=== PATIENT | male | born 1925 | race Caucasian/White ===

== ENCOUNTER 2016-07-14 11:07 | Inpatient (IN) | payer MEDICARE, BC ==
[2016-07-14] VITALS (8 sets, daily range): BP systolic 100–163; BP diastolic 52–93; PULSE 54–86; RESP 16–20; TEMP 96.2–98.1; O2SAT 94–98
[~2016-07-14 11:07] MED LIST: APIX5 PO; DOXA1 PO; FEXO180 PO; LASI20TA PO; LEVA500T PO; METO50TA PO; POTA-243 PO; PRAV20 PO
[2016-07-14 12:52] LABS: MEAN CORPUSCULAR HGB CONC 29.5 % (32.0-36.0)
--- NOTE | 2016-07-14 13:28 | PD ---
HPI Chief Complaint: Skin Problem Time Seen by Provider: 12:39 Travel History International Travel<30 days: No Contact w/Intl Traveler<30days: No Traveled to known affect area: No History of Present Illness HPI This is an 89-year-old male who presents to the emergency department reporting that he has a wound on his bottom. He is unable to provide much history. I spoke to the patient's over the phone who reports that he's been having difficulty standing up from his chair and he's been increasingly weak. Today he got stuck and wasn't able to stand so she called EMS. When EMS arrived they noticed that he had a wound on his buttock and were concerned so they referred him to the emergency department. Has not been ill lately. He does have a history of chronic lymphedema. He lives at home with his was also elderly. She does have a home health child day care provider that comes in for times a week to help bathe him. PFSH Past Medical History Hx Anticoagulant Therapy: Yes Atrial Fibrillation: Yes Heart Rhythm Problems: Yes (a-fib) Cancer: No Cardiovascular Problems: Yes (htn on meds.) High Cholesterol: Yes Chest Pain: No Congestive Heart Failure: No Diabetes: No Endocrine: No Genitourinary: No (denies) Hypertension: Yes Immune Disorder: No Musculoskeletal: No Neurologic: No Psychiatric: No Reproductive: No Respiratory: No Thyroid Disease: No Social History Alcohol Use: Yes (occas. beer) Tobacco Use: No Substance Use: No Allergies-Medications (Allergen,Severity, Reaction): Coded Allergies: No Known Allergies (Unverified , 07/14/16) Reported Meds & Prescriptions Reported Meds & Active Scripts Active Reported Betamethasone Valerate Topical 0.1% Cream 1 Applic TOPICAL BID Apply to affected area(s) Eliquis (Apixaban) 5 Mg Tab 5 Mg PO BID Vitamin D3 (Cholecalciferol) 50,000 Unit Tab 50,000 Units PO WEEKLY Review of Systems ROS Limitations: Poor Historian Physical Exam Narrative GENERAL: Chronically ill-appearing, disheveled. Morbidly obese. SKIN: Skin tear along the right gluteus with no underlying fluctuance or induration. Chronic thickened skin in the lower extremities with some weeping edema. HEAD: Atraumatic. Normocephalic. EYES: Pupils equal and round. No injection or drainage. ENT: Moist mucous membranes NECK: Trachea midline. CARDIOVASCULAR: Regular rate and rhythm. No murmur appreciated. RESPIRATORY: Clear to auscultation. Breath sounds equal bilaterally. GASTROINTESTINAL: Abdomen soft, non-tender, nondistended. MUSCULOSKELETAL: No obvious deformities. NEUROLOGICAL: Oriented to person and place but not time. No obvious cranial nerve deficits. Moving all extremities. Unable to roll onto his side without assistance. Data Data Last Documented VS Vital Signs Date Time Temp Pulse Resp B/P Pulse Ox O2 Delivery O2 Flow Rate FiO2 07/14/16 12:33 16 07/14/16 11:38 97.7 60 100/52 96 Orders Complete Blood Count With Diff (07/14/16 12:51) Comprehensive Metabolic Panel (07/14/16 12:51) ^ Insert Iv (07/14/16 12:51) Prothrombin Time / Inr (Pt) (07/14/16 14:28) Act Partial Throm Time (Ptt) (07/14/16 14:28) Type And Screen (07/14/16 14:28) Pantoprazole Inj (Protonix Inj) (07/14/16 15:45) Pantoprazole Inj (Protonix Inj) (07/14/16 15:45) Admit Order (Ed Use Only) (07/14/16 14:42) Labs Laboratory Tests Test 07/14/16 13:30 White Blood Count 8.6 TH/MM3 Red Blood Count 3.25 MIL/MM3 Hemoglobin 7.6 GM/DL Hematocrit 25.8 % Mean Corpuscular Volume 79.6 FL Mean Corpuscular Hemoglobin 23.5 PG Mean Corpuscular Hemoglobin 29.5 % Concent Red Cell Distribution Width 18.0 % Platelet Count 212 TH/MM3 Mean Platelet Volume 7.5 FL Neutrophils (%) (Auto) 83.4 % Lymphocytes (%) (Auto) 7.2 % Monocytes (%) (Auto) 7.7 % Eosinophils (%) (Auto) 1.4 % Basophils (%) (Auto) 0.3 % Neutrophils # (Auto) 7.2 TH/MM3 Lymphocytes # (Auto) 0.6 TH/MM3 Monocytes # (Auto) 0.7 TH/MM3 Eosinophils # (Auto) 0.1 TH/MM3 Basophils # (Auto) 0.0 TH/MM3 CBC Comment AUTO DIFF Differential Comment AUTO DIFF CONFIRMED Ovalocytes 1+ Sodium Level 146 MEQ/L Potassium Level 3.9 MEQ/L Chloride Level 110 MEQ/L Carbon Dioxide Level 28.8 MEQ/L Anion Gap 7 MEQ/L Blood Urea Nitrogen 48 MG/DL Creatinine 2.43 MG/DL Estimat Glomerular Filtration 25 ML/MIN Rate Random Glucose 105 MG/DL Calcium Level 8.2 MG/DL Total Bilirubin 0.5 MG/DL Aspartate Amino Transf 26 U/L (AST/SGOT) Alanine Aminotransferase 21 U/L (ALT/SGPT) Alkaline Phosphatase 122 U/L Total Protein 6.6 GM/DL Albumin 1.9 GM/DL MDM Medical Decision Making Medical Screen Exam Complete: Yes Emergency Medical Condition: Yes Interpretation(s) Afebrile, no tachycardia, normotensive Anemia Renal insufficiency Differential Diagnosis Abscess, cellulitis, electrolyte abnormality, anemia Narrative Course This is a chronically ill-appearing 89-year-old male who presents to the emergency department with general weakness unable to stand independently. He lives alone with his elderly . On exam he has some breakdown in his buttock area which they were concerned about but there is no obvious abscess or ulceration there. Labs were obtained given his ill appearance and he has evidence of severe anemia. He was Hemoccult-positive. He was started on pantoprazole and will be admitted. HemaPrompt Point of Care Internal Pos. & Neg. Controls: Passed Fecal Specimen Occult Blood: Positive Physician Communication Physician Communication Discussed with Dr. Perrin Diagnosis Primary Impression: GI bleed Qualified Code: K92.2 - Gastrointestinal hemorrhage, unspecified gastrointestinal hemorrhage type Admitting Information Admitting Physician Requests: Admit Vania Alonso MD Jul 14, 2016 13:28
[2016-07-14] MEDS ORDERED: CHOL1TAB16 PO (13:46)
[2016-07-14] MEDS ORDERED: APIX5TAB PO (13:46)
[2016-07-14] MEDS ORDERED: BETA0.1C TOPICAL (13:46)
[2016-07-14] MEDS ORDERED: WARF-23 PO (13:46)
[2016-07-14 13:58] LABS: AUTOMATED NEUTROPHIL # 7.2 TH/MM3 (1.8-7.7); BASOPHIL % 0.3 % (0.0-2.0); EOSINOPHIL # 0.1 TH/MM3 (0-0.4); EOSINOPHIL % 1.4 % (0.0-4.0); HEMATOCRIT 25.8 % (39.0-51.0); LYMPH % 7.2 % (9.0-44.0); LYMPHOCYTE # 0.6 TH/MM3 (1.0-4.8); MEAN CELL VOLUME 79.6 FL (80.0-100.0); MEAN CORPUSCULAR HEMOGLOBIN 23.5 PG (27.0-34.0); MONO % 7.7 % (0.0-8.0); NEUT % 83.4 % (16.0-70.0); PLATELET COUNT 212 TH/MM3 (150-450); RED BLOOD COUNT 3.25 MIL/MM3 (4.50-5.90); WHITE BLOOD COUNT 8.6 TH/MM3 (4.0-11.0)
[2016-07-14 14:01] LABS: HEMO FLAGS AUTO DIFF
[2016-07-14 14:20] LABS: ALKALINE PHOSPHATASE 122 U/L (45-117); ALT (GPT) 21 U/L (12-78); ANION GAP 7 MEQ/L (5-15); AST (GOT) 26 U/L (15-37); BICARBONATE 28.8 MEQ/L (21.0-32.0); BLOOD UREA NITROGEN 48 MG/DL (7-18); CHLORIDE 110 MEQ/L (98-107); GLOMERULAR FILTRATION RATE 25 ML/MIN (>89); POTASSIUM 3.9 MEQ/L (3.5-5.1); SODIUM (NA) 146 MEQ/L (136-145); TOTAL BILIRUBIN ADULT 0.5 MG/DL (0.2-1.0)
[2016-07-14 14:41] LABS: OVALOCYTES 1+ (NORMAL); SCAN/DIFF AUTO DIFF CONFIRMED
[2016-07-14] MEDS: PANTOPRAZOLE INJ 80 MG in SODIUM CHLORIDE 0.9% INJ 100 ML IV SCH (15:33)
[2016-07-14 15:45] LABS: APTT (PATIENT) 35.1 SEC (24.3-30.1); INTERNATIONAL NORMALIZED RATIO 1.3 RATIO; PROTHROMBIN TIME - PATIENT 14.5 SEC (9.8-11.6)
[2016-07-14] MEDS ORDERED: PANTOPRAZOLE INJ 80 MG in SODIUM CHLORIDE 0.9% INJ 35 ML IV ONE (15:45)
[2016-07-14] MEDS ORDERED: SODIUM CHLORIDE 0.9% FLUSH 10 ML FLUSH IV FLUSH PRN (16:15)
[2016-07-14] MEDS ORDERED: MAGNESIUM HYDROXIDE SUSP 30 ML CUP PO PRN (16:15)
[2016-07-14] MEDS ORDERED: ONDANSETRON HCL 4 MG/2 ML VIAL IVP PRN (16:15)
[2016-07-14] MEDS ORDERED: ACETAMINOPHEN 325 MG TAB PO PRN (16:15)
[2016-07-14] MEDS ORDERED: NALOXONE HCL 0.4 MG/ML AMP IV PRN (16:15)
[2016-07-14] MEDS ORDERED: PANTOPRAZOLE SODIUM 40 MG VIAL IV PUSH SCH (16:30)
[2016-07-14] MEDS ORDERED: DEXT 5%-NACL 0.45% 1000 ML INJ 1,000 ML IV SCH (17:00)
--- NOTE | 2016-07-14 17:20 | RADRPT ---
EXAM DATE/TIME: 07/14/2016 16:34 [facility] COMPARISON: No previous studies available for comparison. INDICATIONS : Increased BUN/creatinine. MEDICAL HISTORY : Hypertension. Hypercholesterolemia. Afib. Type 2 pressure ulcer. Anticoagulant therapy. Exam is li mited by the patient's body habitus. SURGICAL HISTORY : No known previous surgical history. ENCOUNTER: Initial ACUITY: 1 day PAIN SCORE: 0/10 LOCATION: Bilateral flank MEASUREMENTS: RIGHT KIDNEY: 12.3 x 6.4 x 6.1 cm LEFT KIDNEY: 12.7 x 6.1 x 7.3 cm FINDINGS: RIGHT KIDNEY: Renal cortex is normal in thickness and echotexture. Prominent collecting system is evident. LEFT KIDNEY: Prominence of the collecting system is evident. BLADDER: Within normal limits given the degree of distension. CONCLUSION: Mild to moderate prominence of the collecting system bilaterally. I do not see dilat ed ureter. Héctor Machado MD FACR on July 14, 2016 at 17:16 Board Certified Radiologist. This report was verified electronically.
[2016-07-14] MEDS ORDERED: PEG (High)/E-LYTE SOLN 4000 ML BTL PO ONE (19:15)
[2016-07-14] MEDS: SODIUM CHLORIDE 0.9% FLUSH 10 ML FLUSH IV FLUSH SCH (21:00)
[2016-07-15] VITALS (11 sets, daily range): BP systolic 134–161; BP diastolic 68–97; PULSE 85–97; RESP 18–22; TEMP 95.3–97.9; O2SAT 94–97
[2016-07-15] MEDS: PANTOPRAZOLE INJ 80 MG in SODIUM CHLORIDE 0.9% INJ 100 ML IV SCH ×3 (00:18→21:04)
[2016-07-15 06:27] LABS: AUTOMATED NEUTROPHIL # 6.3 TH/MM3 (1.8-7.7); BASOPHIL % 0.6 % (0.0-2.0); EOSINOPHIL # 0.2 TH/MM3 (0-0.4); EOSINOPHIL % 2.4 % (0.0-4.0); HEMATOCRIT 27.5 % (39.0-51.0); LYMPH % 8.2 % (9.0-44.0); LYMPHOCYTE # 0.6 TH/MM3 (1.0-4.8); MEAN CELL VOLUME 79.3 FL (80.0-100.0); MEAN CORPUSCULAR HEMOGLOBIN 24.5 PG (27.0-34.0); MEAN CORPUSCULAR HGB CONC 30.9 % (32.0-36.0); MONO % 6.8 % (0.0-8.0); PLATELET COUNT 206 TH/MM3 (150-450); RED BLOOD COUNT 3.47 MIL/MM3 (4.50-5.90); RED CELL DISTRIBUTION WIDTH 17.8 % (11.6-17.2); WHITE BLOOD COUNT 7.7 TH/MM3 (4.0-11.0)
[2016-07-15 06:43] LABS: HEMO FLAGS AUTO DIFF
[2016-07-15 06:49] LABS: BICARBONATE 27.7 MEQ/L (21.0-32.0); POTASSIUM 3.4 MEQ/L (3.5-5.1)
[2016-07-15 08:22] LABS: OVALOCYTES 2+ (NORMAL); SCAN/DIFF AUTO DIFF CONFIRMED
[2016-07-15] MEDS: SODIUM CHLORIDE 0.9% FLUSH 10 ML FLUSH IV FLUSH SCH ×2 (09:00→21:00)
--- NOTE | 2016-07-15 10:20 | HHI.HP ---
History of Present Illness Primary Care Physician Non-Staff Admission Diagnosis gi bleed Diagnoses: (1) GI bleed History of Present Illness 89 y CM. HOME VISIT PATIENT. PT BEGAN HAVING GIB. LIVES AT HOME WITH HIS . TAKING LESS PO AND ENDED UP COMING TO [facility] ER. FOUND W SEVERE ANEMIA. TRANSFUSED TWO UNITS PRBC'S. PT TYPICALLY IS UP AND WALKS SOME IN HIS BEDROOM, AND BACK AND FORTH SOME TO THE RESTROOM. HAS HAD GENERAL DECLINE OVER THE LAST THREE WEEKS PER THE DGTR. DGTR IS AT BEDSIDE. Review of Systems ROS Limitations: Clinical Condition, Altered Mental Status, Hearing Impaired, Poor Historian Past Family Social History Allergies: Coded Allergies: No Known Allergies (Unverified , 07/14/16) Past Medical History Past Medical History Hx Anticoagulant Therapy: Yes Atrial Fibrillation: Yes Heart Rhythm Problems: Yes (a-fib) Cancer: No Cardiovascular Problems: Yes (htn on meds.) High Cholesterol: Yes Chest Pain: No Congestive Heart Failure: No Diabetes: No Endocrine: No Genitourinary: No (denies) Hypertension: Yes Immune Disorder: No Musculoskeletal: No Neurologic: No Psychiatric: No Reproductive: No Respiratory: No Thyroid Disease: No Social History Alcohol Use: Yes (occas. beer) Tobacco Use: No Substance Use: No Allergies-Medications Allergies-Medications (Allergen,Severity, Reaction): Coded Allergies: No Known Allergies (Unverified , 07/14/16) Reported Meds & Prescriptions Reported Meds & Active Scripts Active Reported Betamethasone Valerate Topical 0.1% Cream 1 Applic TOPICAL BID Apply to affected area(s) Eliquis (Apixaban) 5 Mg Tab 5 Mg PO BID Vitamin D3 (Cholecalciferol) 50,000 Unit Tab 50,000 Units PO WEEKLY Physical Exam Vital Signs Vital Signs Date Time Temp Pulse Resp B/P Pulse Ox O2 Delivery O2 Flow Rate FiO2 07/15/16 09:38 90 07/15/16 09:29 97 21 07/15/16 08:00 96.4 94 20 134/72 95 07/15/16 04:00 96.8 94 22 139/76 94 07/15/16 02:15 97.6 85 22 144/88 95 07/15/16 00:08 97.5 85 18 145/96 97 07/15/16 00:00 97.9 87 22 153/93 94 07/14/16 23:52 97.9 86 18 153/93 94 07/14/16 23:30 97.9 86 18 153/93 94 07/14/16 21:31 96.2 85 20 145/78 95 07/14/16 21:15 96.7 54 20 156/72 95 07/14/16 20:00 96.7 54 20 156/72 95 07/14/16 16:59 98.1 79 17 163/76 96 Room Air 07/14/16 15:33 97.8 68 16 137/63 98 Room Air 07/14/16 12:33 16 07/14/16 11:38 97.7 60 18 100/52 96 Physical Exam GENERAL: This is a well-nourished, well-developed patient, in no apparent distress. SKIN: LARGE CHRONIC STASIS CHANGES BLE'S TO PATELLAS, HYPERKERATOTIC; LARGE BUTTOCK HEMATOMA R>L WITH OOZING HEAD: Atraumatic. Normocephalic. No temporal or scalp tenderness. EYES: Pupils equal round and reactive. Extraocular motions intact. No scleral icterus. No injection or drainage. ENT: Nose without bleeding, purulent drainage or septal hematoma. Throat without erythema, tonsillar hypertrophy or exudate. Uvula midline. Airway patent. NECK: Trachea midline. No JVD or lymphadenopathy. Supple, nontender, no meningeal signs. CARDIOVASCULAR: Regular rate and rhythm without murmurs, gallops, or rubs. RESPIRATORY: Clear to auscultation. Breath sounds equal bilaterally. No wheezes , rales, or rhonchi. GASTROINTESTINAL: Abdomen soft, non-tender, nondistended. No hepato-splenomegaly , or palpable masses. No guarding. MUSCULOSKELETAL: Extremities without clubbing, cyanosis. No joint tenderness, effusion, or edema noted. No calf tenderness. Negative Homans sign bilaterally. NEUROLOGICAL: Awake and alert. Cranial nerves II through XII intact. Motor and sensory grossly within normal limits. 1 out of 5 muscle strength in all muscle groups. Normal speech. Laboratory Laboratory Tests Test 07/14/16 07/14/16 07/14/16 07/14/16 13:30 14:50 16:27 16:42 White Blood Count 8.6 Red Blood Count 3.25 Hemoglobin 7.6 Hematocrit 25.8 Mean Corpuscular Volume 79.6 Mean Corpuscular Hemoglobin 23.5 Mean Corpuscular Hemoglobin 29.5 Concent Red Cell Distribution Width 18.0 Platelet Count 212 Mean Platelet Volume 7.5 Neutrophils (%) (Auto) 83.4 Lymphocytes (%) (Auto) 7.2 Monocytes (%) (Auto) 7.7 Eosinophils (%) (Auto) 1.4 Basophils (%) (Auto) 0.3 Neutrophils # (Auto) 7.2 Lymphocytes # (Auto) 0.6 Monocytes # (Auto) 0.7 Eosinophils # (Auto) 0.1 Basophils # (Auto) 0.0 CBC Comment AUTO DIFF Differential Comment AUTO DIFF CONFIRMED Ovalocytes 1+ Sodium Level 146 Potassium Level 3.9 Chloride Level 110 Carbon Dioxide Level 28.8 Anion Gap 7 Blood Urea Nitrogen 48 Creatinine 2.43 Estimat Glomerular Filtration 25 Rate Random Glucose 105 Calcium Level 8.2 Total Bilirubin 0.5 Aspartate Amino Transf 26 (AST/SGOT) Alanine Aminotransferase 21 (ALT/SGPT) Alkaline Phosphatase 122 Total Protein 6.6 Albumin 1.9 Prothrombin Time 14.5 Prothromb Time International 1.3 Ratio Activated Partial 35.1 Thromboplast Time Blood Type AB POSITIVE AB POSITIVE Antibody Screen NEGATIVE Blood Bank Comment Crossmatch Leukocyte-Reduced Red Blood Cells Test 07/15/16 06:06 White Blood Count 7.7 Red Blood Count 3.47 Hemoglobin 8.5 Hematocrit 27.5 Mean Corpuscular Volume 79.3 Mean Corpuscular Hemoglobin 24.5 Mean Corpuscular Hemoglobin 30.9 Concent Red Cell Distribution Width 17.8 Platelet Count 206 Mean Platelet Volume 7.0 Neutrophils (%) (Auto) 82.0 Lymphocytes (%) (Auto) 8.2 Monocytes (%) (Auto) 6.8 Eosinophils (%) (Auto) 2.4 Basophils (%) (Auto) 0.6 Neutrophils # (Auto) 6.3 Lymphocytes # (Auto) 0.6 Monocytes # (Auto) 0.5 Eosinophils # (Auto) 0.2 Basophils # (Auto) 0.0 CBC Comment AUTO DIFF Differential Comment AUTO DIFF CONFIRMED Ovalocytes 2+ Sodium Level 150 Potassium Level 3.4 Chloride Level 113 Carbon Dioxide Level 27.7 Anion Gap 9 Blood Urea Nitrogen 45 Creatinine 2.18 Estimat Glomerular Filtration 29 Rate Random Glucose 104 Calcium Level 8.2 Result Diagram: 07/15/16 0606 07/15/16 0606 Imaging Last 72 hours Impressions Renal Ultrasound 07/14/16 0000 Signed Impressions: Service Date/Time: Thursday, July 14, 2016 16:34 - CONCLUSION: Mild to moderate prominence of the collecting system bilaterally. I do not see dilated ureter. Héctor Machado MD FACR Assessment and Plan Assessment and Plan GIB ACUTE BLOOD LOSS ANEMIA LARGE BUTTOCK HEMATOMA WITH BLEEDING AFIB ON ELIQUIS HYPERNATREMIA HERBERTH URINARY OBSTRUCTION OF RENAL US HYPOKALEMIA DEHYDRATION CHRONIC EDEMA ELEPHANTIASIS W STASIS CHANGES HTN CAD PLAN: NPO IVF REPLACE K IV PROTONIX GTT PLACE FALL PSA CHECK GI CONSULT NEPHRO CONSULT WOUND CONSULT INPT ADMIT FOR THE ABOVE DX AND PLAN. EXPECT THREE D INPT STAY. PT WOULD W/O INPT WORKUP OUTLINED ABOVE. Problem Qualifiers (1) GI bleed: Qualified Code: K92.2 - Gastrointestinal hemorrhage, unspecified gastrointestinal hemorrhage type Berto Perrni MD Jul 15, 2016 10:20
[2016-07-15] MEDS ORDERED: D5W + KCL 20 MEQ INJ 1,000 ML IV SCH (12:00)
[2016-07-15] MEDS ORDERED: PROPOFOL 200 MG/20 ML AMP IV ONE (15:11)
--- NOTE | 2016-07-15 15:55 | GIPROC ---
[facility] [address] [facility]. [facility], [address] COLONOSCOPY PROCEDURE REPORT EXAM DATE: 07/15/2016 PATIENT NAME: Marcus Ling MR #: [id number] BIRTHDATE: 1925 ENDOSCOPIST: Hans Vieyra MD ORDER #: [id number] CURRICULUM MANAGER: Efrem Florence and xAel Perez STATUS: inpatient INDICATIONS: The patient is a 89 yr old male here for a colonoscopy due to rectal bleeding PROCEDURE PERFORMED: Colonoscopy with polypectomy MEDICATIONS: None and Per Anesthesia. PREP QUALITY: good ESTIMATED BLOOD LOSS: None CONSENT: The patient understands the risks and benefits of the procedure and understands that these risks include, but are not limited to: sedation, allergic reaction, infection, perforation and/or bleeding. Alternative means of evaluation and treatment include, among others: physical exam, x-rays, and/or surgical intervention. The patient elects to proceed with this endoscopic procedure. medical equipment was checked for proper function. Hand hygiene and appropriate measures for infection prevention was taken. After the risks, benefits and alternatives of the procedure were thoroughly explained, Informed consent was verified, confirmed and timeout was successfully executed by the treatment team. A digital exam revealed no abnormalities of the rectum and Early decubitus ulcer noted in the coccyx area The Pentax EC-[id number] endoscope was introduced through the anus and advanced to the cecum, which was identified by both the appendix and ileocecal valve. The instrument was then slowly withdrawn as the colon was fully examined. COLON FINDINGS: Two large pedunculated polyps were found in the distal transverse colon. Adenomatous. A polypectomy was performed using snare cautery. The resection was complete and the polyp tissue was completely retrieved. Moderate diverticulosis was noted throughout the entire examined colon. A medium sized patch of abnormal mucosa was found in the rectum. The mucosa was erythematous, friable and nodular. Multiple biopsies were performed. The colon mucosa was otherwise normal. Retroflexed views revealed no abnormalities The scope was then completely withdrawn from the patient and the procedure terminated. PROCEDURE WITHDRAWAL TIME: 8.0minutes ADVERSE EVENTS: There were no complications. IMPRESSIONS: 1. Two large pedunculated polyps were found in the distal transverse colon; Adenomatous; polypectomy was performed using snare cautery 2. Moderate diverticulosis was noted throughout the entire examined colon 3. Medium sized abnormal mucosa was found in the rectum; The mucosa was erythematous, friable and nodular; multiple biopsies were performed 4. The colon mucosa was otherwise normal 5. Retroflexed views revealed no abnormalities 6. Revealed no abnormalities of the rectum 7. Early decubitus ulcer noted in the coccyx area RECOMMENDATIONS: 1. Await biopsy results. Biopsy results will not be ready for 7-10 days. If you don't hear from us in two weeks, call our office for results. 2. High fiber diet 3. Yearly hemoccult RECALL: Return 3 years Colonoscopy Hans Vieyra MD eSigned: Hans Vieyra MD 07/15/2016 3:55 PM cc: PATIENT NAME: Marcus Ling MR#: [id number]
--- NOTE | 2016-07-15 15:57 | GIPROC ---
[facility] [address] [facility]. [facility], [address] EGD PROCEDURE REPORT EXAM DATE: 07/15/2016 PATIENT NAME: Marcus Ling MR #: [id number] BIRTHDATE: 1925 ATTENDING: Hans Vieyra MD ORDER #: [id number] PICK UP MAN: Efrem Florence and Axel Perez STATUS: inpatient INDICATIONS: The patient is a 89 yr old male here for an EGD due to anemia PROCEDURE PERFORMED: EGD w/ biopsy MEDICATIONS: None and Per Anesthesia. TOPICAL ANESTHETIC: CONSENT: The patient understands the risks and benefits of the procedure and understands that these risks include, but are not limited to: sedation, allergic reaction, infection, perforation and/or bleeding. Alternative means of evaluation and treatment include, among others: physical exam, x-rays, and/or surgical intervention. The patient elects to proceed with this endoscopic procedure. medical equipment was checked for proper function. Hand hygiene and appropriate measures for infection prevention was taken. After the risks, benefits and alternatives of the procedure were thoroughly explained, Informed consent was verified, confirmed and timeout was successfully executed by the treatment team. The patient was anesthetized with topical anesthesia and the EC-[id number] (Pedi C) endoscope was introduced through the mouth and advanced to the second portion of the duodenum. Retroflexed views revealed no abnormalities The gastroscope was then slowly withdrawn and removed. STOMACH: There was erythematous moderate and erosive gastritis in the gastric antrum. Multiple biopsies were performed. The endoscopy was otherwise normal. ADVERSE EVENTS: There were no complications. IMPRESSIONS: 1. There was erythematous gastritis in the gastric antrum; multiple biopsies were performed 2. Normal endoscopy otherwise 3. Retroflexed views revealed no abnormalities RECOMMENDATIONS: 1. Await biopsy results. Biopsy results will not be ready for 7-10 days. If you don't hear from us in two weeks, call our office for biopsy results. 2. Continue PPI 3. Avoid NSAIDS PATIENT CONDITION: stable DISPOSITION: Inpatient REPEAT EXAM: Hans Vieyra MD eSigned: Hans Vieyra MD 07/15/2016 3:57 PM cc: PATIENT NAME: Marcus Ling MR#: [id number]
--- NOTE | 2016-07-15 16:04 | PD.CONS ---
HPI History of Present Illness This is a 89 year old male who was brought to the ER for evaluation of severe generalized weakness and found to have severe anemia. He has a hx of atrial fibrillation and takes Eliquis at home. He is a poor historian and therefore the history has been obtained from the patient and family. His family reports that he has been having generalized weakness and fatigue for the past 2 weeks and that this has progressively been getting worse. Yesterday, his was unable to get him up in the chair and therefore called for help. In the ER, he was found to have anemia with an HH of 7.6/25.8. He was given 2 units of PRBC and this came up to 8.5/27.5. He has a decubitus ulcer and reports that this bleeds from time to time, but he has not seen any blood in his stool. He denies any nausea, vomiting, abdominal pain. He does report that he has been having some loose stools, but his reports that these have been brown. He denies any hx of PUD and denies ever having an EGD/Colonoscopy in the past. Of note, he does have a history of prostate cancer and has had radiation for this in the past. (Suzette Bolden) PFSH Past Medical History Atrial fibrillation HTN Dyslipidemia Decubitus ulcer to coccyx Hx prostate cancer, radiation CAD Past Surgical History Denies (Suzette Bolden) Coded Allergies: No Known Allergies (Unverified , 07/14/16) Medications Allergies Coded Allergies Type Severity Reaction Last Updated Verified No Known Allergies 07/14/16 No Active Scripts Medications Dose Route/Sig Days Date Category Dose Instructions Betamethasone Valerate Topical 0.1% Cream 1 Applic TOPICAL BID 07/14/16 Reported Apply to affected area(s) Eliquis (Apixaban) 5 Mg Tab 5 Mg PO BID 07/14/16 Reported Vitamin D3 (Cholecalciferol) 50,000 Unit Tab 50,000 Units PO WEEKLY 07/14/16 Reported Family History Noncontributory Social History Denies the use of tobacco, etoh. (Suzette Bolden) Review of Systems Constitutional: COMPLAINS OF: Fatigue, DENIES: Weight loss, Change in appetite Respiratory: COMPLAINS OF: Shortness of breath, DENIES: Cough Cardiovascular: DENIES: Chest pain Gastrointestinal: DENIES: Abdominal pain, Black stools, Bloody stools, Constipation, Diarrhea, Nausea, Vomiting, Difficulty Swallowing, Anorexia, Heartburn Integumentary: DENIES: Abnormal pigmentation Neurologic: DENIES: Headache Psychiatric: DENIES: Confusion (Suzette Bolden) GI Exam Vitals I&O Vital Signs Date Time Temp Pulse Resp B/P Pulse Ox O2 Delivery O2 Flow Rate FiO2 07/15/16 15:58 91 18 156/89 96 07/15/16 15:53 88 18 135/77 96 07/15/16 15:45 98.1 96 18 117/69 96 07/15/16 12:00 97.1 97 20 137/83 95 07/15/16 09:38 90 07/15/16 09:29 97 21 07/15/16 08:00 96.4 94 20 134/72 95 07/15/16 04:00 96.8 94 22 139/76 94 07/15/16 02:15 97.6 85 22 144/88 95 07/15/16 00:08 97.5 85 18 145/96 97 07/15/16 00:00 97.9 87 22 153/93 94 07/14/16 23:52 97.9 86 18 153/93 94 07/14/16 23:30 97.9 86 18 153/93 94 07/14/16 21:31 96.2 85 20 145/78 95 07/14/16 21:15 96.7 54 20 156/72 95 07/14/16 20:00 96.7 54 20 156/72 95 07/14/16 16:59 98.1 79 17 163/76 96 Room Air I/O 07/14/16 07/14/16 07/14/16 07/15/16 07/15/16 07/15/16 07:00 15:00 23:00 07:00 15:00 23:00 Intake Total 0 ml 2968 ml 400 ml Balance 0 ml 2968 ml 400 ml Intake Oral 0 ml 2160 ml IV Total 208 ml 400 ml Packed Cells 600 ml # Voids 2 4 1 # Bowel Movements 2 4 Imaging Last Impressions Renal Ultrasound 07/14/16 0000 Signed Impressions: Service Date/Time: Thursday, July 14, 2016 16:34 - CONCLUSION: Mild to moderate prominence of the collecting system bilaterally. I do not see dilated ureter. Héctor Machado MD FACR Laboratory Test 07/14/16 07/14/16 07/15/16 07/15/16 16:27 16:42 06:06 10:50 Crossmatch Leukocyte-Reduced Red Blood Cells Blood Bank Comment Blood Type AB POSITIVE White Blood Count 7.7 TH/MM3 Red Blood Count 3.47 MIL/MM3 Hemoglobin 8.5 GM/DL Hematocrit 27.5 % Mean Corpuscular Volume 79.3 FL Mean Corpuscular Hemoglobin 24.5 PG Mean Corpuscular Hemoglobin 30.9 % Concent Red Cell Distribution Width 17.8 % Platelet Count 206 TH/MM3 Mean Platelet Volume 7.0 FL Neutrophils (%) (Auto) 82.0 % Lymphocytes (%) (Auto) 8.2 % Monocytes (%) (Auto) 6.8 % Eosinophils (%) (Auto) 2.4 % Basophils (%) (Auto) 0.6 % Neutrophils # (Auto) 6.3 TH/MM3 Lymphocytes # (Auto) 0.6 TH/MM3 Monocytes # (Auto) 0.5 TH/MM3 Eosinophils # (Auto) 0.2 TH/MM3 Basophils # (Auto) 0.0 TH/MM3 CBC Comment AUTO DIFF Differential Comment AUTO DIFF CONFIRMED Ovalocytes 2+ Sodium Level 150 MEQ/L Potassium Level 3.4 MEQ/L Chloride Level 113 MEQ/L Carbon Dioxide Level 27.7 MEQ/L Anion Gap 9 MEQ/L Blood Urea Nitrogen 45 MG/DL Creatinine 2.18 MG/DL Estimat Glomerular Filtration 29 ML/MIN Rate Random Glucose 104 MG/DL Calcium Level 8.2 MG/DL Prostate Specific Antigen 0.03 NG/ML Screen Physical Examination HEENT: Normocephalic; atraumatic; no jaundice. CHEST: Expiratory wheezing. CARDIAC: Irregular ABDOMEN: Soft, nondistended, nontender; no hepatosplenomegaly; bowel sounds are present in all four quadrants. EXTREMITIES: BLE edema. SKIN: Normal; no rash; no jaundice. HAND LAMINATOR: No focal deficits; lethargic and oriented times two (Suzette Bolden) Assessment and Plan Plan ASSESSMENT: - Anemia. Family reports generalized weakness x 2 weeks, progressively worsening. No obvious active bleeding. HH of 7.6/25.8 on admission. S/P 2 units of PRBC and this came up to 8.5/27.5. He has a decubitus ulcer and reports that this bleeds from time to time, but he has not seen any blood in his stool. He denies any nausea, vomiting, abdominal pain. He does report that he has been having some loose stools, but his reports that these have been brown. He denies any hx of PUD and denies ever having an EGD/Colonoscopy in the past. Of note, he does have a history of prostate cancer and has had radiation for this in the past. - Afib, on Eliquis at home. On hold. - Large buttock hematoma/ulcer. Per primary - HERBERTH with electrolyte abnormalities, per primary - HTN, CAD per primary PLAN: - Plan for egd/colonoscopy today - Obtain consents - NPO - Golytely - PPI - Monitor HH - Transfuse as necessary - Supportive care - Further recommendations to follow based on results of above - PT seen and examined by Dr. Vieyra and myself and this note is written on his behalf (Suzette Bolden) Physician Comments Patient seen and examined Agree with above Continue with current supportive care Plan for an EGD and a colonoscopy today (Hans Vieyra MD) Suzette Bolden Jul 15, 2016 16:04 Hans Vieyra MD Jul 15, 2016 17:46
--- NOTE | 2016-07-15 19:23 | PD.CONS ---
HPI Consult Requested By Reason for Consult Acute renal insufficiency. Primary Care Physician Non-Staff History of Present Illness This patient is a 10-year-old male with a history of hypertension, diabetes mellitus as well as atrial fibrillation presenting with fatigue and noted to be profoundly anemic on presentation. Patient now status post upper endoscopy and colonoscopy revealing gastritis as well as colonic polyps. Presentation patient had evidence of hyponatremia with a sodium of 146 and a creatinine of 2.43. Baseline creatinine level based on preadmission records appears to be about 1.2 with an estimated GFR of 57. Patient denies using NSAIDs prior to admission for analgesia. No vomiting or diarrhea. Review of Systems Constitutional: COMPLAINS OF: Fatigue, Change in appetite, DENIES: Diaphoretic episodes, Fever, Weight gain, Weight loss, Chills, Dizziness, Night Sweats Respiratory: DENIES: Apneas, Cough, Snoring, Wheezing, Hemoptysis, Sputum production, Shortness of breath Cardiovascular: DENIES: Chest pain, Palpitations, Syncope, Dyspnea on Exertion , PND, Lower Extremity Edema, Orthopnea, Claudication Musculoskeletal: COMPLAINS OF: Joint pain, DENIES: Muscle aches, Stiffness, Joint Swelling, Back pain, Neck pain Psychiatric: DENIES: Anxiety Past Family Social History Allergies: Coded Allergies: No Known Allergies (Unverified , 07/14/16) Past Medical History Hypertension Atrial fibrillation Diabetes mellitus CKD stage III with GFR below 60 previously. Past Surgical History Noncontributory to current complaint. Reported Medications Reported Meds & Active Scripts Active Reported Betamethasone Valerate Topical 0.1% Cream 1 Applic TOPICAL BID Apply to affected area(s) Eliquis (Apixaban) 5 Mg Tab 5 Mg PO BID Vitamin D3 (Cholecalciferol) 50,000 Unit Tab 50,000 Units PO WEEKLY Active Ordered Medications Current Medications Pantoprazole Sodium 80 mg/ Sodium Chloride 35 ml @ 420 mls/hr ONCE ONCE IV Last administered on 07/14/16 14:57; Start 07/14/16 at 15:45; Stop 07/14/16 at 15:49; Status DC Pantoprazole Sodium/Sodium Chloride (Protonix Inj/NS Inj) 100 ml @ 10 mls/hr Q10H IV Last administered on 07/15/16 11:45; Start 07/14/16 at 15:45 Sodium Chloride (NS Flush) 2 ml UNSCH PRN IV FLUSH FLUSH AFTER USING IV ACCESS ; Start 07/14/16 at 16:15 Sodium Chloride (NS Flush) 2 ml BID IV FLUSH ; Start 07/14/16 at 21:00 Acetaminophen (Tylenol) 650 mg Q4H PRN PO TEMP > 100.4; Start 07/14/16 at 16:15 Ondansetron HCl (Zofran Inj) 4 mg Q6H PRN IVP NAUSEA OR VOMITING; Start at 16:15 Magnesium Hydroxide (Milk Of Magnesia Liq) 30 ml Q12H PRN PO CONSTIPATION; Start 07/14/16 at 16:15 Naloxone HCl (Narcan Inj) 0.4 mg UNSCH PRN IV SEE LABEL COMMENTS; Start at 16:15 Clonidine 0.1 mg 0.1 mg Q6H PRN PO SBP>160, DBP>90; Start 07/14/16 at 16:30 Dextrose/Sodium Chloride (D5W-1/2 NS 1000 ml Inj) 1,000 ml @ 42 mls/hr [id number] IV Last administered on 07/14/16 16:58; Start 07/14/16 at 17:00; Stop at 10:33; Status DC Pantoprazole Sodium (Protonix Inj) 40 mg Q24H IV PUSH ; Start 07/14/16 at 16:30 ; Stop 07/14/16 at 16:43; Status DC Polyethylene Glycol/ Electrolytes 4000 ml 4,000 ml ONCE ONCE PO Last administered on 07/14/16 19:15; Start 07/14/16 at 19:15; Stop 07/14/16 at 19:16 ; Status DC Potassium Chloride/Dextrose (D5W + KCl 20 Meq Inj) 1,000 ml @ 42 mls/hr [id number] IV Last administered on 07/15/16 12:00; Start 07/15/16 at 12:00 Propofol (Diprivan 200 Mg/20 ml Inj) 200 mg STK-MED ONCE IV ; Start 07/15/16 at 15:11; Stop 07/15/16 at 16:34; Status DC Family History Denies known family history of renal disease. Social History No current history of alcohol abuse or illicit drug use. Physical Exam Vital Signs Vital Signs Date Time Temp Pulse Resp B/P Pulse Ox O2 Delivery O2 Flow Rate FiO2 07/15/16 17:00 95.3 96 20 135/97 95 07/15/16 15:58 91 18 156/89 96 07/15/16 15:53 88 18 135/77 96 07/15/16 15:45 98.1 96 18 117/69 96 07/15/16 12:00 97.1 97 20 137/83 95 07/15/16 09:38 90 07/15/16 09:29 97 21 07/15/16 08:00 96.4 94 20 134/72 95 07/15/16 04:00 96.8 94 22 139/76 94 07/15/16 02:15 97.6 85 22 144/88 95 07/15/16 00:08 97.5 85 18 145/96 97 07/15/16 00:00 97.9 87 22 153/93 94 07/14/16 23:52 97.9 86 18 153/93 94 07/14/16 23:30 97.9 86 18 153/93 94 07/14/16 21:31 96.2 85 20 145/78 95 07/14/16 21:15 96.7 54 20 156/72 95 07/14/16 20:00 96.7 54 20 156/72 95 Physical Exam GENERAL: Elderly male not in respiratory distress. Obese. SKIN: Warm and dry. HEAD: Normocephalic. EYES: No scleral icterus. No injection or drainage. NECK: Supple, trachea midline. No JVD or lymphadenopathy. CARDIOVASCULAR: Regular rate and rhythm without murmurs, gallops, or rubs. RESPIRATORY: Breath sounds equal bilaterally. No accessory muscle use. GASTROINTESTINAL: Abdomen soft, non-tender, nondistended. MUSCULOSKELETAL: No cyanosis, no current significant edema but there is wrinkling of the skin of the lower extremities i.e. legs suggesting that the patient has had significant edema in the recent past BACK: No CVA tenderness. Laboratory Laboratory Tests Test 07/15/16 07/15/16 06:06 10:50 White Blood Count 7.7 Red Blood Count 3.47 Hemoglobin 8.5 Hematocrit 27.5 Mean Corpuscular Volume 79.3 Mean Corpuscular Hemoglobin 24.5 Mean Corpuscular Hemoglobin 30.9 Concent Red Cell Distribution Width 17.8 Platelet Count 206 Mean Platelet Volume 7.0 Neutrophils (%) (Auto) 82.0 Lymphocytes (%) (Auto) 8.2 Monocytes (%) (Auto) 6.8 Eosinophils (%) (Auto) 2.4 Basophils (%) (Auto) 0.6 Neutrophils # (Auto) 6.3 Lymphocytes # (Auto) 0.6 Monocytes # (Auto) 0.5 Eosinophils # (Auto) 0.2 Basophils # (Auto) 0.0 CBC Comment AUTO DIFF Differential Comment AUTO DIFF CONFIRMED Ovalocytes 2+ Sodium Level 150 Potassium Level 3.4 Chloride Level 113 Carbon Dioxide Level 27.7 Anion Gap 9 Blood Urea Nitrogen 45 Creatinine 2.18 Estimat Glomerular Filtration 29 Rate Random Glucose 104 Calcium Level 8.2 Prostate Specific Antigen 0.03 Screen Result Diagram: 07/15/16 0606 07/15/16 0606 Imaging Last 48 hours Impressions Renal Ultrasound 07/14/16 0000 Signed Impressions: Service Date/Time: Thursday, July 14, 2016 16:34 - CONCLUSION: Mild to moderate prominence of the collecting system bilaterally. I do not see dilated ureter. Héctor Machado MD FACR Assessment and Plan Problem List: (1) Acute kidney insufficiency Plan: Primarily secondary to intravascular volume depletion from poor fluid intake prior to admission as well as recent GI bleed. Agree with IV hydration but would increase rate. Unsure as to the clinical significance of the finding on the ultrasound. Patient denying symptoms suggesting prostatism. Continue to monitor urine output and renal indices. Check vitamin D level and intact PTH level to screen for secondary hyperparathyroidism of chronic kidney disease. Medications should be adjusted for the patient's estimated GFR if clinically indicated. Avoid agents with significant potential for nephrotoxicity possible including NSAIDs for analgesia, iodine contrast agents. Gadolinium is contraindicated if the GFR is below 30. (2) Hypernatremia Plan: Secondary to significant free water deficit. (3) CKD (chronic kidney disease) stage 3, GFR 30-59 ml/min Plan: Most likely related to nephrosclerosis of hypertension and aging. (4) HTN (hypertension) Candido Harris MD Jul 15, 2016 19:23
[2016-07-15] MEDS ORDERED: POTASSIUM CHLORIDE INJ 20 MEQ in DEXTROSE 5% IN WATE 1000ML INJ 1,000 ML IV SCH ×2 (19:30)
[2016-07-15] MEDS: D5W + KCL 20 MEQ INJ 1,000 ML IV SCH (21:00)
[2016-07-16] VITALS (8 sets, daily range): BP systolic 127–174; BP diastolic 78–96; PULSE 86–100; RESP 18–22; TEMP 96–97.7; O2SAT 91–96
[2016-07-16 07:22] LABS: HEMATOCRIT 27.2 % (39.0-51.0); MEAN CELL VOLUME 78.4 FL (80.0-100.0); MEAN CORPUSCULAR HEMOGLOBIN 25.1 PG (27.0-34.0); PLATELET COUNT 222 TH/MM3 (150-450); RED BLOOD COUNT 3.47 MIL/MM3 (4.50-5.90); REVIEW FLAG FINAL; WHITE BLOOD COUNT 8.5 TH/MM3 (4.0-11.0)
[2016-07-16 07:32] LABS: BICARBONATE 29.8 MEQ/L (21.0-32.0); POTASSIUM 3.3 MEQ/L (3.5-5.1)
[2016-07-16] MEDS: PANTOPRAZOLE INJ 80 MG in SODIUM CHLORIDE 0.9% INJ 100 ML IV SCH (07:58)
[2016-07-16] MEDS: D5W + KCL 20 MEQ INJ 1,000 ML IV SCH ×2 (07:58→20:29)
[2016-07-16] MEDS: SODIUM CHLORIDE 0.9% FLUSH 10 ML FLUSH IV FLUSH SCH ×2 (07:58→20:28)
--- NOTE | 2016-07-16 10:26 | HHI.FPPN ---
Subjective Remarks ALERT AGITATED D/W RN Objective Vitals Vital Signs Date Time Temp Pulse Resp B/P Pulse Ox O2 Delivery O2 Flow Rate FiO2 07/16/16 10:06 86 07/16/16 10:00 97.3 100 18 127/78 92 07/16/16 04:52 96.9 89 22 154/91 92 07/16/16 00:11 97.7 92 18 174/87 93 07/15/16 20:56 96.3 88 20 161/68 97 07/15/16 20:00 92 07/15/16 17:00 95.3 96 20 135/97 95 07/15/16 15:58 91 18 156/89 96 07/15/16 15:53 88 18 135/77 96 07/15/16 15:45 98.1 96 18 117/69 96 07/15/16 12:00 97.1 97 20 137/83 95 I/O 07/15/16 07/15/16 07/15/16 07/16/16 07/16/16 07/16/16 06:59 14:59 22:59 06:59 14:59 22:59 Intake Total 2968 ml 400 ml Balance 2968 ml 400 ml Intake Oral 2160 ml IV Total 208 ml 400 ml Packed Cells 600 ml Bladder Scan Volume Amount 123 ml # Voids 4 1 4 # Bowel Movements 4 2 Result Diagram: 07/16/16 0600 07/16/16 0600 Objective Remarks GENERAL: SKIN: Warm and dry. large buttock hematoma, stasis keratosis BLE's HEAD: Atraumatic. Normocephalic. EYES: Pupils equal and round. No scleral icterus. No injection or drainage. ENT: No nasal bleeding or discharge. Mucous membranes pink and moist. NECK: Trachea midline. No JVD. CARDIOVASCULAR: Regular rate and rhythm. RESPIRATORY: No accessory muscle use. Clear to auscultation. Breath sounds equal bilaterally. GASTROINTESTINAL: Abdomen soft, non-tender, nondistended. Hepatic and splenic margins not palpable. MUSCULOSKELETAL: Extremities without clubbing, cyanosis, or edema. No obvious deformities. NEUROLOGICAL: Awake and alert. No obvious cranial nerve deficits. Motor grossly within normal limits. 2 out of 5 muscle strength in the arms and legs. Normal speech. PSYCHIATRIC: Appropriate mood and affect; insight and judgment normal. A/P Assessment and Plan GIB ACUTE BLOOD LOSS ANEMIA LARGE BUTTOCK HEMATOMA WITH BLEEDING AFIB ON ELIQUIS HYPERNATREMIA HERBERTH URINARY OBSTRUCTION OF RENAL US HYPOKALEMIA DEHYDRATION CHRONIC EDEMA ELEPHANTIASIS W STASIS CHANGES HTN CAD PLAN: IVF REPLACE K IV PROTONIX GTT PLACE FALL PSA CHECK GI CONSULT NEPHRO CONSULT UROLOGY CONSULT WOUND CONSULT Berto Perrin MD Jul 16, 2016 10:26
--- NOTE | 2016-07-16 16:46 | HHI.GIFU ---
Subjective Remarks Resting in bed. No active bleeding. Tolerating diet. No n/v. No abdominal pain. (YuanSuzette Schaffer GRACIA) Objective Vitals I&O Vital Signs Date Time Temp Pulse Resp B/P Pulse Ox O2 Delivery O2 Flow Rate FiO2 07/16/16 14:24 162/80 07/16/16 14:11 96.0 93 18 172/85 91 07/16/16 10:06 86 07/16/16 10:00 97.3 100 18 127/78 92 07/16/16 04:52 96.9 89 22 154/91 92 07/16/16 00:11 97.7 92 18 174/87 93 07/15/16 20:56 96.3 88 20 161/68 97 07/15/16 20:00 92 07/15/16 17:00 95.3 96 20 135/97 95 I/O 07/15/16 07/15/16 07/15/16 07/16/16 07/16/16 07/16/16 07:00 15:00 23:00 07:00 15:00 23:00 Intake Total 2968 ml 400 ml Balance 2968 ml 400 ml Intake Oral 2160 ml IV Total 208 ml 400 ml Packed Cells 600 ml Bladder Scan Volume Amount 123 ml # Voids 4 1 4 1 # Bowel Movements 4 2 Laboratory Laboratory Tests Test 07/16/16 06:00 White Blood Count 8.5 Red Blood Count 3.47 Hemoglobin 8.7 Hematocrit 27.2 Mean Corpuscular Volume 78.4 Mean Corpuscular Hemoglobin 25.1 Mean Corpuscular Hemoglobin 32.0 Concent Red Cell Distribution Width 18.0 Platelet Count 222 Mean Platelet Volume 7.3 Sodium Level 150 Potassium Level 3.3 Chloride Level 115 Carbon Dioxide Level 29.8 Anion Gap 5 Blood Urea Nitrogen 40 Creatinine 2.13 Estimat Glomerular Filtration 29 Rate Random Glucose 99 Calcium Level 8.1 Phosphorus Level 3.2 Albumin 1.9 25-Hydroxy Vitamin D Total 36.3 Parathyroid Hormone (Intact) 124.0 Imaging Last Impressions Renal Ultrasound 07/14/16 0000 Signed Impressions: Service Date/Time: Thursday, July 14, 2016 16:34 - CONCLUSION: Mild to moderate prominence of the collecting system bilaterally. I do not see dilated ureter. Héctor Machado MD FACR Physical Exam HEENT: Normocephalic; atraumatic; no jaundice. CHEST: CTA, diminished CARDIAC: RRR ABDOMEN: Soft, obese, nondistended, nontender; no hepatosplenomegaly; bowel sounds are present in all four quadrants. EXTREMITIES: BLE edema. SDC TEACHER: No focal deficits; alert and oriented times three. (Suzette Bolden) Assessment and Plan Plan ASSESSMENT: - Anemia. Family reports generalized weakness x 2 weeks, progressively worsening. No obvious active bleeding. HH of 7.6/25.8 on admission. S/P 2 units of PRBC and this came up to 8.5/27.5. He has a decubitus ulcer and reports that this bleeds from time to time, but he has not seen any blood in his stool. He denies any nausea, vomiting, abdominal pain. He does report that he has been having some loose stools, but his reports that these have been brown. He denies any hx of PUD. S /P EGD/Colonoscopy (07/16/16)-----> 1. There was erythematous gastritis in the gastric antrum; multiple biopsies were performed 2. Normal endoscopy otherwise 3. Retroflexed views revealed no abnormalities. 1. Two large pedunculated polyps were found in the distal transverse colon; Adenomatous; polypectomy was performed using snare cautery 2. Moderate diverticulosis was noted throughout the entire examined colon 3. Medium sized abnormal mucosa was found in the rectum; The mucosa was erythematous, friable and nodular; multiple biopsies were performed 4. The colon mucosa was otherwise normal 5. Retroflexed views revealed no abnormalities 6. Revealed no abnormalities of the rectum 7. Early decubitus ulcer noted in the coccyx area. Pathology pending. - Gastritis. PPI - Rectal mucosa was erythematous, friable and nodular on colonoscopy. Multiple biopsies obtained. Pathology pending. Of note, patient does have a hx of prostate cancer and required radiation. - Afib, on Eliquis at home. - Large buttock hematoma/ulcer. Per primary - HERBERTH with electrolyte abnormalities, per primary - HTN, CAD per primary PLAN: - ARABELLA - D/C Protonix gtt - Protonix 40mg po daily - PPI - Monitor HH - Transfuse as necessary - Supportive care - Further recommendations to follow based on results of above - PT seen and examined by Dr. Vieyra and myself and this note is written on his behalf (Suzette Bolden) Physician Comments patient was seen and examined agree with above continue present supportive care monitor labs Await pathology (Hans Vieyra MD) Suzette Bolden Jul 16, 2016 16:46 Hans Vieyra MD Jul 16, 2016 18:40
--- NOTE | 2016-07-16 18:30 | HHI.NPPN ---
Subjective History of Present Illness This patient is a 89-year-old male with a history of hypertension, diabetes mellitus as well as atrial fibrillation presenting with fatigue and noted to be profoundly anemic on presentation. Patient now status post upper endoscopy and colonoscopy revealing gastritis as well as colonic polyps. Presentation patient had evidence of hypernatremia with a sodium of 146 and a creatinine of 2.43. Baseline creatinine level based on preadmission records appears to be about 1.2 with an estimated GFR of 57. Patient denies using NSAIDs prior to admission for analgesia. No vomiting or diarrhea. Interval History Pt feeling well today. Is quite conversive and joking. present in room ( Lizeth Ng) Objective Data Data 07/15/16 07/16/16 19:00 07:00 Intake Total 400 ml Balance 400 ml IV Total 400 ml # Voids 1 4 # Bowel Movements 2 Vital Signs Date Time Temp Pulse Resp B/P Pulse Ox O2 Delivery O2 Flow Rate FiO2 07/16/16 18:02 96.8 90 18 154/96 94 07/16/16 14:24 162/80 07/16/16 14:11 96.0 93 18 172/85 91 07/16/16 10:06 86 07/16/16 10:00 97.3 100 18 127/78 92 07/16/16 04:52 96.9 89 22 154/91 92 07/16/16 00:11 97.7 92 18 174/87 93 07/15/16 20:56 96.3 88 20 161/68 97 07/15/16 20:00 92 (Lizeth Ng) -: 07/16/16 0600 07/16/16 0600 Medication Review Current Medications Medications (Trade) Dose Ordered Sig/Constance Route Start Time Stop Time Status Last Admin (NS Flush) 2 ml UNSCH PRN IV FLUSH 07/14/16 16:15 (NS Flush) 2 ml BID IV FLUSH 07/14/16 21:00 07/16/16 07:58 (Tylenol) 650 mg Q4H PRN PO 07/14/16 16:15 (Zofran Inj) 4 mg Q6H PRN IVP 07/14/16 16:15 (Milk Of Magnesia Liq) 30 ml Q12H PRN PO 07/14/16 16:15 (Narcan Inj) 0.4 mg UNSCH PRN IV 07/14/16 16:15 Clonidine 0.1 mg 0.1 mg Q6H PRN PO 07/14/16 16:30 (D5W + KCl 20 Meq Inj) 1,000 ml @ 80 mls/hr [id number] IV 07/15/16 21:00 07/16/16 07:58 (Protonix) 40 mg DAILY PO 07/17/16 09:00 (Lizeth Ng) Physical Exam General Appearance: No Acute Distress, Comfortable (Lizeth gN) Pulmonary Resp Exam: Clear Bilaterally, Breath Sounds Equal (Lizeth Ng) Cardiology CV Exam: Irregular (Lizeth Ng) Gastrointestinal/Abdomen GI Exam: Soft, Non-Tender (iLzeth Ng) Extremeties Extremities Exam: Trace Edema Extremeties Remarks BLE up to knees (Lizeth Ng) Neurologic Neuro Exam: Alert, Awake, Oriented (Lizeth Ng) Psychiatric Psych Exam: Appropriate Responses (Lizeth Ng) Assessment/Plan Problem List: (1) Acute kidney insufficiency Plan: Secondary to intravascular volume depletion from poor fluid intake prior to admission as well as recent GI bleed. Continue on D5W IVF. Will order bladder US with PVR to ensure no underlying bladder outlet obstruction. History not suggestive of such, but has dilation noted in collecting system bilateral kidneys as detected on renal US Medications should be adjusted for the patient's estimated GFR if clinically indicated. Avoid agents with significant potential for nephrotoxicity possible including NSAIDs for analgesia, iodine contrast agents. Gadolinium is contraindicated if the GFR is below 30. (2) CKD (chronic kidney disease) stage 3, GFR 30-59 ml/min Plan: Most likely related to nephrosclerosis of hypertension and aging. (3) Hypernatremia Plan: Secondary to significant free water deficit. Continue on D5W. Encouraged po intake of free water and protein (4) HTN (hypertension) Plan: Add on Amlodipine 5mg po QD (Lizeth Ng) Plan The exam, history, and the medical decision-making described in the above note were completed with the assistance of the PAOzzy. I reviewed and agree with the findings presented. (Candido Harris MD) Lizeth Ng Jul 16, 2016 18:30 Candido Harris MD Jul 16, 2016 19:07
[2016-07-16] MEDS: amLODIPine BESYLATE 5 MG TAB PO SCH (18:46)
[2016-07-16 22:58] LABS: KAPPA LAMBDA RATIO 1.72 (1.57-3.93); TOTAL PROTEIN SPE 6.2 GM/DL (6.0-7.6)
[2016-07-17] VITALS: BP 171/93; PULSE 88; RESP 18; TEMP 98.1; O2SAT 95
--- NOTE | 2016-07-17 00:21 | RADRPT ---
EXAM DATE/TIME: 07/16/2016 21:32 [place] COMPARISON: No previous studies available for comparison. INDICATIONS : Increased BUN/creatinine. Post volume bladder residual. MEDICAL HISTORY : Hypertension. Hypercholesterolemia. Afib. Joint pain. Anticoagulant therapy. Altered mental status. Type 2 pressure ulcer. SURGICAL HISTORY : None. ENCOUNTER: Subsequent ACUITY: 1 day PAIN SCORE: 0/10 LOCATION: Bilateral pelvis MEASUREMENTS: FINDINGS: Kidneys are recently evaluated with ultrasound on July 14. Exam was performed to assess post void re sidual. Prevoid bladder volume was 488 mL and postvoid volume was 414 mm. CONCLUSION: 1. Large post void bladder volume of 414 mL. Yomi Garvey MD on July 17, 2016 at 0:16 Board Certified Radiologist. This report was verified electronically.
[2016-07-17] MEDS: D5W + KCL 20 MEQ INJ 1,000 ML IV SCH ×2 (01:37→19:53)
[2016-07-17 04:00] VITALS: BP 155/77; PULSE 93; RESP 20; TEMP 97.3; O2SAT 94
[2016-07-17 08:00] VITALS: BP 169/99; PULSE 98; RESP 18; TEMP 97; O2SAT 93
[2016-07-17 08:11] LABS: BICARBONATE 29.8 MEQ/L (21.0-32.0); POTASSIUM 3.4 MEQ/L (3.5-5.1)
[2016-07-17 08:12] LABS: AUTOMATED NEUTROPHIL # 6.9 TH/MM3 (1.8-7.7); BASOPHIL % 0.5 % (0.0-2.0); EOSINOPHIL # 0.2 TH/MM3 (0-0.4); EOSINOPHIL % 2.5 % (0.0-4.0); HEMATOCRIT 29.8 % (39.0-51.0); LYMPH % 10.4 % (9.0-44.0); LYMPHOCYTE # 0.9 TH/MM3 (1.0-4.8); MEAN CELL VOLUME 79.3 FL (80.0-100.0); MEAN CORPUSCULAR HEMOGLOBIN 24.8 PG (27.0-34.0); MEAN CORPUSCULAR HGB CONC 31.3 % (32.0-36.0); NEUT % 80.6 % (16.0-70.0); PLATELET COUNT 240 TH/MM3 (150-450); RED BLOOD COUNT 3.75 MIL/MM3 (4.50-5.90); RED CELL DISTRIBUTION WIDTH 17.9 % (11.6-17.2); WHITE BLOOD COUNT 8.5 TH/MM3 (4.0-11.0)
[2016-07-17 08:25] LABS: HEMO FLAGS AUTO DIFF
[2016-07-17] MEDS: amLODIPine BESYLATE 5 MG TAB PO SCH (08:50)
[2016-07-17] MEDS: PANTOPRAZOLE SOD 40 MG DELAYED RELEASE TAB PO SCH (08:50)
[2016-07-17 09:28] LABS: ACANTHOCYTES OCC (NORMAL); KERATOCYTES OCC (NORMAL); OVALOCYTES 1+ (NORMAL); PLATELET ESTIMATE SMEAR NORMAL (NORMAL); PLATELET MORPHOLOGY ENLARGED (NORMAL); SCAN/DIFF AUTO DIFF CONFIRMED
--- NOTE | 2016-07-17 09:31 | HHI.NPPN ---
Subjective History of Present Illness This patient is a 89-year-old male with a history of hypertension, diabetes mellitus as well as atrial fibrillation presenting with fatigue and noted to be profoundly anemic on presentation. Patient now status post upper endoscopy and colonoscopy revealing gastritis as well as colonic polyps. Presentation patient had evidence of hypernatremia with a sodium of 146 and a creatinine of 2.43. Baseline creatinine level based on preadmission records appears to be about 1.2 with an estimated GFR of 57. Patient denies using NSAIDs prior to admission for analgesia. No vomiting or diarrhea. Interval History Pt feeling OK today. No new complaints (Lizeth Ng) Objective Data Data 07/16/16 07/17/16 19:00 07:00 Intake Total 540 ml Balance 540 ml Intake Oral 540 ml Bladder Scan Volume Amount 123 ml # Voids 2 6 # Bowel Movements 0 Vital Signs Date Time Temp Pulse Resp B/P Pulse Ox O2 Delivery O2 Flow Rate FiO2 07/17/16 08:00 97.0 98 18 169/99 93 07/17/16 04:00 97.3 93 20 155/77 94 07/17/16 00:00 98.1 88 18 171/93 95 07/16/16 20:00 97.5 91 20 155/87 96 07/16/16 20:00 90 07/16/16 18:02 96.8 90 18 154/96 94 07/16/16 14:24 162/80 07/16/16 14:11 96.0 93 18 172/85 91 07/16/16 10:06 86 07/16/16 10:00 97.3 100 18 127/78 92 (Lizeth Ng) -: 07/17/16 0647 07/17/16 0647 Medication Review Current Medications Medications (Trade) Dose Ordered Sig/Constance Route Start Time Stop Time Status Last Admin (NS Flush) 2 ml UNSCH PRN IV FLUSH 07/14/16 16:15 (NS Flush) 2 ml BID IV FLUSH 07/14/16 21:00 07/16/16 07:58 (Tylenol) 650 mg Q4H PRN PO 07/14/16 16:15 (Zofran Inj) 4 mg Q6H PRN IVP 07/14/16 16:15 (Milk Of Magnesia Liq) 30 ml Q12H PRN PO 07/14/16 16:15 (Narcan Inj) 0.4 mg UNSCH PRN IV 07/14/16 16:15 Clonidine 0.1 mg 0.1 mg Q6H PRN PO 07/14/16 16:30 (D5W + KCl 20 Meq Inj) 1,000 ml @ 80 mls/hr [id number] IV 07/15/16 21:00 07/17/16 01:37 (Protonix) 40 mg DAILY PO 07/17/16 09:00 07/17/16 08:50 (Norvasc) 5 mg DAILY PO 07/16/16 18:30 07/17/16 08:50 (Lizeth Ng) Physical Exam General Appearance: No Acute Distress, Comfortable (Lizeth Ng) Pulmonary Resp Exam: Clear Bilaterally, Breath Sounds Equal (Lizeth Ng) Cardiology CV Exam: Irregular (Lizeth Ng) Gastrointestinal/Abdomen GI Exam: Soft, Non-Tender (Lizeth Ng) Extremeties Extremities Exam: Trace Edema (Lizeth Ng) Neurologic Neuro Exam: Alert, Awake, Oriented (Lizeth Ng) Psychiatric Psych Exam: Appropriate Responses (Lizeth Ng) Assessment/Plan Problem List: (1) Acute kidney insufficiency Plan: Secondary to intravascular volume depletion from poor fluid intake prior to admission as well as recent GI bleed. Continue on D5W IVF. Large PVR. Potential JOHNSON? Discussed with the patient. In lieu of Leyva catheter, will straight cath with bladder US q8h for PVR. If improving/resolved, will monitor. If continued PVR , may need to reconsider Leyva if pt agreeable. Discussed with the patient, his , and RN. Medications should be adjusted for the patient's estimated GFR if clinically indicated. Avoid agents with significant potential for nephrotoxicity possible including NSAIDs for analgesia, iodine contrast agents. Gadolinium is contraindicated if the GFR is below 30. (2) CKD (chronic kidney disease) stage 3, GFR 30-59 ml/min Plan: Most likely related to nephrosclerosis of hypertension and aging. (3) Hypernatremia Plan: Secondary to significant free water deficit. Continue on D5W. Encouraged po intake of free water and protein (4) HTN (hypertension) Plan: Inc Amlodipine to 10mg QD (Lizeth Ng) Plan The exam, history, and the medical decision-making described in the above note were completed with the assistance of the PA-C. I reviewed and agree with the findings presented. I attest that I had a [id number] encounter with the patient on the same day, and personally performed and documented my assessment and findings in the medical record. (Candido Harris MD) Lizeth Ng Jul 17, 2016 09:31 Candido Harris MD Jul 19, 2016 15:06
[2016-07-17] MEDS ORDERED: POTASSIUM CHLORIDE 10 MEQ CONTROLLED RELEASE TAB PO ONE (09:45)
--- NOTE | 2016-07-17 11:22 | HHI.GIFU ---
Subjective Remarks Resting in bed. No complaints. No bleeding. No n/v. No abdominal pain. ( Suzette Bolden) Objective Vitals I&O Vital Signs Date Time Temp Pulse Resp B/P Pulse Ox O2 Delivery O2 Flow Rate FiO2 07/17/16 08:00 97.0 98 18 169/99 93 07/17/16 04:00 97.3 93 20 155/77 94 07/17/16 00:00 98.1 88 18 171/93 95 07/16/16 20:00 97.5 91 20 155/87 96 07/16/16 20:00 90 07/16/16 18:02 96.8 90 18 154/96 94 07/16/16 14:24 162/80 07/16/16 14:11 96.0 93 18 172/85 91 I/O 07/16/16 07/16/16 07/16/16 07/17/16 07/17/16 07/17/16 07:00 15:00 23:00 07:00 15:00 23:00 Intake Total 480 ml 60 ml Balance 480 ml 60 ml Intake Oral 480 ml 60 ml Bladder Scan Volume Amount 123 ml # Voids 4 1 4 3 # Bowel Movements 2 0 Laboratory Laboratory Tests Test 07/17/16 06:47 White Blood Count 8.5 Red Blood Count 3.75 Hemoglobin 9.3 Hematocrit 29.8 Mean Corpuscular Volume 79.3 Mean Corpuscular Hemoglobin 24.8 Mean Corpuscular Hemoglobin 31.3 Concent Red Cell Distribution Width 17.9 Platelet Count 240 Mean Platelet Volume 7.3 Neutrophils (%) (Auto) 80.6 Lymphocytes (%) (Auto) 10.4 Monocytes (%) (Auto) 6.0 Eosinophils (%) (Auto) 2.5 Basophils (%) (Auto) 0.5 Neutrophils # (Auto) 6.9 Lymphocytes # (Auto) 0.9 Monocytes # (Auto) 0.5 Eosinophils # (Auto) 0.2 Basophils # (Auto) 0.0 CBC Comment AUTO DIFF Differential Comment AUTO DIFF CONFIRMED Platelet Estimate NORMAL Platelet Morphology Comment ENLARGED Ovalocytes 1+ Acanthocytes OCC Keratocytes OCC Sodium Level 147 Potassium Level 3.4 Chloride Level 112 Carbon Dioxide Level 29.8 Anion Gap 5 Blood Urea Nitrogen 33 Creatinine 2.10 Estimat Glomerular Filtration 30 Rate Random Glucose 119 Calcium Level 8.5 Imaging Last Impressions Renal Ultrasound 07/16/16 0000 Signed Impressions: Service Date/Time: Saturday, July 16, 2016 21:32 - CONCLUSION: 1. Large post void bladder volume of 414 mL. Yomi Garvey MD Physical Exam HEENT: Normocephalic; atraumatic; no jaundice. CHEST: CTA, diminished CARDIAC: RRR ABDOMEN: Soft, obese, nondistended, nontender; no hepatosplenomegaly; bowel sounds are present in all four quadrants. EXTREMITIES: BLE edema. LEAF TIER: No focal deficits; lethargic and oriented times three. (YuanSuzette Schaffer GRACIA) Assessment and Plan Plan ASSESSMENT: - Anemia. Family reports generalized weakness x 2 weeks, progressively worsening. No obvious active bleeding. HH of 7.6/25.8 on admission. S/P 2 units of PRBC and this came up to 8.5/27.5. He has a decubitus ulcer and reports that this bleeds from time to time, but he has not seen any blood in his stool. He denies any nausea, vomiting, abdominal pain. He does report that he has been having some loose stools, but his reports that these have been brown. He denies any hx of PUD. S /P EGD/Colonoscopy (07/16/16)-----> 1. There was erythematous gastritis in the gastric antrum; multiple biopsies were performed 2. Normal endoscopy otherwise 3. Retroflexed views revealed no abnormalities. 1. Two large pedunculated polyps were found in the distal transverse colon; Adenomatous; polypectomy was performed using snare cautery 2. Moderate diverticulosis was noted throughout the entire examined colon 3. Medium sized abnormal mucosa was found in the rectum; The mucosa was erythematous, friable and nodular; multiple biopsies were performed 4. The colon mucosa was otherwise normal 5. Retroflexed views revealed no abnormalities 6. Revealed no abnormalities of the rectum 7. Early decubitus ulcer noted in the coccyx area. Pathology still pending. HH stable 9.3/29.8. - Gastritis. Protonix - Rectal mucosa was erythematous, friable and nodular on colonoscopy. Multiple biopsies obtained. Pathology pending. Of note, patient does have a hx of prostate cancer and required radiation. - Afib, on Eliquis at home. - Large buttock hematoma/ulcer. Per primary - HERBERTH with electrolyte abnormalities, per primary - HTN, CAD per primary PLAN: - ARABELLA - Await pathology - Protonix 40mg po daily - Monitor HH - Transfuse as necessary - Supportive care - Further recommendations to follow based on results of above - PT seen and examined by Dr. Vieyra and myself and this note is written on his behalf (Suzette Bolden) Physician Comments Patient seen and examined Agree with above Continue with current supportive care Monitor labs Pathology is come back showing inflammation in the stomach but no bacteria benign colon polyp and the rectal lesion is consistent with a solitary rectal ulcer most likely secondary to straining and/or constipation and/or prolapse Recommend high fiber diet and some laxatives such as MiraLAX or milk of magnesia Continue PPI There has been no further bleeding and as such patient may be discharged from a GI standpoint We will sign off (Hans Vieyra MD) Suzette Bolden Jul 17, 2016 11:22 Hans Vieyra MD Jul 17, 2016 19:04
[2016-07-17 12:47] VITALS: BP 152/85; PULSE 89; RESP 18; TEMP 97.3; O2SAT 94
--- NOTE | 2016-07-17 15:45 | HHI.FPPN ---
Subjective Remarks CONF W PT AND DGTR PT C/O WEAKNESS REQS DC [facility] WANTS TO GO TO [facility] D/W RN Objective Vitals Vital Signs Date Time Temp Pulse Resp B/P Pulse Ox O2 Delivery O2 Flow Rate FiO2 07/17/16 12:47 97.3 89 18 152/85 94 07/17/16 08:00 97.0 98 18 169/99 93 07/17/16 04:00 97.3 93 20 155/77 94 07/17/16 00:00 98.1 88 18 171/93 95 07/16/16 20:00 97.5 91 20 155/87 96 07/16/16 20:00 90 07/16/16 18:02 96.8 90 18 154/96 94 I/O 07/16/16 07/16/16 07/16/16 07/17/16 07/17/16 07/17/16 07:00 15:00 23:00 07:00 15:00 23:00 Intake Total 480 ml 60 ml Balance 480 ml 60 ml Intake Oral 480 ml 60 ml Bladder Scan Volume Amount 123 ml # Voids 4 1 4 3 # Bowel Movements 2 0 Result Diagram: 07/17/16 0647 07/17/16 0647 Objective Remarks GENERAL: SKIN: Warm and dry. large buttock hematoma, stasis keratosis BLE's HEAD: Atraumatic. Normocephalic. EYES: Pupils equal and round. No scleral icterus. No injection or drainage. ENT: No nasal bleeding or discharge. Mucous membranes pink and moist. NECK: Trachea midline. No JVD. CARDIOVASCULAR: Regular rate and rhythm. RESPIRATORY: No accessory muscle use. Clear to auscultation. Breath sounds equal bilaterally. GASTROINTESTINAL: Abdomen soft, non-tender, nondistended. Hepatic and splenic margins not palpable. MUSCULOSKELETAL: Extremities without clubbing, cyanosis, or edema. No obvious deformities. NEUROLOGICAL: Awake and alert. No obvious cranial nerve deficits. Motor grossly within normal limits. 2 out of 5 muscle strength in the arms and legs. Normal speech. PSYCHIATRIC: Appropriate mood and affect; insight and judgment normal. Medications and IVs Current Medications Medications (Trade) Dose Ordered Sig/Constance Route Start Time Stop Time Status Last Admin (NS Flush) 2 ml UNSCH PRN IV FLUSH 07/14/16 16:15 (NS Flush) 2 ml BID IV FLUSH 07/14/16 21:00 07/16/16 07:58 (Tylenol) 650 mg Q4H PRN PO 07/14/16 16:15 (Zofran Inj) 4 mg Q6H PRN IVP 07/14/16 16:15 (Milk Of Magnesia Liq) 30 ml Q12H PRN PO 07/14/16 16:15 (Narcan Inj) 0.4 mg UNSCH PRN IV 07/14/16 16:15 Clonidine 0.1 mg 0.1 mg Q6H PRN PO 07/14/16 16:30 (D5W + KCl 20 Meq Inj) 1,000 ml @ 80 mls/hr [id number] IV 07/15/16 21:00 07/17/16 01:37 (Protonix) 40 mg DAILY PO 07/17/16 09:00 07/17/16 08:50 (Norvasc) 10 mg DAILY PO 07/18/16 09:00 A/P Assessment and Plan GIB ACUTE BLOOD LOSS ANEMIA GASTRITIS RADIATION PROCTITIS S/P PROSTATE CA RT LARGE BUTTOCK HEMATOMA WITH BLEEDING DECUB ULCER AFIB ON ELIQUIS HYPERNATREMIA HERBERTH CKD 3 URINARY OBSTRUCTION OF RENAL US HYPOKALEMIA DEHYDRATION CHRONIC EDEMA ELEPHANTIASIS W STASIS CHANGES HTN CAD PLAN: IVF W K REPLACE K PROTONIX ST CATH PRN GI CONSULT NEPHRO CONSULT UROLOGY CONSULT WOUND CONSULT AM LABS WANTS TO GO TO [facility] MD Jul 17, 2016 15:44
[2016-07-17 16:34] VITALS: BP 171/97; PULSE 86; RESP 18; TEMP 98.5; O2SAT 95
[2016-07-17] MEDS: cloNIDine HCL 0.1 MG TAB PO PRN (19:20)
[2016-07-17] MEDS: SODIUM CHLORIDE 0.9% FLUSH 10 ML FLUSH IV FLUSH SCH (19:52)
[2016-07-17 20:00] VITALS: BP 174/77; PULSE 85; RESP 22; TEMP 97.2; O2SAT 95
[2016-07-18] VITALS (8 sets, daily range): BP systolic 137–187; BP diastolic 76–92; PULSE 72–94; RESP 18–20; TEMP 96.5–97.8; O2SAT 92–96
[2016-07-18] MEDS: cloNIDine HCL 0.1 MG TAB PO PRN (05:01)
[2016-07-18 06:51] LABS: AUTOMATED NEUTROPHIL # 6.5 TH/MM3 (1.8-7.7); BASOPHIL % 0.6 % (0.0-2.0); EOSINOPHIL # 0.3 TH/MM3 (0-0.4); EOSINOPHIL % 3.5 % (0.0-4.0); HEMATOCRIT 28.5 % (39.0-51.0); HEMO FLAGS DIFF FINAL; LYMPH % 9.9 % (9.0-44.0); LYMPHOCYTE # 0.8 TH/MM3 (1.0-4.8); MEAN CELL VOLUME 79.3 FL (80.0-100.0); MEAN CORPUSCULAR HEMOGLOBIN 25.4 PG (27.0-34.0); MONO % 6.5 % (0.0-8.0); NEUT % 79.5 % (16.0-70.0); PLATELET COUNT 226 TH/MM3 (150-450); RED CELL DISTRIBUTION WIDTH 18.1 % (11.6-17.2); WHITE BLOOD COUNT 8.2 TH/MM3 (4.0-11.0)
[2016-07-18 06:56] LABS: BICARBONATE 30.4 MEQ/L (21.0-32.0); POTASSIUM 3.6 MEQ/L (3.5-5.1)
[2016-07-18] MEDS: PANTOPRAZOLE SOD 40 MG DELAYED RELEASE TAB PO SCH (09:39)
[2016-07-18] MEDS: amLODIPine BESYLATE 5 MG TAB PO SCH (09:41)
[2016-07-18] MEDS: D5W + KCL 20 MEQ INJ 1,000 ML IV SCH ×2 (09:42→23:30)
--- NOTE | 2016-07-18 11:01 | HHI.FPPN ---
Subjective Remarks AGITATED D/W RN LABS REVIEWED Objective Vitals Vital Signs Date Time Temp Pulse Resp B/P Pulse Ox O2 Delivery O2 Flow Rate FiO2 07/18/16 08:00 96.5 94 18 187/88 96 07/18/16 07:00 72 07/18/16 04:00 97.7 90 20 173/92 92 07/18/16 00:00 96.6 89 20 152/78 94 07/17/16 20:00 97.2 85 22 174/77 95 07/17/16 16:34 98.5 86 18 171/97 95 07/17/16 12:47 97.3 89 18 152/85 94 I/O 07/17/16 07/17/16 07/17/16 07/18/16 07/18/16 07/18/16 07:00 15:00 23:00 07:00 15:00 23:00 Intake Total 60 ml 600 ml 450 ml 900 ml Balance 60 ml 600 ml 450 ml 900 ml Intake Oral 60 ml 600 ml 450 ml 900 ml Bladder Scan Volume Amount 58 ml 76 ml 62 ml # Voids 3 3 1 5 # Bowel Movements 0 Result Diagram: 07/18/1652807/18/16528 Objective Remarks GENERAL: SKIN: Warm and dry. large buttock hematoma, stasis keratosis BLE's HEAD: Atraumatic. Normocephalic. EYES: Pupils equal and round. No scleral icterus. No injection or drainage. ENT: No nasal bleeding or discharge. Mucous membranes pink and moist. NECK: Trachea midline. No JVD. CARDIOVASCULAR: Regular rate and rhythm. RESPIRATORY: No accessory muscle use. Clear to auscultation. Breath sounds equal bilaterally. GASTROINTESTINAL: Abdomen soft, non-tender, nondistended. Hepatic and splenic margins not palpable. MUSCULOSKELETAL: Extremities without clubbing, cyanosis, or edema. No obvious deformities. NEUROLOGICAL: Awake and alert. No obvious cranial nerve deficits. Motor grossly within normal limits. 2 out of 5 muscle strength in the arms and legs. Normal speech. PSYCHIATRIC: Appropriate mood and affect; insight and judgment normal. Medications and IVs Current Medications Medications (Trade) Dose Ordered Sig/Constance Route Start Time Stop Time Status Last Admin (NS Flush) 2 ml UNSCH PRN IV FLUSH 07/14/16 16:15 (NS Flush) 2 ml BID IV FLUSH 07/14/16 21:00 07/16/16 07:58 (Tylenol) 650 mg Q4H PRN PO 07/14/16 16:15 (Zofran Inj) 4 mg Q6H PRN IVP 07/14/16 16:15 (Milk Of Magnesia Liq) 30 ml Q12H PRN PO 07/14/16 16:15 (Narcan Inj) 0.4 mg UNSCH PRN IV 07/14/16 16:15 Clonidine 0.1 mg 0.1 mg Q6H PRN PO 07/14/16 16:30 07/18/16 05:01 (D5W + KCl 20 Meq Inj) 1,000 ml @ 80 mls/hr [id number] IV 07/15/16 21:00 07/18/16 09:42 (Protonix) 40 mg DAILY PO 07/17/16 09:00 07/18/16 09:39 (Norvasc) 10 mg DAILY PO 07/18/16 09:00 07/18/16 09:41 A/P Assessment and Plan GIB ACUTE BLOOD LOSS ANEMIA GASTRITIS RADIATION PROCTITIS S/P PROSTATE CA RT LARGE BUTTOCK HEMATOMA WITH BLEEDING DECUB ULCER AFIB ON ELIQUIS HYPERNATREMIA HERBERTH CKD 3 URINARY OBSTRUCTION OF RENAL US HYPOKALEMIA DEHYDRATION CHRONIC EDEMA ELEPHANTIASIS W STASIS CHANGES HTN CAD PLAN: IVF W K REPLACE K PROTONIX ST CATH PRN GI CONSULT NEPHRO CONSULT UROLOGY CONSULT WOUND CONSULT AM LABS WANTS TO GO TO [facility] MD Jul 18, 2016 11:01
--- NOTE | 2016-07-18 15:48 | HHI.NPPN ---
Subjective History of Present Illness This patient is a 89-year-old male with a history of hypertension, diabetes mellitus as well as atrial fibrillation presenting with fatigue and noted to be profoundly anemic on presentation. Patient now status post upper endoscopy and colonoscopy revealing gastritis as well as colonic polyps. Presentation patient had evidence of hypernatremia with a sodium of 146 and a creatinine of 2.43. Baseline creatinine level based on preadmission records appears to be about 1.2 with an estimated GFR of 57. Patient denies using NSAIDs prior to admission for analgesia. No vomiting or diarrhea. Interval History Pt doing well. No straight cath had to be done as bladder scans minimal. Continues to denies urinary issues. D/C plans underway for [facility]. (Lizeth Ng) Objective Data Data 07/17/16 07/18/16 19:00 07:00 Intake Total 600 ml 1350 ml Balance 600 ml 1350 ml Intake Oral 600 ml 1350 ml Bladder Scan Volume Amount 58 ml 76 ml 62 ml # Voids 3 6 Vital Signs Date Time Temp Pulse Resp B/P Pulse Ox O2 Delivery O2 Flow Rate FiO2 07/18/16 12:31 97.8 78 18 164/78 96 07/18/16 08:00 96.5 94 18 187/88 96 07/18/16 07:00 72 07/18/16 04:00 97.7 90 20 173/92 92 07/18/16 00:00 96.6 89 20 152/78 94 07/17/16 20:00 97.2 85 22 174/77 95 07/17/16 16:34 98.5 86 18 171/97 95 (Lizeth Ng) -: 07/18/16 0529 07/18/16 0529 Medication Review Current Medications Medications (Trade) Dose Ordered Sig/Constance Route Start Time Stop Time Status Last Admin (NS Flush) 2 ml UNSCH PRN IV FLUSH 07/14/16 16:15 (NS Flush) 2 ml BID IV FLUSH 07/14/16 21:00 07/16/16 07:58 (Tylenol) 650 mg Q4H PRN PO 07/14/16 16:15 (Zofran Inj) 4 mg Q6H PRN IVP 07/14/16 16:15 (Milk Of Magnesia Liq) 30 ml Q12H PRN PO 07/14/16 16:15 (Narcan Inj) 0.4 mg UNSCH PRN IV 07/14/16 16:15 Clonidine 0.1 mg 0.1 mg Q6H PRN PO 07/14/16 16:30 07/18/16 05:01 (D5W + KCl 20 Meq Inj) 1,000 ml @ 80 mls/hr [id number] IV 07/15/16 21:00 07/18/16 09:42 (Protonix) 40 mg DAILY PO 07/17/16 09:00 07/18/16 09:39 (Norvasc) 10 mg DAILY PO 07/18/16 09:00 07/18/16 09:41 (Lizeth Ng) Physical Exam General Appearance: No Acute Distress, Comfortable (Lizeth Ng) Pulmonary Resp Exam: Clear Bilaterally, Breath Sounds Equal (Lizeth Ng) Cardiology CV Exam: Irregular (Lizeth Ng) Gastrointestinal/Abdomen GI Exam: Soft, Non-Tender (Lizeth Ng) Extremeties Extremities Exam: Trace Edema (Lizeth Ng) Neurologic Neuro Exam: Alert, Awake, Oriented (Lizeth Ng) Psychiatric Psych Exam: Appropriate Responses (Lizeth Ng) Assessment/Plan Problem List: (1) Acute kidney insufficiency Plan: Secondary to intravascular volume depletion from poor fluid intake prior to admission as well as recent GI bleed. Renal functions stable. This may be his new baseline. Bladder scan initially showed large PVR, but bedside bladder scans minimal requiring no cath. Advised to f/u with urology as outpatient. Medications should be adjusted for the patient's estimated GFR if clinically indicated. Avoid agents with significant potential for nephrotoxicity possible including NSAIDs for analgesia, iodine contrast agents. Gadolinium is contraindicated if the GFR is below 30. (2) CKD (chronic kidney disease) stage 3, GFR 30-59 ml/min Plan: Most likely related to nephrosclerosis of hypertension and aging. (3) Hypernatremia Plan: Secondary to significant free water deficit. Continue on D5W. Encouraged po intake of free water Would like to see improvement in hypernatremia before discharge. Will increase IVF slightly tonight and follow with labs in the AM. If Na improving, would be OK for discharge. (4) HTN (hypertension) Plan: Continue Amlodipine to 10mg QD Add Hydralazine 10mg q8h (Lizeth Ng) Plan The exam, history, and the medical decision-making described in the above note were completed with the assistance of the PAOzzy. I reviewed and agree with the findings presented. (Candido Harris MD) Lizeth Ng Jul 18, 2016 15:48 Candido Harris MD Jul 19, 2016 15:05
[2016-07-18] MEDS: SODIUM CHLORIDE 0.9% FLUSH 10 ML FLUSH IV FLUSH SCH ×2 (21:00→23:00)
[2016-07-18 21:07] LABS: ALBUMIN SPE 2.15 GM/DL (3.50-5.00); ALPHA 1 GLOBULIN 0.37 GM/DL (0.11-0.29); ALPHA 2 GLOBULIN 0.94 GM/DL (0.22-1.00); BETA GLOBULINS (SPE) 0.93 GM/DL (0.53-1.03)
[2016-07-18] MEDS: hydrALAZINE HCL 10 MG TAB PO SCH (22:10)
[2016-07-19] VITALS (9 sets, daily range): BP systolic 150–182; BP diastolic 58–88; PULSE 68–91; RESP 16–30; TEMP 96.6–97.9; O2SAT 93–96
[2016-07-19 03:53] LABS: KAPPA/LAMBDA FREE 1.88 (0.26-1.65)
[2016-07-19] MEDS: hydrALAZINE HCL 10 MG TAB PO SCH ×3 (06:25→21:37)
[2016-07-19 07:14] LABS: AUTOMATED NEUTROPHIL # 7.9 TH/MM3 (1.8-7.7); BASOPHIL # 0.1 TH/MM3 (0-0.2); BASOPHIL % 0.5 % (0.0-2.0); EOSINOPHIL # 0.2 TH/MM3 (0-0.4); EOSINOPHIL % 2.4 % (0.0-4.0); HEMATOCRIT 31.1 % (39.0-51.0); LYMPHOCYTE # 0.9 TH/MM3 (1.0-4.8); MEAN CELL VOLUME 80.7 FL (80.0-100.0); MEAN CORPUSCULAR HEMOGLOBIN 24.6 PG (27.0-34.0); MEAN CORPUSCULAR HGB CONC 30.5 % (32.0-36.0); MONO % 6.5 % (0.0-8.0); NEUT % 81.6 % (16.0-70.0); PLATELET COUNT 217 TH/MM3 (150-450); RED BLOOD COUNT 3.86 MIL/MM3 (4.50-5.90); RED CELL DISTRIBUTION WIDTH 18.2 % (11.6-17.2); WHITE BLOOD COUNT 9.7 TH/MM3 (4.0-11.0)
[2016-07-19 07:16] LABS: HEMO FLAGS AUTO DIFF
[2016-07-19 07:30] LABS: BICARBONATE 29.5 MEQ/L (21.0-32.0)
[2016-07-19] MEDS: amLODIPine BESYLATE 5 MG TAB PO SCH (08:46)
[2016-07-19] MEDS: PANTOPRAZOLE SOD 40 MG DELAYED RELEASE TAB PO SCH (08:46)
[2016-07-19] MEDS: SODIUM CHLORIDE 0.9% FLUSH 10 ML FLUSH IV FLUSH SCH ×2 (08:47→21:00)
[2016-07-19] MEDS: D5W + KCL 20 MEQ INJ 1,000 ML IV SCH ×2 (08:47→17:53)
[2016-07-19 09:39] LABS: BANDS 1 % (0-6); BASOPHILS 1 % (0-2); EOSINOPHILS 4 % (0-4); NEUTROPHIL # MANUAL DIFF 7.6 TH/MM3 (1.8-7.7); POLYS (SEG NEUTROPHILS) 77 % (16-70); WBC DIFF SAMPLE 100
[2016-07-19 09:51] LABS: OVALOCYTES 1+ (NORMAL)
[2016-07-19 09:52] LABS: PLATELET ESTIMATE SMEAR NORMAL (NORMAL); PLATELET MORPHOLOGY NORMAL (NORMAL); SCAN/DIFF FINAL DIFF MANUAL
--- NOTE | 2016-07-19 11:16 | HHI.PR ---
Subjective Remarks Laying in bed Denied complaint, afebrile overnight Sodium is 146 still on D5 water followed by nephrology Objective Vitals Vital Signs Date Time Temp Pulse Resp B/P Pulse Ox O2 Delivery O2 Flow Rate FiO2 07/19/16 08:00 97.1 68 16 160/73 96 07/19/16 07:53 91 07/19/16 04:50 150/58 07/19/16 04:00 97.8 87 18 182/81 93 07/19/16 00:00 97.7 81 30 180/79 93 07/18/16 21:00 88 07/18/16 20:00 96.6 82 18 139/82 94 07/18/16 16:29 97.7 89 18 137/76 96 07/18/16 12:31 97.8 78 18 164/78 96 I/O 07/18/16 07/18/16 07/18/16 07/19/16 07/19/16 07/19/16 07:00 15:00 23:00 07:00 15:00 23:00 Intake Total 900 ml 720 ml 480 ml 2108 ml Balance 900 ml 720 ml 480 ml 2108 ml Intake Oral 900 ml 720 ml 480 ml IV Total 2108 ml Bladder Scan Volume Amount 62 ml 25 ml # Voids 5 5 2 # Bowel Movements 1 Result Diagram: 07/19/16 0640 07/19/16 0640 Objective Remarks GENERAL: This is a well-nourished,frail elderly, well-developed patient, in no apparent distress. CARDIOVASCULAR: Regular rate and rhythm without murmurs, gallops, or rubs. RESPIRATORY: Clear to auscultation. Breath sounds equal bilaterally. No wheezes , rales, or rhonchi. GASTROINTESTINAL: Abdomen soft, non-tender, nondistended. Normal active bowel sounds MUSCULOSKELETAL: Extremities without clubbing, cyanosis, or edema. NEURO: Alert & Oriented x4 to person, place, time, situation. 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 fib HERBERTH on CKD 3 Obstructive uropathy Hyperatremia hypokalemia dehydration Chronic edema with stasis changes Hypertension History of CAD DVT prophylaxis with SCD due to bleeding Plan: Continue on D5 water with monitoring BMP Nephrology following GI consulted as well as urology Protonix and SCDs for GI and DVT prophylaxis Neelima Del Toro MD Jul 19, 2016 11:16
[2016-07-20] VITALS (7 sets, daily range): BP systolic 149–164; BP diastolic 71–82; PULSE 68–98; RESP 19–24; TEMP 97.7–99.3; O2SAT 93–96
[2016-07-20] MEDS: D5W + KCL 20 MEQ INJ 1,000 ML IV SCH ×2 (04:22→14:22)
[2016-07-20] MEDS: hydrALAZINE HCL 10 MG TAB PO SCH (05:43)
[2016-07-20] MEDS: SODIUM CHLORIDE 0.9% FLUSH 10 ML FLUSH IV FLUSH SCH ×2 (09:00→20:40)
[2016-07-20] MEDS: PANTOPRAZOLE SOD 40 MG DELAYED RELEASE TAB PO SCH (09:23)
[2016-07-20] MEDS: amLODIPine BESYLATE 5 MG TAB PO SCH (09:23)
[2016-07-20 09:38] LABS: AUTOMATED NEUTROPHIL # 7.3 TH/MM3 (1.8-7.7); BASOPHIL # 0.1 TH/MM3 (0-0.2); BASOPHIL % 0.6 % (0.0-2.0); EOSINOPHIL # 0.2 TH/MM3 (0-0.4); EOSINOPHIL % 2.2 % (0.0-4.0); HEMATOCRIT 31.4 % (39.0-51.0); LYMPH % 8.8 % (9.0-44.0); LYMPHOCYTE # 0.8 TH/MM3 (1.0-4.8); MEAN CELL VOLUME 80.5 FL (80.0-100.0); MEAN CORPUSCULAR HEMOGLOBIN 24.6 PG (27.0-34.0); MEAN CORPUSCULAR HGB CONC 30.5 % (32.0-36.0); MONO % 5.2 % (0.0-8.0); NEUT % 83.2 % (16.0-70.0); PLATELET COUNT 205 TH/MM3 (150-450); RED CELL DISTRIBUTION WIDTH 18.5 % (11.6-17.2); WHITE BLOOD COUNT 8.7 TH/MM3 (4.0-11.0)
[2016-07-20 09:48] LABS: HEMO FLAGS AUTO DIFF
[2016-07-20 09:58] LABS: BICARBONATE 28.3 MEQ/L (21.0-32.0); POTASSIUM 3.9 MEQ/L (3.5-5.1)
[2016-07-20 10:25] LABS: OVALOCYTES 1+ (NORMAL); SCAN/DIFF AUTO DIFF CONFIRMED
--- NOTE | 2016-07-20 14:36 | HHI.PR ---
Subjective Remarks Resting comfortably in bed afebrile No chest pain or shortness of breath Objective Vitals Vital Signs Date Time Temp Pulse Resp B/P Pulse Ox O2 Delivery O2 Flow Rate FiO2 07/20/16 12:00 98.0 76 19 152/78 94 07/20/16 08:00 98.1 74 19 164/81 93 07/20/16 04:00 98.7 98 24 150/80 94 07/20/16 00:00 99.3 97 22 153/82 93 07/19/16 23:00 83 07/19/16 20:00 97.3 86 24 156/83 93 07/19/16 16:00 97.9 80 18 172/88 96 I/O 07/19/16 07/19/16 07/19/16 07/20/16 07/20/16 07/20/16 07:00 15:00 23:00 07:00 15:00 23:00 Intake Total 2982 ml Balance 2982 ml Intake Oral 480 ml IV Total 2502 ml # Voids 5 10 # Bowel Movements 3 Result Diagram: 07/20/16 0837 07/20/16 0837 Objective Remarks GENERAL: This is a well-nourished,frail elderly, well-developed patient, in no apparent distress. CARDIOVASCULAR: Regular rate and rhythm without murmurs, gallops, or rubs. RESPIRATORY: Clear to auscultation. Breath sounds equal bilaterally. No wheezes , rales, or rhonchi. GASTROINTESTINAL: Abdomen soft, non-tender, nondistended. Normal active bowel sounds MUSCULOSKELETAL: Extremities without clubbing, cyanosis, or edema. NEURO: Alert & Oriented x4 to person, place, time, situation. 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 fib HERBERTH on CKD 3 Obstructive uropathy Hyperatremia hypokalemia dehydration Chronic edema with stasis changes Hypertension still not controlled History of CAD DVT prophylaxis with SCD due to bleeding Plan: Increased hydralazine to 25 twice a day, BMP in a.m. Continue on D5 water with monitoring BMP Nephrology following GI consulted as well as urology Protonix and SCDs for GI and DVT prophylaxis Patient to be followed up tomorrow by his primary dr.Neelima Sifuentes MD Jul 20, 2016 14:36
--- NOTE | 2016-07-20 15:47 | HHI.NPPN ---
Subjective History of Present Illness This patient is a 89-year-old male with a history of hypertension, diabetes mellitus as well as atrial fibrillation presenting with fatigue and noted to be profoundly anemic on presentation. Patient now status post upper endoscopy and colonoscopy revealing gastritis as well as colonic polyps. Presentation patient had evidence of hypernatremia with a sodium of 146 and a creatinine of 2.43. Baseline creatinine level based on preadmission records appears to be about 1.2 with an estimated GFR of 57. Patient denies using NSAIDs prior to admission for analgesia. No vomiting or diarrhea. Interval History Patient lying comfortably in bed. No verbal complaints. Review of Systems General Constitutional: Fatigue Objective Data Data 07/19/16 07/20/16 19:00 07:00 Intake Total 2982 ml Balance 2982 ml Intake Oral 480 ml IV Total 2502 ml # Voids 5 10 # Bowel Movements 3 Vital Signs Date Time Temp Pulse Resp B/P Pulse Ox O2 Delivery O2 Flow Rate FiO2 07/20/16 12:00 98.0 76 19 152/78 94 07/20/16 08:00 98.1 74 19 164/81 93 07/20/16 04:00 98.7 98 24 150/80 94 07/20/16 00:00 99.3 97 22 153/82 93 07/19/16 23:00 83 07/19/16 20:00 97.3 86 24 156/83 93 07/19/16 16:00 97.9 80 18 172/88 96 -: 07/20/16 0837 07/20/16 0837 Physical Exam General Appearance: No Acute Distress, Comfortable Pulmonary Resp Exam: Clear Bilaterally, Breath Sounds Equal Cardiology CV Exam: Irregular Gastrointestinal/Abdomen GI Exam: Soft, Non-Tender Extremeties Extremities Exam: Trace Edema Neurologic Neuro Exam: Alert, Awake, Oriented Psychiatric Psych Exam: Appropriate Responses Assessment/Plan Problem List: (1) Acute kidney insufficiency Plan: Secondary to intravascular volume depletion from poor fluid intake prior to admission as well as recent GI bleed. The patient's creatinine level has improved and now stable at current level which may represent baseline CKD. I will follow-up with the patient has an outpatient at the primary care physician wishes. Bladder scan initially showed large PVR, but bedside bladder scans minimal requiring no cath. Advised to f/u with urology as outpatient. Patient stable for discharge planning from a renal point of view. Patient will be seen when necessary in house. Call if any questions. Would advise outpatient follow-up with nephrology however. Medications should be adjusted for the patient's estimated GFR if clinically indicated. Avoid agents with significant potential for nephrotoxicity possible including NSAIDs for analgesia, iodine contrast agents. Gadolinium is contraindicated if the GFR is below 30. (2) CKD (chronic kidney disease) stage 3, GFR 30-59 ml/min Plan: Most likely related to nephrosclerosis of hypertension and aging. (3) Hypernatremia Plan: Resolved. (4) HTN (hypertension) Plan: Continue Amlodipine to 10mg QD Add Hydralazine 10mg q8h Candido Harris MD Jul 20, 2016 15:47
[2016-07-20] MEDS: hydrALAZINE HCL 25 MG TAB PO SCH (20:40)
[2016-07-21] MEDS: D5W + KCL 20 MEQ INJ 1,000 ML IV SCH ×2 (00:22→08:38)
[2016-07-21 00:28] VITALS: BP 142/72; PULSE 97; RESP 22; TEMP 97.7; O2SAT 94
[2016-07-21 05:01] VITALS: BP 149/82; PULSE 90; RESP 21; TEMP 96.8; O2SAT 96
[2016-07-21 08:02] VITALS: BP 145/77; PULSE 80; RESP 20; TEMP 98.3; O2SAT 93
[2016-07-21 08:27] LABS: BICARBONATE 30.2 MEQ/L (21.0-32.0); POTASSIUM 3.8 MEQ/L (3.5-5.1)
[2016-07-21] MEDS: hydrALAZINE HCL 25 MG TAB PO SCH (08:37)
[2016-07-21] MEDS: PANTOPRAZOLE SOD 40 MG DELAYED RELEASE TAB PO SCH (08:37)
[2016-07-21] MEDS: SODIUM CHLORIDE 0.9% FLUSH 10 ML FLUSH IV FLUSH SCH (08:38)
[2016-07-21] MEDS: amLODIPine BESYLATE 5 MG TAB PO SCH (08:38)
[2016-07-21] MEDS ORDERED: AMLO5 PO (10:23)
[2016-07-21] MEDS ORDERED: HYDR25TA35 PO (10:23)
[2016-07-21] MEDS ORDERED: PANT40TA3 PO (10:23)
[2016-07-21] MEDS ORDERED: MILKSUS PO (10:23)
[2016-07-21] MEDS ORDERED: ASPI81TA11 PO (10:26)
--- NOTE | 2016-07-21 10:27 | HHI.DS ---
Discharge Summary Admission Date Jul 14, 2016 at 14:44 Discharge Date: Jul 21, 2016 Admitting Diagnosis gi bleed (1) Pneumonia (2) NSTEMI (non-ST elevated myocardial infarction) (3) Elevated troponin (4) Hypernatremia (5) Acute kidney insufficiency (6) HTN (hypertension) (7) CKD (chronic kidney disease) stage 3, GFR 30-59 ml/min (8) GI bleed Procedures EGD COLONSOCPY Brief History 89 y CM. HOME VISIT PATIENT. PT BEGAN HAVING GIB. LIVES AT HOME WITH HIS . TAKING LESS PO AND ENDED UP COMING TO [facility] [place] [facility]. FOUND W SEVERE ANEMIA. TRANSFUSED TWO UNITS PRBC'S. PT TYPICALLY IS UP AND WALKS SOME IN HIS BEDROOM, AND BACK AND FORTH SOME TO THE RESTROOM. HAS HAD GENERAL DECLINE OVER THE LAST THREE WEEKS PER THE DG[facility]. [facility] IS AT BEDSIDE. CBC/BMP: 07/20/16 0837 07/21/16 0653 Significant Findings Laboratory Tests Test 07/19/16 07/20/16 07/21/16 06:40 08:37 06:53 Red Blood Count 3.86 MIL/MM3 3.90 MIL/MM3 (4.50-5.90) (4.50-5.90) Hemoglobin 9.5 GM/DL 9.6 GM/DL (13.0-17.0) (13.0-17.0) Hematocrit 31.1 % 31.4 % (39.0-51.0) (39.0-51.0) Mean Corpuscular Hemoglobin 24.6 PG 24.6 PG (27.0-34.0) (27.0-34.0) Mean Corpuscular Hemoglobin 30.5 % 30.5 % Concent (32.0-36.0) (32.0-36.0) Red Cell Distribution Width 18.2 % 18.5 % (11.6-17.2) (11.6-17.2) Neutrophils (%) (Auto) 81.6 % 83.2 % (16.0-70.0) (16.0-70.0) Neutrophils # (Auto) 7.9 TH/MM3 (1.8-7.7) Lymphocytes # (Auto) 0.9 TH/MM3 0.8 TH/MM3 (1.0-4.8) (1.0-4.8) Neutrophils % (Manual) 77 % (16-70) Ovalocytes 1+ (NORMAL) 1+ (NORMAL) Sodium Level 146 MEQ/L (136-145) Chloride Level 111 MEQ/L 108 MEQ/L 108 MEQ/L (98-107) (98-107) (98-107) Blood Urea Nitrogen 34 MG/DL (7-18) 37 MG/DL (7-18) 41 MG/DL (7-18) Creatinine 1.91 MG/DL 2.15 MG/DL 2.05 MG/DL (0.60-1.30) (0.60-1.30) (0.60-1.30) Estimat Glomerular Filtration 33 ML/MIN (>89) 29 ML/MIN (>89) 31 ML/MIN (>89) Rate Random Glucose 112 MG/DL 146 MG/DL (74-106) (74-106) Calcium Level 8.4 MG/DL 8.2 MG/DL 8.3 MG/DL (8.5-10.1) (8.5-10.1) (8.5-10.1) Lymphocytes (%) (Auto) 8.8 % (9.0-44.0) PE at Discharge GENERAL: SKIN: Warm and dry. LARGE SACRAL WOUND HEAD: Atraumatic. Normocephalic. EYES: Pupils equal and round. No scleral icterus. No injection or drainage. ENT: No nasal bleeding or discharge. Mucous membranes pink and moist. NECK: Trachea midline. No JVD. CARDIOVASCULAR: Regular rate and rhythm. RESPIRATORY: No accessory muscle use. Clear to auscultation. Breath sounds equal bilaterally. GASTROINTESTINAL: Abdomen soft, non-tender, nondistended. Hepatic and splenic margins not palpable. MUSCULOSKELETAL: Extremities without clubbing, cyanosis, or edema. No obvious deformities. NEUROLOGICAL: Awake and alert. No obvious cranial nerve deficits. Motor grossly within normal limits. 1 out of 5 muscle strength in the arms and legs. Normal speech. PSYCHIATRIC: Appropriate mood and affect; insight and judgment normal. Hospital Course 89 Y CM, ADMIT WITH- GIB ACUTE BLOOD LOSS ANEMIA GASTRITIS RECTAL ULCER, RADIATION PROCTITIS S/P PROSTATE CA RT LARGE BUTTOCK HEMATOMA WITH BLEEDING DECUB ULCER AFIB ON ELIQUIS HYPERNATREMIA HERBERTH CKD 3 URINARY OBSTRUCTION OF RENAL US HYPOKALEMIA DEHYDRATION CHRONIC EDEMA ELEPHANTIASIS W STASIS CHANGES HTN CAD HOSPITAL COURSE AND PLAN WAS TO - IVF W K REPLACE K PROTONIX ST CATH PRN GI CONSULT NEPHRO CONSULT UROLOGY CONSULT WOUND CONSULT AM LABS WANTS TO GO TO [facility] IN 3 WEEKS D/T GIB Discharge Disposition: Discharge to SNF Discharge Instructions DIET: Follow Instructions for: As Tolerated, No Restrictions Activities you can perform: Regular-No Restrictions Follow up Referrals: Gastroenterology - 1 Week with Hans Vieyra MD Urology - 1 Week with Juan Trujillo DO New Medications: Aspirin DR (Aspirin EC) 81 Mg Tabdr 81 MG PO EVERY OTHER DAY af Days 30 Ref 11 TAB Amlodipine (Norvasc) 5 Mg Tab 10 MG PO DAILY htn Days 90 TAB Hydralazine (Hydralazine) 25 Mg Tab 25 MG PO TID htn Days 90 Ref 11 TAB Magnesium Hydroxide Liq (Milk of Magnesia Liq) 400 Mg/5 Ml Susp 30 ML PO Q12H PRN CONSTIPATION #15 Ref 5 BOTTLE Pantoprazole (Pantoprazole) 40 Mg Tab 40 MG PO DAILY gib #30 Ref 11 TAB Continued Medications: Cholecalciferol (Vitamin D3) 50,000 Unit Tab 36337 UNITS PO WEEKLY Nutritional Supplement #1 Ref 0 BOTTLE Discontinued Medications: Apixaban (Eliquis) 5 Mg Tab 5 MG PO BID Blood Clot Prevention #60 Ref 0 TAB Betamethasone Valerate Topical (Betamethasone Valerate Topical) 0.1% Cream 1 APPLIC TOPICAL BID Apply to affected area(s) Dermatoses #15 Ref 0 GM Berto Perrin MD Jul 21, 2016 10:27
--- NOTE | 2016-07-21 10:32 | HHI.DCPOC ---
Discharge Care Plan Diagnosis: (1) GI bleed (2) Hypernatremia (3) Acute kidney insufficiency (4) HTN (hypertension) (5) CKD (chronic kidney disease) stage 3, GFR 30-59 ml/min (6) Pneumonia (7) Elevated troponin (8) NSTEMI (non-ST elevated myocardial infarction) Goals to Promote Your Health * To prevent worsening of your condition and complications * To maintain your health at the optimal level Directions to Meet Your Goals Take your medications as prescribed Follow your dietary instruction Follow activity as directed Keep your appointments as scheduled Take your immunizations and boosters as scheduled If your symptoms worsen call your PCP, if no PCP go to Urgent Care Center or Emergency Room Smoking is Dangerous to Your Health. Avoid second hand smoke Call the 24-hour hour crisis hotline for domestic abuse at Berto Perrin MD Jul 21, 2016 10:32
[2016-07-21 12:23] VITALS: BP 143/75; PULSE 82; RESP 20; TEMP 97.7; O2SAT 96
[2016-09-10] MEDS ORDERED: TAMS0.4C4 PO (14:56)
[2016-09-10] MEDS ORDERED: BETH25TA2 PO (14:57)
[2016-10-15] MEDS ORDERED: CHOL1CAP34 PO (09:54)
[2016-10-15] MEDS ORDERED: TYLE325T PO (09:54)
[2016-10-15] MEDS ORDERED: HYDR-3799 PO (09:54)
== END 2016-07-21 16:35 | DRG 378 ==
LOC: NEPA 11:07 → NEDA 14:44 → N05A 18:26
PROVIDERS: ADMIT Family Medicine; ATTEND Family Medicine
PROC: 30233N1 Transfusion of Nonautologous Red Blood Cells into Peripheral Vein, Percutaneous Approach (ICD-10-PCS; 2016-07-14)
PROC: 0DBP8ZX Excision of Rectum, Via Natural or Artificial Opening Endoscopic, Diagnostic (ICD-10-PCS; 2016-07-15)
PROC: 0DB68ZX Excision of Stomach, Via Natural or Artificial Opening Endoscopic, Diagnostic (ICD-10-PCS; principal; 2016-07-15 15:00)
PROC: 0DBL8ZX Excision of Transverse Colon, Via Natural or Artificial Opening Endoscopic, Diagnostic (ICD-10-PCS; 2016-07-15 15:00)
DX: K92.2 Gastrointestinal hemorrhage, unspecified (principal); D62 Acute posthemorrhagic anemia; S30.0XXA Contusion of lower back and pelvis, initial encounter; E87.0 Hyperosmolality and hypernatremia; N17.9 Acute kidney failure, unspecified; L89.159 Pressure ulcer of sacral region, unspecified stage; I48.91 Unspecified atrial fibrillation; N13.9 Obstructive and reflux uropathy, unspecified; K62.6 Ulcer of anus and rectum; K62.7 Radiation proctitis; Z85.46 Personal history of malignant neoplasm of prostate; K29.70 Gastritis, unspecified, without bleeding; I12.9 Hypertensive chronic kidney disease with stage 1 through stage 4 chronic kidney disease, or unspecified chronic kidney disease; N18.3 Chronic kidney disease, stage 3 (moderate); E11.9 Type 2 diabetes mellitus without complications; E86.9 Volume depletion, unspecified; E86.0 Dehydration; E78.5 Hyperlipidemia, unspecified; E87.6 Hypokalemia; R60.9 Edema, unspecified; I89.0 Lymphedema, not elsewhere classified; I25.10 Atherosclerotic heart disease of native coronary artery without angina pectoris; Z79.02 Long term (current) use of antithrombotics/antiplatelets; K57.90 Diverticulosis of intestine, part unspecified, without perforation or abscess without bleeding; D12.3 Benign neoplasm of transverse colon
CPT/HCPCS: 36430; 76775; 80048; 80053; 80069; 82306; 82784; 83883; 83970; 84165; 85007; 85025; 85027; 85610; 85730; 86334; 86850; 86900; 86901; 86920; 88305; 88312; 99285; C9113; G0103; J3480; P9016

== ENCOUNTER 2016-08-05 16:54 | Inpatient (IN) | payer MEDICARE, BC ==
[~2016-08-05] VITALS: Ht 193 cm; Wt 125.0 kg
[~2016-08-05 16:54] MED LIST changes: +AMLO5 PO; -APIX5 PO; +ASPI81TA11 PO; +CHOL1TAB16 PO; -DOXA1 PO; -FEXO180 PO; +HYDR25TA35 PO; -LASI20TA PO; -LEVA500T PO; -METO50TA PO; +MILKSUS PO; +PANT40TA3 PO; -POTA-243 PO; -PRAV20 PO
[2016-08-05 17:10] VITALS: BP 134/71; PULSE 91; RESP 16; TEMP 98.2; O2SAT 96
[2016-08-05] MEDS ORDERED: MULTTAB67 PO (17:56)
[2016-08-05] MEDS ORDERED: OMEP40CA2 PO (17:56)
[2016-08-05] MEDS ORDERED: ASCO500C PO (17:56)
[2016-08-05] MEDS ORDERED: SODIUM CHLORIDE 0.9% FLUSH 10 ML FLUSH IV FLUSH PRN ×2 (19:00→21:45)
--- NOTE | 2016-08-05 19:54 | PD ---
HPI Chief Complaint: Abnormal Results Time Seen by Provider: 19:53 Travel History International Travel<30 days: No Contact w/Intl Traveler<30days: No Traveled to known affect area: No History of Present Illness HPI Patient comes from assisted living facility after having some abnormal lab results found today. Patient denies any medical complaints. Denies any chest pain, shortness breath, fevers, loss or change in bowel or bladder, abdominal pain, headache, nausea, or vomiting. PFSH Past Medical History Hx Anticoagulant Therapy: Yes Atrial Fibrillation: Yes Anxiety: No Depression: No Heart Rhythm Problems: Yes (a-fib) Cancer: No Cardiovascular Problems: Yes (htn on meds.) High Cholesterol: Yes Chest Pain: No Congestive Heart Failure: No Diabetes: No Diminished Hearing: No Endocrine: No Hypertension: Yes Immune Disorder: No Musculoskeletal: No Neurologic: No Psychiatric: No Reproductive: No Respiratory: No Integumentary: Yes (pressure ulcer type 2) Renal Failure: Yes (CKD) Thyroid Disease: No Social History Alcohol Use: Yes (occas. beer) Tobacco Use: No Substance Use: No Allergies-Medications (Allergen,Severity, Reaction): Coded Allergies: No Known Allergies (Unverified , 08/05/16) Reported Meds & Prescriptions Reported Meds & Active Scripts Active Aspirin EC (Aspirin) 81 Mg Tabdr 81 Mg PO EVERY OTHER DAY 30 Days Pantoprazole (Pantoprazole Sodium) 40 Mg Tab 40 Mg PO DAILY Milk of Magnesia Liq (Magnesium Hydroxide) 400 Mg/5 Ml Susp 30 Ml PO Q12H PRN Hydralazine (Hydralazine HCl) 25 Mg Tab 25 Mg PO TID 90 Days Norvasc (Amlodipine Besylate) 5 Mg Tab 10 Mg PO DAILY 90 Days Reported Omeprazole 40 Mg Cap 40 Mg PO DAILY Multiple Vitamin 1 Tab 1 Tab PO DAILY Vitamin C (Ascorbic Acid) 500 Mg Cap 500 Mg PO Vitamin D3 (Cholecalciferol) 50,000 Unit Tab 50,000 Units PO WEEKLY Review of Systems Except as stated in HPI: all other systems reviewed are Neg Physical Exam Narrative GENERAL: Well-developed, overly nourished, in no acute distress, and non-ill appearing. SKIN: Patient has a sacral hematoma noted with scant drainage. The was noted on previous admission to the hospital and is tender to palpation. HEAD: Atraumatic. Normocephalic. EYES: Pupils equal and round. EOMI. No scleral icterus. No injection or drainage. ENT: No nasal bleeding or discharge. Mucous membranes pink and moist. NECK: Trachea midline. Supple. No nuclear rigidity. CARDIOVASCULAR: Regular rate and rhythm. No murmur appreciated. RESPIRATORY: No accessory muscle use. No respiratory distress. Clear to auscultation. Breath sounds equal bilaterally. GASTROINTESTINAL: Abdomen soft, non-tender, nondistended. Hepatic and splenic margins not palpable. Normal bowel sounds 4. No pulsatile mass. MUSCULOSKELETAL: No obvious deformities. No clubbing. No cyanosis. Full range of motion bilateral upper extremities. NEUROLOGICAL: Awake and alert. No obvious cranial nerve deficits. Motor grossly within normal limits. Normal speech. PSYCHIATRIC: Appropriate mood and affect; insight and judgment normal. Data Data Last Documented VS Vital Signs Date Time Temp Pulse Resp B/P Pulse Ox O2 Delivery O2 Flow Rate FiO2 08/05/16 17:10 98.2 91 16 134/71 96 Orders Complete Blood Count With Diff (08/05/16 18:53) Comprehensive Metabolic Panel (08/05/16 18:53) Prothrombin Time / Inr (Pt) (08/05/16 18:53) Act Partial Throm Time (Ptt) (08/05/16 18:53) Urinalysis - C+S If Indicated (08/05/16 18:53) Iv Access Insert/Monitor (08/05/16 18:53) Ecg Monitoring (08/05/16 18:53) Oximetry (08/05/16 18:53) Sodium Chloride 0.9% Flush (Ns Flush) (08/05/16 19:00) Electrocardiogram (08/05/16 18:53) Sodium Chlorid 0.9% 500 Ml Inj (Ns 500 M (08/05/16 21:00) Place In Observation (08/05/16 ) Vital Signs (Adult) Q4H (08/05/16 21:31) Activity Oob With Assistance (08/05/16 21:31) Claims Director / Telemetry .CONTINUOUS (08/05/16 21:31) Diet Npo (08/06/16 Breakfast) Sodium Chloride 0.9% Flush (Ns Flush) (08/05/16 21:45) Sodium Chloride 0.9% Flush (Ns Flush) (08/06/16 09:00) Ondansetron Inj (Zofran Inj) (08/05/16 21:45) Basic Metabolic Panel (Bmp) (08/06/16 06:00) Complete Blood Count With Diff (08/06/16 06:00) Pt Request For Service (08/05/16 21:31) Case Management Consult (08/05/16 21:31) Naloxone Inj (Narcan Inj) (08/05/16 21:45) Hgb & Hct (08/06/16 05:55) Hgb & Hct (08/06/16 11:55) Hgb & Hct (08/06/16 17:55) Admit Order (Ed Use Only) (08/05/16 22:14) Labs Laboratory Tests Test 08/05/16 19:35 Prothrombin Time 12.0 SEC Prothromb Time International 1.1 RATIO Ratio Activated Partial 26.4 SEC Thromboplast Time Sodium Level 143 MEQ/L Potassium Level 4.2 MEQ/L Chloride Level 110 MEQ/L Carbon Dioxide Level 24.3 MEQ/L Anion Gap 9 MEQ/L Blood Urea Nitrogen 79 MG/DL Creatinine 3.66 MG/DL Estimat Glomerular Filtration 16 ML/MIN Rate Random Glucose 99 MG/DL Calcium Level 8.6 MG/DL Total Bilirubin 0.5 MG/DL Aspartate Amino Transf 22 U/L (AST/SGOT) Alanine Aminotransferase 20 U/L (ALT/SGPT) Alkaline Phosphatase 153 U/L Total Protein 8.3 GM/DL Albumin 2.1 GM/DL White Blood Count 10.0 TH/MM3 Red Blood Count 3.32 MIL/MM3 Hemoglobin 8.3 GM/DL Hematocrit 26.9 % Mean Corpuscular Volume 81.1 FL Mean Corpuscular Hemoglobin 24.9 PG Mean Corpuscular Hemoglobin 30.7 % Concent Red Cell Distribution Width 20.8 % Platelet Count 243 TH/MM3 Mean Platelet Volume 7.3 FL Neutrophils (%) (Auto) 81.1 % Lymphocytes (%) (Auto) 8.7 % Monocytes (%) (Auto) 7.3 % Eosinophils (%) (Auto) 2.2 % Basophils (%) (Auto) 0.7 % Neutrophils # (Auto) 8.1 TH/MM3 Lymphocytes # (Auto) 0.9 TH/MM3 Monocytes # (Auto) 0.7 TH/MM3 Eosinophils # (Auto) 0.2 TH/MM3 Basophils # (Auto) 0.1 TH/MM3 CBC Comment AUTO DIFF Differential Comment AUTO DIFF CONFIRMED Platelet Estimate NORMAL Platelet Morphology Comment NORMAL Tear Drop Cells 1+ Ovalocytes 1+ Acanthocytes OCC MDM Medical Decision Making Medical Screen Exam Complete: Yes Emergency Medical Condition: Yes Interpretation(s) EKG reviewed by Dr. Hebert shows A. fib with a ventricular rate of 75. No STEMI. Differential Diagnosis Anemia, electrolyte abnormality, dehydration, anemia of chronic disease, history of kidney insufficiency, other Narrative Course Patient was seen and examined. Initial laboratory studies were obtained and reviewed with the exception of urinalysis patient voided in his adult diapers. Straight catheter urine was ordered. Patient was guaiac positive, however stool is green and there is no obvious blood sugars may be secondary to hemorrhoids versus contaminant from hematoma. Patient was typed and screen. I would question whether this is a true GI bleed versus anemia of chronic disease versus issue with his hematoma. Discussed all findings with Dr. Hebert, who is in agreement with plan of care and disposition. Discussed all findings and plan care of patient who is agreeable for admission. All questions were answered. HemaPrompt Point of Care Internal Pos. & Neg. Controls: Passed Fecal Specimen Occult Blood: Positive Comment Verbal consent was obtained. Digital rectal exam was performed. Stool specimen applied and test interpreted between 1 and 3 minutes of application and the result was positive. , Patient stool was light green not dark and there was no occult blood. Internal Controls: Both positive and negative controls were validated. help aid was present during this exam. Physician Communication Physician Communication [id number] Vicente, who is agreeable to admit the patient. Diagnosis Primary Impression: Acute kidney injury superimposed on chronic kidney disease Additional Impressions: GI bleed Qualified Code: K92.2 - Gastrointestinal hemorrhage, unspecified gastrointestinal hemorrhage type Hematoma Anemia Qualified Code: D64.9 - Anemia, unspecified type Admitting Information Admitting Physician Requests: Observation Condition: Stable Eliezer White Aug 05, 2016 19:54
[2016-08-05 20:12] LABS: AUTOMATED NEUTROPHIL # 8.1 TH/MM3 (1.8-7.7); BASOPHIL # 0.1 TH/MM3 (0-0.2); BASOPHIL % 0.7 % (0.0-2.0); EOSINOPHIL # 0.2 TH/MM3 (0-0.4); EOSINOPHIL % 2.2 % (0.0-4.0); HEMATOCRIT 26.9 % (39.0-51.0); LYMPH % 8.7 % (9.0-44.0); LYMPHOCYTE # 0.9 TH/MM3 (1.0-4.8); MEAN CELL VOLUME 81.1 FL (80.0-100.0); MEAN CORPUSCULAR HEMOGLOBIN 24.9 PG (27.0-34.0); MEAN CORPUSCULAR HGB CONC 30.7 % (32.0-36.0); MONO % 7.3 % (0.0-8.0); NEUT % 81.1 % (16.0-70.0); PLATELET COUNT 243 TH/MM3 (150-450); RED BLOOD COUNT 3.32 MIL/MM3 (4.50-5.90); RED CELL DISTRIBUTION WIDTH 20.8 % (11.6-17.2)
[2016-08-05 20:24] LABS: APTT (PATIENT) 26.4 SEC (24.3-30.1); INTERNATIONAL NORMALIZED RATIO 1.1 RATIO
[2016-08-05 20:33] LABS: HEMO FLAGS AUTO DIFF
[2016-08-05 20:42] LABS: ANION GAP 9 MEQ/L (5-15); AST (GOT) 22 U/L (15-37); BICARBONATE 24.3 MEQ/L (21.0-32.0); BLOOD UREA NITROGEN 79 MG/DL (7-18); CHLORIDE 110 MEQ/L (98-107); GLOMERULAR FILTRATION RATE 16 ML/MIN (>89); POTASSIUM 4.2 MEQ/L (3.5-5.1); SODIUM (NA) 143 MEQ/L (136-145)
[2016-08-05 20:45] LABS: ALKALINE PHOSPHATASE 153 U/L (45-117); ALT (GPT) 20 U/L (12-78); TOTAL BILIRUBIN ADULT 0.5 MG/DL (0.2-1.0)
[2016-08-05] MEDS ORDERED: SODIUM CHLORID 0.9% 500 ML INJ 500 ML IV ONE (21:00)
[2016-08-05 21:26] LABS: ACANTHOCYTES OCC (NORMAL); OVALOCYTES 1+ (NORMAL); PLATELET ESTIMATE SMEAR NORMAL (NORMAL); PLATELET MORPHOLOGY NORMAL (NORMAL); SCAN/DIFF AUTO DIFF CONFIRMED; TEARDROP RBCS 1+ (NORMAL)
[2016-08-05] MEDS ORDERED: NALOXONE HCL 0.4 MG/ML AMP IV PRN (21:45)
[2016-08-05] MEDS ORDERED: ONDANSETRON HCL 4 MG/2 ML VIAL IVP PRN (21:45)
[2016-08-05 22:34] VITALS: RESP 16; O2SAT 98
[2016-08-05 22:46] VITALS: BP 145/64; PULSE 87; RESP 16; TEMP 98.4; O2SAT 99
--- NOTE | 2016-08-05 22:56 | EKG ---
Date Performed: 08/05/2016 Time Performed: 19:58:08 PTAGE: 89 years EKG: ATRIAL FIBRILLATION WITH ABERRANT CONDUCTION OR VENTRICULAR PREMATURE COMPLEXES SEPTAL MYOC ARDIAL INFARCTION ABNORMAL ECG PREVIOUS TRACING : 01/20/2016 05.05 Compared to the previous tracing, change in QRS transition precordially may be due to lead placement DOCTOR: Torsten Skinner Interpretating Date/Time 08/05/2016 22:56:21
[2016-08-06] VITALS (14 sets, daily range): BP systolic 118–168; BP diastolic 70–87; PULSE 84–127; RESP 18–22; TEMP 97.8–98.6; O2SAT 94–97
[2016-08-06 00:39] LABS: BACTERIA, URINE OCC /hpf; BLOOD, URINE MOD (NEG); COMMENT (UR) CULTURE INDICATED; CULTURE IF INDICATED CULTURE INDICATED; GLUCOSE,URINE NEG (NEG); KETONE, URINE NEG (NEG); MUCUS URINE FEW /lpf (OCC); NITRITE,URINE NEG (NEG); SQUAMOUS EPITHELIAL CELL URINE <1 /hpf (0-5); URINE COLOR LIGHT-YELLOW (YELLW/STRAW)
--- NOTE | 2016-08-06 01:54 | HHI.HP ---
HPI Service [facility] Primary Care Physician Berto Perrin MD Admission Diagnosis acute on chronic kidney failure, GI bleed, hematoma, Anemia Diagnoses: Chief Complaint: they think I had bleeding Travel History International Travel<30 Days: No Contact w/Intl Traveler <30 Da: No Traveled to Known Affected Are: No History of Present Illness History from patient, ER provided medication, and review of medical records. Patient reported that the staff members at rehabilitation facility where he resides thought that he was bleeding because he noted some blood in his stool. However he reports that he has a wound in his behind and that was also bleeding previously. He states they are not sure whether the blood is coming from that ulcer or from his stool itself. He himself is also not sure. In the emergency room, guaiac test was done by ER provider and this was positive. Again, report stated that it was quite unclear whether there was contaminant from the wound itself. Patient himself denies any vomiting blood. He denies any nausea/vomiting/diarrhea. He denies any chest pain/palpitations/shortness of breath/dizziness/syncopal episodes. He states he was doing well and was able to participate in the physical therapy there. 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 He reports that his baseline status as he was living with his and daughter at home previous to his last hospitalization and that he's been at the rehabilitation facility only for the past 1 month or so. Patient's blood work in the emergency room is noted to have elevated BUN and creatinine from his baseline. His hemoglobin is also somewhat low although not significant drop. Patient does have history of CAD. Review of Systems Except as stated in HPI: all other systems reviewed are Neg Past Family Social History Past Medical History Hypertension CAD Atrial fibrillation Chronic kidney diseasestage III Obstructive uropathy Radiation proctitis status post prostate cancer treatment Decubitus ulcer with hematoma and bleeding Chronic venous stasis and edema Reported Medications Patient's medications list from rehabilitation facility[facility] Allergies: Coded Allergies: No Known Allergies (Unverified , 08/05/16) Social History Denies smoking. States he drinks alcohol socially when he was younger. Currently lives at a nursing facility for rehabilitation for about a month or so now. He states he was living with his and daughter prior to that. Physical Exam Vital Signs Vital Signs Date Time Temp Pulse Resp B/P Pulse Ox O2 Delivery O2 Flow Rate FiO2 08/05/16 22:46 98.4 87 16 145/64 99 Room Air 08/05/16 22:34 16 98 Room Air 08/05/16 17:10 98.2 91 16 134/71 96 Physical Exam GENERAL: This is possibly gentleman, very pleasant, not in acute distress. Hard of hearing. SKIN: Multiple superficial ecchymosis. HEAD: Atraumatic. Normocephalic. No temporal or scalp tenderness. EYES: No scleral icterus. No injection or drainage. ENT: Nose without bleeding, purulent drainage or septal hematoma. Airway patent. NECK: Trachea midline. No JVD CARDIOVASCULAR: Regular rate and rhythm without murmurs, gallops, or rubs. RESPIRATORY: Decreased air entry bilaterally due to body habitus GASTROINTESTINAL: Abdomen soft, non-tender, nondistended. No guarding. Urinary incontinence present MUSCULOSKELETAL: Extremities without clubbing. No calf asymmetry. Bilateral lower extremity chronic venous stasis and edema. NEUROLOGICAL: Awake and alert. Normal speech. Laboratory Laboratory Tests Test 08/05/16 08/05/16 08/06/16 19:35 23:00 00:06 Prothrombin Time 12.0 Prothromb Time International 1.1 Ratio Activated Partial 26.4 Thromboplast Time Sodium Level 143 Potassium Level 4.2 Chloride Level 110 Carbon Dioxide Level 24.3 Anion Gap 9 Blood Urea Nitrogen 79 Creatinine 3.66 Estimat Glomerular Filtration 16 Rate Random Glucose 99 Calcium Level 8.6 Total Bilirubin 0.5 Aspartate Amino Transf 22 (AST/SGOT) Alanine Aminotransferase 20 (ALT/SGPT) Alkaline Phosphatase 153 Total Protein 8.3 Albumin 2.1 White Blood Count 10.0 Red Blood Count 3.32 Hemoglobin 8.3 Hematocrit 26.9 Mean Corpuscular Volume 81.1 Mean Corpuscular Hemoglobin 24.9 Mean Corpuscular Hemoglobin 30.7 Concent Red Cell Distribution Width 20.8 Platelet Count 243 Mean Platelet Volume 7.3 Neutrophils (%) (Auto) 81.1 Lymphocytes (%) (Auto) 8.7 Monocytes (%) (Auto) 7.3 Eosinophils (%) (Auto) 2.2 Basophils (%) (Auto) 0.7 Neutrophils # (Auto) 8.1 Lymphocytes # (Auto) 0.9 Monocytes # (Auto) 0.7 Eosinophils # (Auto) 0.2 Basophils # (Auto) 0.1 CBC Comment AUTO DIFF Differential Comment AUTO DIFF CONFIRMED Platelet Estimate NORMAL Platelet Morphology Comment NORMAL Tear Drop Cells 1+ Ovalocytes 1+ Acanthocytes OCC Blood Type AB POSITIVE Antibody Screen NEGATIVE Urine Color LIGHT-YELLOW Urine Turbidity CLOUDY Urine pH 6.0 Urine Specific [place] 1.010 Urine Protein 30 Urine Glucose (UA) NEG Urine Ketones NEG Urine Occult Blood MOD Urine Nitrite NEG Urine Bilirubin NEG Urine Urobilinogen LESS THAN 2.0 Urine Leukocyte Esterase LARGE Urine RBC 11 Urine WBC Urine WBC Clumps MANY Urine Squamous Epithelial <1 Cells Urine Bacteria OCC Urine Mucus FEW Microscopic Urinalysis Comment CULTURE INDICATED Date/Time Procedure Status Source Growth 08/06/16 00:06 Urine Culture Received Urine Clean Catch Pending Result Diagram: 08/05/16193408/05/161934 Assessment and Plan Assessment and Plan Impression: Possible GI bleed Acute on chronic kidney diseasesecondary to dehydration versus GI bleed Hypertension CAD Atrial fibrillationon chronic anticoagulation with Eliquis Chronic kidney diseasestage III Obstructive uropathy Radiation proctitis status post prostate cancer treatment Decubitus ulcer with hematoma and bleeding Chronic venous stasis and edema Plan: Serial hemoglobin and hematocrit. IV hydration and will follow renal function. Given that patient does have cardiac risk factors, transfusion to keep hemoglobin greater than 10 would be appropriate. Would also check an echocardiogram. Transfuse slowly over 4 hours each unit. Hold Eliquis. Clinically, I do not believe that patient has active GI bleed. He does look well. I believe that he does have chronic anemia and possibly slow bleeding from his wounds. He did have panendoscopy on July 16, 2016. Pathology report reviewed. Severe chronic active gastritis with intestinal metaplasia. Tubulovillous adenoma. Rectal prolapse with solitary rectal ulcer. Would obtain GI opinion in regards to resuming Eliquis. Resume rest of his home medications. DVT prophylaxisto resume Eliquis once cleared by GI. Currently SCD. GI prophylaxis on pantoprazole. Lei Vicente MD Aug 06, 2016 01:54
[2016-08-06 01:59] LABS: AUTOMATED NEUTROPHIL # 7.2 TH/MM3 (1.8-7.7); BASOPHIL # 0.1 TH/MM3 (0-0.2); BASOPHIL % 0.6 % (0.0-2.0); EOSINOPHIL # 0.2 TH/MM3 (0-0.4); EOSINOPHIL % 2.4 % (0.0-4.0); HEMATOCRIT 25.9 % (39.0-51.0); HEMO FLAGS DIFF FINAL; MEAN CELL VOLUME 82.6 FL (80.0-100.0); MEAN CORPUSCULAR HGB CONC 30.2 % (32.0-36.0); MONO % 6.7 % (0.0-8.0); NEUT % 79.3 % (16.0-70.0); PLATELET COUNT 242 TH/MM3 (150-450); RED BLOOD COUNT 3.13 MIL/MM3 (4.50-5.90); RED CELL DISTRIBUTION WIDTH 20.8 % (11.6-17.2)
[2016-08-06 02:22] LABS: BICARBONATE 24.2 MEQ/L (21.0-32.0); POTASSIUM 3.8 MEQ/L (3.5-5.1)
[2016-08-06] MEDS ORDERED: HYDR1OIN25 (03:12)
[2016-08-06] MEDS ORDERED: ACET325T PO (03:12)
[2016-08-06] MEDS ORDERED: SILV1CRE20 TOPICAL (03:12)
[2016-08-06] MEDS: SODIUM CHLORIDE 0.9% FLUSH 10 ML FLUSH IV FLUSH SCH ×2 (09:45→20:08)
[2016-08-06 11:08] LABS: HEMATOCRIT 29.5 % (39.0-51.0); REVIEW FLAG FINAL
--- NOTE | 2016-08-06 13:27 | PD.CONS ---
HPI History of Present Illness This is a 89 year old male who was sent to the ER for evaluation of abnormal labs- anemia. Pt had rectal exam by ER physician and this was light green in color, but hemoccult postive. However, he has a decubitus ulcer and it was unclear if this was a contaminant from the wound or a true positive result. His Eliquis was placed on hold and he was given 2 units of PRBC. GI was consulted for opinion with regards to resuming the patient's liquids. The patient was recently hospitalized for anemia, atrial fibrillation, large buttock hematoma/ulcer, acute on chronic kidney disease, hypertension and coronary artery disease. During that hospitalization he was evaluated with EGD/ colonoscopy (07/16/16) and this revealed 1. There was erythematous gastritis in the gastric antrum; multiple biopsies were performed 2. Normal endoscopy otherwise 3. Retroflexed views revealed no abnormalities. 1. Two large pedunculated polyps were found in the distal transverse colon; Adenomatous; polypectomy was performed using snare cautery 2. Moderate diverticulosis was noted throughout the entire examined colon 3. Medium sized abnormal mucosa was found in the rectum; The mucosa was erythematous, friable and nodular; multiple biopsies were performed 4. The colon mucosa was otherwise normal 5. Retroflexed views revealed no abnormalities 6. Revealed no abnormalities of the rectum 7. Early decubitus ulcer noted in the coccyx area. Pathology revealed stomach antrum with severe chronic active gastritis with intestinal metaplasia, negative for Helicobacter pylori, colon transverse with tubulovillous adenoma, fragments, colon rectum with ulcerated colonic mucosa with marketed acute and chronic lymphoplasma cellular inflammation and architectural distortion suggestive of rectal prolapse (solitary rectal ulcer). The gastric biopsies demonstrated a marketed chronic active gastritis which is most commonly associated with Helicobacter pylori infection. The negative Cecilio stain does not completely exclude the possibility of infection as this may be related to sampling error or previous treatment. He was then seen in the office by Dr. Rajput yesterday as outpatient and it was recommended that he have an H/H rechecked in 2-3 weeks and if still anemic, to consider capsule endoscopy. The patient is resting in bed in no distress. He reports that he is doing very well. He is tolerating his diet and not having any issues with this. He denies any nausea, vomiting, abdominal pain, heartburn, reflux, constipation, diarrhea, black tarry stools, or red blood in his stool. He is hungry and would like to eat. (Suzette Boledn) PFSH Past Medical History Hypertension CAD Atrial fibrillation Chronic kidney diseasestage III Obstructive uropathy Decubitus ulcer with hematoma and bleeding Chronic venous stasis and edema Erythematous gastritis in the gastric antrum Tubulovillous adenomas Rectal ulcer Past Surgical History EGD/Colonoscopy (Suzette Bolden) Coded Allergies: No Known Allergies (Unverified , 08/05/16) Medications Allergies Coded Allergies Type Severity Reaction Last Updated Verified No Known Allergies 08/05/16 No Active Scripts Medications Dose Route/Sig Days Date Category Acetaminophen 325 Mg Tab 650 Mg PO Q4H PRN 08/06/16 Reported Hydrocortisone 1% in Abso (Hydrocortisone (Topical)) 1 % Oin BID 08/06/16 Reported Silvadene Topical (Silver Sulfadiazine) 1 % Cream 1 Applic TOPICAL DAILY PRN 08/06/16 Reported Omeprazole 40 Mg Cap 40 Mg PO DAILY 08/05/16 Reported Multiple Vitamin 1 Tab 1 Tab PO DAILY 08/05/16 Reported Vitamin C (Ascorbic Acid) 500 Mg Cap 500 Mg PO 08/05/16 Reported Aspirin EC (Aspirin) 81 Mg Tabdr 81 Mg PO EVERY OTHER DAY 30 07/21/16 Rx Pantoprazole (Pantoprazole Sodium) 40 Mg Tab 40 Mg PO DAILY 07/21/16 Rx Milk of Magnesia Liq (Magnesium Hydroxide) 400 Mg/5 Ml Susp 30 Ml PO Q12H PRN 07/21/16 Rx Hydralazine (Hydralazine HCl) 25 Mg Tab 25 Mg PO TID 90 07/21/16 Rx Norvasc (Amlodipine Besylate) 5 Mg Tab 10 Mg PO DAILY 90 07/21/16 Rx Vitamin D3 (Cholecalciferol) 50,000 Unit Tab 50,000 Units PO WEEKLY 07/14/16 Reported Family History Noncontributory Social History Denies smoking. States he drinks alcohol socially when he was younger. Currently lives at a nursing facility for rehabilitation for about a month or so now. He states he was living with his and daughter prior to that. ( Suzette Bolden) Review of Systems Constitutional: DENIES: Fatigue, Weight loss, Change in appetite Respiratory: DENIES: Cough Cardiovascular: DENIES: Chest pain Gastrointestinal: DENIES: Abdominal pain, Black stools, Bloody stools, Constipation, Diarrhea, Nausea, Vomiting, Swelling of Abdomen, Heartburn Musculoskeletal: COMPLAINS OF: Joint pain, Muscle aches Hematologic/lymphatic: DENIES: Bruising Psychiatric: DENIES: Confusion (Suzette Bolden) GI Exam Vitals I&O Vital Signs Date Time Temp Pulse Resp B/P Pulse Ox O2 Delivery O2 Flow Rate FiO2 08/06/16 09:15 98.3 87 20 162/82 94 08/06/16 07:58 127 08/06/16 07:36 97.9 86 22 158/74 95 08/06/16 07:30 97.9 86 22 158/74 95 08/06/16 06:08 98.2 87 18 147/70 95 08/06/16 05:36 98.1 87 18 118/76 08/06/16 04:22 98.2 92 20 162/82 94 08/06/16 04:04 97.9 93 20 152/83 95 08/06/16 04:00 97.8 103 22 151/87 95 08/06/16 03:52 98.1 92 20 152/80 95 08/06/16 02:50 92 08/06/16 00:00 98.4 102 22 135/85 95 08/05/16 22:46 98.4 87 16 145/64 99 Room Air 08/05/16 22:34 16 98 Room Air 08/05/16 17:10 98.2 91 16 134/71 96 Laboratory Test 08/05/16 08/05/16 08/06/16 08/06/16 19:35 23:00 00:06 01:51 Prothrombin Time 12.0 SEC Prothromb Time International 1.1 RATIO Ratio Activated Partial 26.4 SEC Thromboplast Time Sodium Level 143 MEQ/L Potassium Level 4.2 MEQ/L Chloride Level 110 MEQ/L Carbon Dioxide Level 24.3 MEQ/L Anion Gap 9 MEQ/L Blood Urea Nitrogen 79 MG/DL Creatinine 3.66 MG/DL Estimat Glomerular Filtration 16 ML/MIN Rate Random Glucose 99 MG/DL Calcium Level 8.6 MG/DL Total Bilirubin 0.5 MG/DL Aspartate Amino Transf 22 U/L (AST/SGOT) Alanine Aminotransferase 20 U/L (ALT/SGPT) Alkaline Phosphatase 153 U/L Total Protein 8.3 GM/DL Albumin 2.1 GM/DL White Blood Count 10.0 TH/MM3 9.0 TH/MM3 Red Blood Count 3.32 MIL/MM3 3.13 MIL/MM3 Hemoglobin 8.3 GM/DL 7.8 GM/DL Hematocrit 26.9 % 25.9 % Mean Corpuscular Volume 81.1 FL 82.6 FL Mean Corpuscular Hemoglobin 24.9 PG 25.0 PG Mean Corpuscular Hemoglobin 30.7 % 30.2 % Concent Red Cell Distribution Width 20.8 % 20.8 % Platelet Count 243 TH/MM3 242 TH/MM3 Mean Platelet Volume 7.3 FL 7.4 FL Neutrophils (%) (Auto) 81.1 % 79.3 % Lymphocytes (%) (Auto) 8.7 % 11.0 % Monocytes (%) (Auto) 7.3 % 6.7 % Eosinophils (%) (Auto) 2.2 % 2.4 % Basophils (%) (Auto) 0.7 % 0.6 % Neutrophils # (Auto) 8.1 TH/MM3 7.2 TH/MM3 Lymphocytes # (Auto) 0.9 TH/MM3 1.0 TH/MM3 Monocytes # (Auto) 0.7 TH/MM3 0.6 TH/MM3 Eosinophils # (Auto) 0.2 TH/MM3 0.2 TH/MM3 Basophils # (Auto) 0.1 TH/MM3 0.1 TH/MM3 CBC Comment AUTO DIFF DIFF FINAL Differential Comment AUTO DIFF CONFIRMED Platelet Estimate NORMAL Platelet Morphology Comment NORMAL Tear Drop Cells 1+ Ovalocytes 1+ Acanthocytes OCC Blood Type AB POSITIVE Antibody Screen NEGATIVE Urine Color LIGHT-YELLOW Urine Turbidity CLOUDY Urine pH 6.0 Urine Specific Richardson 1.010 Urine Protein 30 mg/dL Urine Glucose (UA) NEG mg/dL Urine Ketones NEG mg/dL Urine Occult Blood MOD Urine Nitrite NEG Urine Bilirubin NEG Urine Urobilinogen LESS THAN 2.0 MG/DL Urine Leukocyte Esterase LARGE Urine RBC 11 /hpf Urine WBC /hpf Urine WBC Clumps MANY Urine Squamous Epithelial <1 /hpf Cells Urine Bacteria OCC /hpf Urine Mucus FEW /lpf Microscopic Urinalysis Comment CULTURE INDICATED Test 08/06/16 08/06/16 08/06/16 01:56 02:49 10:45 Sodium Level 146 MEQ/L Potassium Level 3.8 MEQ/L Chloride Level 113 MEQ/L Carbon Dioxide Level 24.2 MEQ/L Anion Gap 9 MEQ/L Blood Urea Nitrogen 80 MG/DL Creatinine 3.32 MG/DL Estimat Glomerular Filtration 18 ML/MIN Rate Random Glucose 100 MG/DL Calcium Level 8.3 MG/DL Crossmatch Leukocyte-Reduced Red Blood Cells Blood Bank Comment Hemoglobin 9.3 GM/DL Hematocrit 29.5 % Date/Time Procedure Status Source Growth 08/06/16 00:06 Urine Culture Received Urine Clean Catch Pending Physical Examination HEENT: Normocephalic; atraumatic; no jaundice. CHEST: CTA CARDIAC: RRR ABDOMEN: Soft, nondistended, nontender; no hepatosplenomegaly; bowel sounds are present in all four quadrants. EXTREMITIES: No clubbing, cyanosis, or edema. SKIN: Normal; no rash; no jaundice. STATEMENT REQUEST CLERK: No focal deficits; alert and oriented times three. (Suzette Bolden) Assessment and Plan Plan ASSESSMENT: - Anemia. Pt was recently hospitalized and evaluated by our service for anemia. EGD/colonoscopy (07/16/16) and this revealed 1. There was erythematous gastritis in the gastric antrum; multiple biopsies were performed 2. Normal endoscopy otherwise 3. Retroflexed views revealed no abnormalities. 1. Two large pedunculated polyps were found in the distal transverse colon; Adenomatous; polypectomy was performed using snare cautery 2. Moderate diverticulosis was noted throughout the entire examined colon 3. Medium sized abnormal mucosa was found in the rectum; The mucosa was erythematous, friable and nodular; multiple biopsies were performed 4. The colon mucosa was otherwise normal 5. Retroflexed views revealed no abnormalities 6. Revealed no abnormalities of the rectum 7. Early decubitus ulcer noted in the coccyx area. Pathology revealed stomach antrum with severe chronic active gastritis with intestinal metaplasia, negative for Helicobacter pylori, colon transverse with tubulovillous adenoma , fragments, colon rectum with ulcerated colonic mucosa with marketed acute and chronic lymphoplasma cellular inflammation and architectural distortion suggestive of rectal prolapse (solitary rectal ulcer). The gastric biopsies demonstrated a marketed chronic active gastritis which is most commonly associated with Helicobacter pylori infection. The negative Cecilio stain does not completely exclude the possibility of infection as this may be related to sampling error or previous treatment. He was then seen in the office by Dr. Rajput yesterday as outpatient and it was recommended that he have an H/H rechecked in 2-3 weeks and if still anemic, to consider capsule endoscopy. He was sent for anemia. HH was 9.6/31.4 on 07/20. Yesterday this was 8.3/26.9. S/P 2 units PRBC, HH 9.3/29.5. No active bleeding. Of note, does have chronic kidney disease. GI consulted for opinion on restarting Eliquis. - Atrial fibrillation. Eliquis on hold for GI clearance. - Acute on CKD. Creat 3.32, worse from baseline. - HTN, CAD per primary PLAN: - Heart healthy diet, renal diet. - PPI - Stool for H. Pylori Ag - Monitor HH - Transfuse as necessary - Consider capsule endoscopy as outpatient - Supportive care - Further recommendations as far as resuming Eliquis to follow after patient seen by Dr. Lugo (Suzette Bolden) Physician Comments SEEN, EXAMINED AGREE WITH ABOVE CONSIDER HEMATOLOGY CONSULT OK TO START ANTICOAGULATION FORM GI POINT IF CLINICALLY INDICATED (Sylvia Lugo MD) Suzette Bolden Aug 06, 2016 13:27 Sylvia Lugo MD Aug 06, 2016 16:40
[2016-08-06 14:24] LABS: HEMATOCRIT 30.9 % (39.0-51.0); REVIEW FLAG FINAL
--- NOTE | 2016-08-06 18:24 | HHI.PR ---
Addendum to Inpatient Note Addendum Reason: Additional Documentation Additional Information Patient seen and examined. Patient denies any bloody stools or pain. He is ready to go back to rehab. Patient seen by GI, recommends stool for H pylori, Out patient Capsular EGD, Dr. Lugo will continue to follow. Additional orders HERBERTH on CKD Creatine 3.3, Add NS @ 84ml/Hr, labs in AM GI bleed: Cont GI recommendations, H&H stable, hold eliquis until ok with GI SVT: consult cardiology, Dr. Vines is his cupola mechanic, 2d echo pending, cont to monitor tele Written by GRACIA Kong acting as scribe for Dr. Silva on 08/06/16 at 17: 36. Floridalma Singleton Aug 06, 2016 18:24
[2016-08-06] MEDS: SODIUM CHLOR 0.9% 1000 ML INJ 1,000 ML IV SCH (19:19)
[2016-08-06 20:14] LABS: HEMATOCRIT 30.4 % (39.0-51.0); REVIEW FLAG FINAL
--- NOTE | 2016-08-06 21:01 | EC ---
Study Study Date:08/06/2016 STUDY CONCLUSIONS SUMMARY - Left ventricle: The cavity size was mildly dilated. Wall thickness was increased in a pattern of mild LVH. Systolic function was at the lower limits of normal. The estimated ejection fraction was 50%. Wall motion was normal; there were no regional wall motion abnormalities. - Mitral valve: Moderate regurgitation. - Left atrium: The atrium was dilated. - Right atrium: The atrium was severely dilated. - Tricuspid valve: Moderate regurgitation. - Pulmonary arteries: Systolic pressure was moderately increased. PA peak pressure: 66mm Hg (S). If LV function is below 40, please consider prescribing an ACEI or ARB or document rationale for non-use. PROCEDURE DATA STUDY STATUS: Elective. Procedure: Transthoracic echocardiography. Image quality was good. Scanning was performed from the parasternal, apical, and subcostal acoustic windows. Study completion: The patient tolerated the procedure well. Transthoracic echocardiography. M-mode, complete 2D, complete spectral Doppler, and color Doppler. Patient status: Inpatient. CARDIAC ANATOMY LEFT VENTRICLE: The cavity size was mildly dilated. Wall thickness was increased in a pattern of mild LVH. Systolic function was at the lower limits of normal. The estimated ejection fraction was 50%. Wall motion was normal; there were no regional wall motion abnormalities. AORTIC VALVE: Trileaflet; normal thickness leaflets. Doppler: Transvalvular velocity was within the normal range. There was no stenosis. No regurgitation. Peak gradient: 11mm Hg (S). AORTA: Aortic root: The aortic root was normal in size. MITRAL VALVE: Structurally normal valve. Doppler: Transvalvular velocity was within the normal range. There was no evidence for stenosis. Moderate regurgitation. Peak gradient: 3mm Hg (D). LEFT ATRIUM: The atrium was dilated. RIGHT VENTRICLE: The cavity size was normal. Wall thickness was normal. PULMONIC VALVE: Doppler: Transvalvular velocity was within the normal range. There was no evidence for stenosis. No regurgitation. TRICUSPID VALVE: Structurally normal valve. Doppler: Transvalvular velocity was within the normal range. Moderate regurgitation. PULMONARY ARTERY: The main pulmonary artery was normal-sized. Systolic pressure was moderately increased. RIGHT ATRIUM: The atrium was severely dilated. PERICARDIUM: There was no pericardial effusion. SYSTEMIC VEINS: Inferior vena cava: The vessel was normal in size. BASIC MEASUREMENTS ADULT Normal Left ventricle LV internal dimension, ED, chordal level, *52.2 mm 43-52 PLAX LV internal dimension, ES, chordal level, *43 mm 23-38 PLAX Fractional shortening, chordal level, PLAX *18 % >29 LV posterior wall thickness, ED 7.84 mm IVS/LVPW ratio, ED *1.71 <1.3 Ventricular septum Septal thickness, ED 13.4 mm Aortic valve Leaflet separation 20 mm 15-26 Left atrium Anterior-posterior dimension 59 mm Right ventricle RV internal dimension, ED, PLAX 22.6 mm 19-38 BASIC MEASUREMENTS ADULT Normal Aortic valve Leaflet separation 20 mm 15-26 Aorta Root diameter, ED 35 mm 20-37 DOPPLER MEASUREMENTS ADULT Normal Main pulmonary artery Pressure, S *66 mm Hg =30 Aortic valve Peak velocity, S 166 cm/s Peak gradient, S 11 mm Hg Mitral valve Peak E-wave velocity 90.1 cm/s Peak gradient, D 3 mm Hg Tricuspid valve Regurgitant peak velocity 339 cm/s Peak RV-RA gradient, S 46 mm Hg Maximal regurgitant velocity 339 cm/s Systemic veins Estimated CVP 20 mm Hg Right ventricle RV pressure, S *66 mm Hg <30 LEGEND: Mean values are shown as u=mean value. Asterisk (*) villeda values outside specified normal range. Prepared and signed by Wilma Vines [id number]
--- NOTE | 2016-08-06 22:37 | MB ---
cc: RIKY MIN DATE OF CONSULTATION: 08/06/2016 HISTORY OF PRESENT ILLNESS Mr. Ling is a very pleasant 89-year-old white male with a history of hypertension, coronary artery disease, atrial fibrillation and chronic kidney disease. He noted blood in his stool at his rehabilitation facility. He was admitted for GI evaluation. He has had no chest pain, shortness of breath, PND, orthopnea, peripheral edema, palpitations, dizziness, lightheadedness, or syncope. He was found to have acute exacerbation of his chronic kidney disease. He was also found to be anemic. PAST MEDICAL HISTORY Positive for - 1. Hypertension. 2. Coronary artery disease. 3. Atrial fibrillation. 4. Chronic kidney disease stage III. 5. Obstructive uropathy. 6. Radiation proctitis. 7. Status post prostate cancer treatments. 8. Decubitus ulcer. 9. Chronic venostasis. MEDICATIONS 1. Tylenol p.r.n. 2. Hydrocortisone. 3. Magnesium hydroxide. 4. Amlodipine 5 mg a day. 5. Hydralazine 25 mg t.i.d. 6. Silver sulfadiazine. 7. Multivitamin. 8. Aspirin 81 mg a day. 9. Omeprazole. 10. Vitamin C. 11. Cholecalciferol. ALLERGIES NONE. SOCIAL HISTORY The patient does not smoke. He does not drink alcohol. He has been in rehabilitation, prior to that he was living with his daughter and his . FAMILY HISTORY Negative for heart disease. REVIEW OF SYSTEMS Otherwise negative. PHYSICAL EXAMINATION VITAL SIGNS: Blood pressure 162/82, pulse 87 and irregular. HEAD, EYES, EARS, NOSE, AND THROAT: Negative. NECK: 2+ carotid upstrokes. No bruits. LUNGS: Clear. HEART: Iregular, irregular with no murmur, gallop or rub. ABDOMEN: Soft. No bruits. EXTREMITIES: Trace edema. 1+ distal pulses. Chronic venostasis in lower extremities with dark discoloration. NEUROLOGIC: Exam is grossly nonfocal. EKG was reviewed and showed atrial fibrillation with controlled ventricular response, PVCs, normal axis and otherwise normal intervals. LABORATORY DATA Hemoglobin 7.8 and 9.5, potassium 3.8, creatinine 3.3, AST/ALT normal DIAGNOSES 1. Possible GI bleeding. 2. Acute exacerbation of chronic kidney disease. 3. Chronic atrial fibrillation. 4. Hypertension. 5. Coronary artery disease. 6. Obstructive uropathy. 7. Decubitus ulcer. DISPOSITION Mr. Ling will be monitored on telemetry. His Eliquis is on hold and he was transfused. He is undergoing a GI evaluation. I recommend to restart his anticoagulation with Eliquis to decrease the chance of stroke with chronic atrial fibrillation. I will follow him for cardiology during his hospitalization. I will also see back for followup in our office after discharge. MD FANTASMA Garcia/BJDong /6:31 PM /9:58 PM MTDD
[2016-08-07 03:45] VITALS: BP 155/86; PULSE 88; RESP 20; TEMP 97.7; O2SAT 95
[2016-08-07] MEDS: SODIUM CHLOR 0.9% 1000 ML INJ 1,000 ML IV SCH ×3 (04:26→23:36)
[2016-08-07] MEDS ORDERED: DIATRIZOATE MEGLUM/DIATRIZOATE SOD 9 ML CUP PO ONE (07:00)
[2016-08-07 08:09] VITALS: BP_SYST 159; BP_SYST 160; BP_DIAS 101; BP_DIAS 89; PULSE 89; RESP 20; TEMP 97.8; O2SAT 94
[2016-08-07] MEDS: SODIUM CHLORIDE 0.9% FLUSH 10 ML FLUSH IV FLUSH SCH ×2 (09:00→21:00)
[2016-08-07] MEDS ORDERED: CYANOCOBALAMIN 1000 MCG/ML VIAL SQ ONE (09:30)
[2016-08-07 10:10] LABS: AUTOMATED NEUTROPHIL # 7.2 TH/MM3 (1.8-7.7); BASOPHIL % 0.5 % (0.0-2.0); EOSINOPHIL # 0.2 TH/MM3 (0-0.4); HEMATOCRIT 28.1 % (39.0-51.0); HEMO FLAGS DIFF FINAL; LYMPH % 8.2 % (9.0-44.0); LYMPHOCYTE # 0.7 TH/MM3 (1.0-4.8); MEAN CELL VOLUME 82.4 FL (80.0-100.0); MEAN CORPUSCULAR HGB CONC 31.6 % (32.0-36.0); MONO % 6.2 % (0.0-8.0); NEUT % 83.1 % (16.0-70.0); PLATELET COUNT 213 TH/MM3 (150-450); RED BLOOD COUNT 3.41 MIL/MM3 (4.50-5.90); RED CELL DISTRIBUTION WIDTH 19.8 % (11.6-17.2); WHITE BLOOD COUNT 8.7 TH/MM3 (4.0-11.0)
[2016-08-07 10:39] LABS: BICARBONATE 21.5 MEQ/L (21.0-32.0); POTASSIUM 3.6 MEQ/L (3.5-5.1)
[2016-08-07] MEDS ORDERED: IRON SUCROSE INJ 100 MG in SODIUM CHLORIDE 0.9% INJ 100 ML IV ONE (11:00)
--- NOTE | 2016-08-07 11:21 | MB ---
cc: MAISHA PAZ MD, RUBY ANNE E. M.D. DATE OF CONSULTATION: 08/07/[address] Maisha Paz. CHIEF COMPLAINT Dr. Paz requested consultation for Mr. Ling regarding anemia. HISTORY OF PRESENT ILLNESS Mr. Ling is a 89-year-old man with multiple medical problems. He has history of hypertension, coronary artery disease, atrial fibrillation and chronic anemia. Review of the electronic medical record shows anemia dating back to January of 2016. Iron studies were obtained that shows consistent with iron deficiency. His last endoscopy and colonoscopy showed gastritis. He also had tubulovillous adenoma in the transverse colon. His rectum with ulcerated colonic mucosa because of rectal prolapse. He was brought into the emergency room with complaints of abnormal lab results. His hemoglobin was 8.3. Followup hemoglobin was 7.8. He denies any overt GI bleeding. However, he was microcytic in nature. He was transfused 2 units of packed red cells and hemoglobin stayed stable at 9.8. There seems to be no other signs of bleeding. Hematology/Oncology is consulted for the anemia. His white blood cell count and platelet count are normal. Complicating his course is atrial fibrillation for which he is on aspirin. There is reports on record that he was on Eliquis before. It was not on his intake sheet. Gastroenterology recommended holding the Eliquis until resolution of his gastritis. He has a decubitus wound. Denies any bleeding related to that. He feels that is getting better. He has senile purpura of his arms. He has decrease in performance status. He reports that he is able to transfer out of bed into a chair independently. He is noted during the last admission to have worsening renal insufficiency. His creatinine continues to worsen during the current admission. His estimated glomerular filtration rate down to 18%. Denies any headaches, no vision changes. He admits to having forgetfulness. He is requesting I call his daughter Carlota to explain his medical situation. PAST MEDICAL HISTORY 1. Hypertension. 2. Coronary artery disease. 3. Atrial fibrillation. 4. Chronic kidney disease. 5. Obstructive uropathy. 6. Radiation proctitis. 7. Decubitus ulcer. 8. Chronic venostasis. 9. History of prostate cancer treated. FAMILY HISTORY Mother of old age at 95. Father of coronary disease at 65. SOCIAL HISTORY He lives at [facility]. Denes any tobacco, alcohol or illicit drug use currently. His is a teacher. PHYSICAL EXAMINATION VITAL SIGNS: Temperature 97.8, heart rate 89, respiratory rate 20, blood pressure 159/89, saturation 94%. GENERAL: Mr. Ling is an elderly well-developed man. HEENT: His pupils are round, reactive to light and accommodation. Scalp with dry crust at the top of his scalp. He reports that these are resected skin cancer. NECK: Supple. LUNGS: Lungs are clear anteriorly. CARDIOVASCULAR: Exam reveals a rate-controlled rhythm. ABDOMEN: Abdomen is large and benign. EXTREMITIES: Lower extremity with chronic venous changes, dry skin, senile purpuric lesions. LABORATORY DATA BUN of 80, creatinine 3.32, hemoglobin 9.8, platelet count 242, white blood cell count 9.0. ASSESSMENT/PLAN Mr. Ling is a 89-year-old man with multiple medical problems. He has a normocytic anemia previously microcytic just from a month ago. Iron studies are consistent with iron deficiency from January of 2016. Does not appear that he was treated for his iron deficiency. His condition worsened with the finding of gastritis and rectal ulcer. He denies any overt loss of blood. However, I suspect that the decrease in hemoglobin is due to the chronic iron deficiency. He has been transfused 2 units of packed red cells. We discussed replacing his iron deficit with parenteral iron therapy. Given the use of the proton pump inhibitor, he would be unable to absorb oral iron efficiently. Furthermore, we need more prompt response in increase in his hemoglobin. He needs to stay on his GI regimen for the gastritis to resolve. I concur with gastroenterology. His Eliquis will likely need to be held until his gastritis has resolved. We will see that his hemoglobin has remained stable. The risk and benefit of competing needs was explained to Mr. Ling and his daughter Carlota after the consultation. The family expressed concerns about the Eliquis given that he is 89. Furthermore, worsened renal insufficiency which makes it more dangerous to continue treatment with Eliquis. We discussed lastly that underlying bone marrow disorder cannot be excluded. The incidence of myelodysplasia increases with age. For now I recommend the empiric trial of parenteral iron therapy is see if that resolves his anemia completely. B12 is offered to enhance his hematopoiesis. Gastroenterology is following. His unitizer Dr. Vines is following as well. MD SALVADOR Shoemaker/SHAN /9:23 AM /10:42 AM
--- NOTE | 2016-08-07 11:25 | RADRPT ---
EXAM DATE/TIME: 08/07/2016 10:30 [place] COMPARISON: US KIDNEY/RENAL/BLADDER, July 14, 2016, 16:34. US KIDNEY/RENAL/BLADDER, July 16, 2016, 21:32. INDICATIONS : Evaluate reason for anemia ORAL CONTRAST: Prescribed oral contrast ingested. RADIATION DOSE: 16.43 CTDIvol (mGy) MEDICAL HISTORY : Hypertension. Renal failure, chronic. SURGICAL HISTORY : None. ENCOUNTER: Initial ACUITY: 1 day PAIN SCALE: 0/10 LOCATION: abdomen TECHNIQUE: Volumetric scanning of the abdomen and pelvis was performed. Using automated exposure control and ad justment of the mA and/or kV according to patient size, radiation dose was kept as low as reasonably achievable to obtain optimal diagnostic quality images. FINDINGS: CT Abdomen: The pancreas is atrophic with 2 separate cystic masses one near the head of the pancreas measuring 3.7 cm in size and one near the body of the pancreas measuring 3.1 cm in size. Bilateral hy dronephrosis in both kidneys with probable parapelvic cyst as well. The liver, spleen, kidneys, adren als are unremarkable. There is no evidence for any appreciable pathological adenopathy, free fluid, o r bowel obstruction. The gallbladder demonstrates multiple stones without gallbladder wall thickenin g, or pericholecystic fluid. Chronic vascular calcifications are present involving the aorta, iliac a rteries with slight AAA measuring 3.6 cm in AP diameter. CT pelvis: There is no evidence for mass, abscess formation, or any significant adenopathy within the pelvis. There is moderate amount of stool throughout the colon. There are degenerative changes and p ossible bulging discs in the lower lumbosacral spine not adequately characterized. CONCLUSION: 1. Bilateral hydronephrosis and probable parapelvic cysts. 2. Cholelithiasis. 3. There are cystic masses near the head of the pancreas and body of the pancreas and the pancreas is atrophic. Further characterization with abdominal MRI is suggested if indicated clinically. 4. Slight AAA. Ezio Ferraro MD on August 07, 2016 at 11:18 Board Certified Radiologist. This report was verified electronically.
[2016-08-07] MEDS ORDERED: SILVER SULFADIAZINE 1% CR 50 GM JAR TOPICAL PRN (12:00)
--- NOTE | 2016-08-07 12:18 | HHI.PR ---
Subjective Remarks Follow-up for anemia and possible GI bleeding. The patient is doing well today and has no acute complaints. He denies any further bleeding. He denies any dysuria or urinary frequency. He is not sure why he was dehydrated on admission. He would like to go back to rehabilitation at [facility] He verbalizes understanding of the need to hold Eliquis until hemoglobin stabilizes. Objective Vitals Vital Signs Date Time Temp Pulse Resp B/P Pulse Ox O2 Delivery O2 Flow Rate FiO2 08/07/16 08:09 97.8 89 20 159/89 94 08/07/16 03:45 97.7 88 20 155/86 95 08/06/16 23:44 98.6 84 22 168/80 96 08/06/16 19:58 98.6 90 20 136/73 97 I/O 08/06/16 08/06/16 08/06/16 08/07/16 08/07/16 08/07/16 07:00 15:00 23:00 07:00 15:00 23:00 Intake Total 480 ml 960 ml Balance 480 ml 960 ml Intake Oral 480 ml 960 ml # Voids 2 2 # Bowel Movements 3 1 Result Diagram: 08/07/16 0930 08/07/16 0930 Imaging Last Impressions Abdomen/Pelvis CT 08/07/16 0000 Signed Impressions: Service Date/Time: July 10:30 - CONCLUSION: 1. Bilateral hydronephrosis and probable parapelvic cysts. 2. Cholelithiasis. 3. There are cystic masses near the head of the pancreas and body of the pancreas and the pancreas is atrophic. Further characterization with abdominal MRI is suggested if indicated clinically. 4. Slight AAA. Ezio Ferraro MD Objective Remarks GENERAL: Well-developed well-nourished. In no acute distress. SKIN: Warm and dry. No lesions noted. HEENT: Normocephalic. Pupils equal and round. Mucous membranes pink and moist. CARDIOVASCULAR: Regular rate and rhythm. No murmur appreciated. RESPIRATORY: No accessory muscle use. Clear to auscultation. Breath sounds equal bilaterally. GASTROINTESTINAL: Abdomen soft, non-tender, nondistended. Bowel sounds x4. MUSCULOSKELETAL: No obvious deformities. No clubbing or cyanosis. No edema. NEUROLOGICAL: Awake and alert. No focal neurological deficits. Moves upper and lower extremities spontaneously. Normal speech. PSYCHIATRIC: Appropriate mood and affect; insight and judgment normal. A/P Assessment and Plan 89-year-old male with a past medical history of HTN, CAD, A. fib, CKD, Hx prostate cancer with obstructive uropathy and radiation proctitis who is sent from [facility] for possible GI bleeding Anemia, normocytic, iron deficiency Hemoglobin 7.8 at admission, transfuse 2 units PRBCs and hemoglobin did increase to 9.8, but has decreased to 8.9 today. -Hematology consulted and ordered B12 and iron transfusion -Follow up CBC -Hematology recommends holding Eliquis until gastritis improves. Possible GI bleeding Patient with recent EGD and colonoscopy last month which showed gastritis and abnormal, friable colon mucosa. -GI consulted and ordered abdominal CT and hematology consult -May need capsule endoscopy as outpatient -PPI HERBERTH on CKD Creatinine 3.66 on admission, previously 2.05 on 07/21/16. Possibly prerenal secondary to anemia/blood loss vs postrenal due to history of obstructive uropathy. Hemoglobin improving to 3.15 with IVF. -Continue IVF and follow-up BMP. Abnormal UA Patient denies any urinary symptoms. Afebrile with no leukocytosis. -Hold off on antibiotics for now on follow-up urine culture. SVT/history of A. fib: Echocardiogram with mild LVH, systolic function within normal limits, EF 50%. Patient's [facility] former, Dr. Vines consulted, recommends resuming Eliquis. Monitor on telemetry. Hypertension: Chronic. Resume home amlodipine and hydralazine with holding parameters. Monitor. DVT prophylaxis: SCDs. No chemical prophylaxis with anemia/possible bleeding as above. Discharge Planning With decreasing hemoglobin, increased creatinine, possible urinary infection, and continued infusions for anemia will admit to inpatient for further treatment. Bennie Booth Aug 07, 2016 12:18
[2016-08-07] MEDS ORDERED: APIX5TAB PO (12:27)
[2016-08-07] MEDS: amLODIPine BESYLATE 5 MG TAB PO SCH (12:51)
[2016-08-07] MEDS: hydrALAZINE HCL 25 MG TAB PO SCH ×2 (12:51→18:14)
[2016-08-07 12:58] VITALS: PULSE 82
[2016-08-07 13:26] VITALS: BP 158/73; PULSE 90; RESP 20; TEMP 97.7; O2SAT 93
--- NOTE | 2016-08-07 14:20 | PD.CARD.PN ---
Subjective Subjective Remarks No CP or SOB, wishes to be discharged soon Objective Medications Current Medications Medications (Trade) Dose Ordered Sig/Constance Route Start Time Stop Time Status Last Admin (NS Flush) 2 ml UNSCH PRN IV FLUSH 08/05/16 21:45 (NS Flush) 2 ml BID IV FLUSH 08/06/16 09:00 08/06/16 09:45 (Zofran Inj) 4 mg Q6H PRN IVP 08/05/16 21:45 Naloxone HCl 0.4 mg 0.4 mg UNSCH PRN IV 08/05/16 21:45 (NS 1000 ml Inj) 1,000 ml @ 100 mls/hr Q10H IV 08/06/16 18:00 08/07/16 14:12 (Norvasc) 10 mg DAILY PO 08/07/16 12:00 08/07/16 12:51 (Apresoline) 25 mg TID PO 08/07/16 13:00 08/07/16 12:51 (Protonix) 40 mg DAILY PO 08/08/16 09:00 (Silvadene 1% Cream (50 Gm)) 1 applic DAILY PRN TOPICAL 08/07/16 12:00 (Trimox) 500 mg TID PO 08/07/16 18:00 Vital Signs / I&O Vital Signs Date Time Temp Pulse Resp B/P Pulse Ox O2 Delivery O2 Flow Rate FiO2 08/07/16 13:26 97.7 90 20 158/73 93 08/07/16 12:58 82 08/07/16 08:09 97.8 89 20 159/89 94 08/07/16 03:45 97.7 88 20 155/86 95 08/06/16 23:44 98.6 84 22 168/80 96 08/06/16 19:58 98.6 90 20 136/73 97 I/O 08/06/16 08/06/16 08/06/16 08/07/16 08/07/16 08/07/16 07:00 15:00 23:00 07:00 15:00 23:00 Intake Total 480 ml 960 ml Balance 480 ml 960 ml Intake Oral 480 ml 960 ml # Voids 2 2 # Bowel Movements 3 1 Physical Exam GENERAL: In NAD SKIN: Warm and dry. HEAD: Normocephalic. EYES: No scleral icterus. No injection or drainage. NECK: Supple, trachea midline. No JVD or lymphadenopathy. CARDIOVASCULAR: Irregular rate and rhythm without murmurs, gallops, or rubs. RESPIRATORY: Breath sounds equal bilaterally. No accessory muscle use. GASTROINTESTINAL: Abdomen soft, non-tender, nondistended. MUSCULOSKELETAL: No cyanosis, or edema. Laboratory Laboratory Tests Test 08/06/16 08/07/16 20:02 09:30 Hemoglobin 9.8 GM/DL 8.9 GM/DL Hematocrit 30.4 % 28.1 % White Blood Count 8.7 TH/MM3 Red Blood Count 3.41 MIL/MM3 Mean Corpuscular Volume 82.4 FL Mean Corpuscular Hemoglobin 26.0 PG Mean Corpuscular Hemoglobin 31.6 % Concent Red Cell Distribution Width 19.8 % Platelet Count 213 TH/MM3 Mean Platelet Volume 7.5 FL Neutrophils (%) (Auto) 83.1 % Lymphocytes (%) (Auto) 8.2 % Monocytes (%) (Auto) 6.2 % Eosinophils (%) (Auto) 2.0 % Basophils (%) (Auto) 0.5 % Neutrophils # (Auto) 7.2 TH/MM3 Lymphocytes # (Auto) 0.7 TH/MM3 Monocytes # (Auto) 0.5 TH/MM3 Eosinophils # (Auto) 0.2 TH/MM3 Basophils # (Auto) 0.0 TH/MM3 CBC Comment DIFF FINAL Differential Comment Sodium Level 146 MEQ/L Potassium Level 3.6 MEQ/L Chloride Level 115 MEQ/L Carbon Dioxide Level 21.5 MEQ/L Anion Gap 10 MEQ/L Blood Urea Nitrogen 69 MG/DL Creatinine 3.15 MG/DL Estimat Glomerular Filtration 19 ML/MIN Rate Random Glucose 105 MG/DL Calcium Level 8.3 MG/DL Imaging Last Impressions Abdomen/Pelvis CT 08/07/16 0000 Signed Impressions: Service Date/Time: July 10:30 - CONCLUSION: 1. Bilateral hydronephrosis and probable parapelvic cysts. 2. Cholelithiasis. 3. There are cystic masses near the head of the pancreas and body of the pancreas and the pancreas is atrophic. Further characterization with abdominal MRI is suggested if indicated clinically. 4. Slight AAA. K. Manuel Ferraro MD Assessment and Plan Problem List: (1) Anemia (2) GI bleed (3) Acute kidney injury superimposed on chronic kidney disease (4) HTN (hypertension) (5) Atrial fibrillation Assessment and Plan Continue monitoring. Renal fx improving, but still significantly impaired. Resume Eliquis 2.5 mg BID once Hgb stable. Increase activity. Problem Qualifiers (1) Anemia: Qualified Code: D64.9 - Anemia, unspecified type (2) GI bleed: Qualified Code: K92.2 - Gastrointestinal hemorrhage, unspecified gastrointestinal hemorrhage type Wilma Vines MD Aug 07, 2016 14:20
--- NOTE | 2016-08-07 14:39 | HHI.GIFU ---
Subjective Remarks Pt resting in bed comfortably and talking on phone. He is [employer]. Denies n/v , bleeding, diarrhea, abdominal pain. (Maine Mueller) Objective Vitals I&O Vital Signs Date Time Temp Pulse Resp B/P Pulse Ox O2 Delivery O2 Flow Rate FiO2 08/07/16 13:26 97.7 90 20 158/73 93 08/07/16 12:58 82 08/07/16 08:09 97.8 89 20 159/89 94 08/07/16 03:45 97.7 88 20 155/86 95 08/06/16 23:44 98.6 84 22 168/80 96 08/06/16 19:58 98.6 90 20 136/73 97 I/O 08/06/16 08/06/16 08/06/16 08/07/16 08/07/16 08/07/16 07:00 15:00 23:00 07:00 15:00 23:00 Intake Total 480 ml 960 ml Balance 480 ml 960 ml Intake Oral 480 ml 960 ml # Voids 2 2 # Bowel Movements 3 1 Laboratory Laboratory Tests Test 08/06/16 08/07/16 20:02 09:30 Hemoglobin 9.8 8.9 Hematocrit 30.4 28.1 White Blood Count 8.7 Red Blood Count 3.41 Mean Corpuscular Volume 82.4 Mean Corpuscular Hemoglobin 26.0 Mean Corpuscular Hemoglobin 31.6 Concent Red Cell Distribution Width 19.8 Platelet Count 213 Mean Platelet Volume 7.5 Neutrophils (%) (Auto) 83.1 Lymphocytes (%) (Auto) 8.2 Monocytes (%) (Auto) 6.2 Eosinophils (%) (Auto) 2.0 Basophils (%) (Auto) 0.5 Neutrophils # (Auto) 7.2 Lymphocytes # (Auto) 0.7 Monocytes # (Auto) 0.5 Eosinophils # (Auto) 0.2 Basophils # (Auto) 0.0 CBC Comment DIFF FINAL Differential Comment Sodium Level 146 Potassium Level 3.6 Chloride Level 115 Carbon Dioxide Level 21.5 Anion Gap 10 Blood Urea Nitrogen 69 Creatinine 3.15 Estimat Glomerular Filtration 19 Rate Random Glucose 105 Calcium Level 8.3 Date/Time Procedure Status Source Growth 08/06/16 00:06 Urine Culture - Preliminary Resulted Urine Clean Catch Staphylococcus Aureus Imaging Last Impressions Abdomen/Pelvis CT 08/07/16 0000 Signed Impressions: Service Date/Time: July 10:30 - CONCLUSION: 1. Bilateral hydronephrosis and probable parapelvic cysts. 2. Cholelithiasis. 3. There are cystic masses near the head of the pancreas and body of the pancreas and the pancreas is atrophic. Further characterization with abdominal MRI is suggested if indicated clinically. 4. Slight AAA. KSherman Ferraro MD Physical Exam HEENT: EOMI; normocephalic; atraumatic; no jaundice. NECK: Neck is supple CHEST: Chest is clear to auscultation and percussion. CARDIAC: Regular rate and rhythm with no murmur gallop or rubs. ABDOMEN: Soft, obese, nontender; no hepatosplenomegaly; bowel sounds are present in all four quadrants. EXTREMITIES: No clubbing, cyanosis, or edema. SKIN: Normal; no rash; no jaundice. [employer]: No focal deficits; alert and oriented times three. (Maine Mueller) Assessment and Plan Plan ASSESSMENT: - Anemia. Pt was recently hospitalized and evaluated by our service for anemia. EGD/colonoscopy (07/16/16) and this revealed 1. There was erythematous gastritis in the gastric antrum; multiple biopsies were performed 2. Normal endoscopy otherwise 3. Retroflexed views revealed no abnormalities. 1. Two large pedunculated polyps were found in the distal transverse colon; Adenomatous; polypectomy was performed using snare cautery 2. Moderate diverticulosis was noted throughout the entire examined colon 3. Medium sized abnormal mucosa was found in the rectum; The mucosa was erythematous, friable and nodular; multiple biopsies were performed 4. The colon mucosa was otherwise normal 5. Retroflexed views revealed no abnormalities 6. Revealed no abnormalities of the rectum 7. Early decubitus ulcer noted in the coccyx area. Pathology revealed stomach antrum with severe chronic active gastritis with intestinal metaplasia, negative for Helicobacter pylori, colon transverse with tubulovillous adenoma , fragments, colon rectum with ulcerated colonic mucosa with marketed acute and chronic lymphoplasma cellular inflammation and architectural distortion suggestive of rectal prolapse (solitary rectal ulcer). The gastric biopsies demonstrated a marketed chronic active gastritis which is most commonly associated with Helicobacter pylori infection. The negative Cecilio stain does not completely exclude the possibility of infection as this may be related to sampling error or previous treatment. He was then seen in the office by Dr. Rajput yesterday as outpatient and it was recommended that he have an H/H rechecked in 2-3 weeks and if still anemic, to consider capsule endoscopy. He was sent for anemia. HH was 9.6/31.4 on 07/20. Today 8.9/28.1. S/P 2 units PRBC No active bleeding. Of note, does have chronic kidney disease. GI consulted for opinion on restarting Eliquis. - pancreatic masses CT 08/07/16 ---> bilateral hydronephrosis and probably parapelvic cysts, cholelithiasis, there are cystic masses near head of pancreas and body of pancreas and pancreas is atrophic. further characterization with abd MRI is suggested if indicated clinically - Atrial fibrillation. Eliquis on hold for GI clearance. - Acute on CKD. Creat 3.32, worse from baseline. - HTN, CAD per primary PLAN: - Heart healthy diet, renal diet. - CA 19-9 - PPI - Monitor HH - Transfuse as necessary - capsule endoscopy as outpatient - Supportive care - follow up in office - GI will sign off - recommendation to continue Eliquis after pt seen by Dr Lugo - This pt was seen by myself and Dr. Lugo and this note is written on her behalf (Maine Mueller) Physician Comments may need eus op to further evaluate for pancreatic abnormalities, he would like to discuss with his family about further work-up, due to his advance age ca 19-9, cea if dc fu office in 2-4 weeks (Sylvia Lugo MD) Maine Mueller Aug 07, 2016 14:39 Sylvia Lugo MD Aug 07, 2016 14:53
[2016-08-07 15:54] VITALS: BP 160/77; PULSE 77; RESP 20; TEMP 97; O2SAT 94
[2016-08-07] MEDS: AMOXICILLIN (TRIHYDRATE) 500 MG CAP PO SCH (18:14)
[2016-08-07 20:00] VITALS: BP 151/80; PULSE 80; PULSE 84; RESP 22; TEMP 96.2; O2SAT 95
[2016-08-08] VITALS (9 sets, daily range): BP systolic 130–181; BP diastolic 71–97; PULSE 63–90; RESP 18–24; TEMP 96.3–98.2; O2SAT 93–97
[2016-08-08] MEDS: SODIUM CHLOR 0.9% 1000 ML INJ 1,000 ML IV SCH (03:14)
[2016-08-08] MEDS ORDERED: cloNIDine HCL 0.1 MG TAB PO ONE (04:45)
[2016-08-08 06:02] LABS: AUTOMATED NEUTROPHIL # 7.8 TH/MM3 (1.8-7.7); BASOPHIL # 0.1 TH/MM3 (0-0.2); BASOPHIL % 0.7 % (0.0-2.0); EOSINOPHIL # 0.3 TH/MM3 (0-0.4); EOSINOPHIL % 2.9 % (0.0-4.0); HEMO FLAGS DIFF FINAL; LYMPH % 8.9 % (9.0-44.0); LYMPHOCYTE # 0.9 TH/MM3 (1.0-4.8); MEAN CELL VOLUME 81.7 FL (80.0-100.0); MEAN CORPUSCULAR HEMOGLOBIN 26.7 PG (27.0-34.0); MEAN CORPUSCULAR HGB CONC 32.7 % (32.0-36.0); MONO % 6.8 % (0.0-8.0); NEUT % 80.7 % (16.0-70.0); PLATELET COUNT 212 TH/MM3 (150-450); RED BLOOD COUNT 3.43 MIL/MM3 (4.50-5.90); RED CELL DISTRIBUTION WIDTH 20.2 % (11.6-17.2); WHITE BLOOD COUNT 9.7 TH/MM3 (4.0-11.0)
[2016-08-08 06:34] LABS: BICARBONATE 21.6 MEQ/L (21.0-32.0); POTASSIUM 3.7 MEQ/L (3.5-5.1)
[2016-08-08] MEDS: PANTOPRAZOLE SOD 40 MG DELAYED RELEASE TAB PO SCH (08:46)
[2016-08-08] MEDS: hydrALAZINE HCL 25 MG TAB PO SCH ×3 (08:46→21:54)
[2016-08-08] MEDS: AMOXICILLIN (TRIHYDRATE) 500 MG CAP PO SCH ×3 (08:46→18:37)
[2016-08-08] MEDS: SODIUM CHLORIDE 0.9% FLUSH 10 ML FLUSH IV FLUSH SCH ×2 (08:46→21:00)
[2016-08-08] MEDS: amLODIPine BESYLATE 5 MG TAB PO SCH (08:47)
[2016-08-08] MEDS: METOPROLOL TARTRATE 25 MG TAB PO SCH ×2 (08:47→21:54)
[2016-08-08] MEDS: SODIUM CHLOR 0.45% 1000 ML INJ 1,000 ML IV SCH ×2 (08:47→21:44)
--- NOTE | 2016-08-08 09:56 | PD.ONC.PN ---
Subjective Subjective Remarks Afebrile overnight. Eating breakfast. Denies pain. "I feel good today." Objective Data Date Time Temp Pulse Resp B/P Pulse Ox O2 Delivery O2 Flow Rate FiO2 08/08/16 07:25 97.8 90 22 164/85 96 08/08/16 05:59 89 148/74 08/08/16 04:39 96.3 90 18 181/97 97 08/08/16 00:00 97.0 87 22 172/90 96 08/07/16 20:00 96.2 84 22 151/80 95 08/07/16 20:00 80 08/07/16 15:54 97.0 77 20 160/77 94 08/07/16 13:26 97.7 90 20 158/73 93 08/07/16 12:58 82 08/08/16 08/08/16 08/08/16 07:00 15:00 23:00 Intake Total 928 ml Balance 928 ml Result Diagram: 08/08/16 0430 08/08/16 0430 Laboratory Results Laboratory Tests Test 08/08/16 04:30 White Blood Count 9.7 TH/MM3 Red Blood Count 3.43 MIL/MM3 Hemoglobin 9.2 GM/DL Hematocrit 28.0 % Mean Corpuscular Volume 81.7 FL Mean Corpuscular Hemoglobin 26.7 PG Mean Corpuscular Hemoglobin 32.7 % Concent Red Cell Distribution Width 20.2 % Platelet Count 212 TH/MM3 Mean Platelet Volume 7.5 FL Neutrophils (%) (Auto) 80.7 % Lymphocytes (%) (Auto) 8.9 % Monocytes (%) (Auto) 6.8 % Eosinophils (%) (Auto) 2.9 % Basophils (%) (Auto) 0.7 % Neutrophils # (Auto) 7.8 TH/MM3 Lymphocytes # (Auto) 0.9 TH/MM3 Monocytes # (Auto) 0.7 TH/MM3 Eosinophils # (Auto) 0.3 TH/MM3 Basophils # (Auto) 0.1 TH/MM3 CBC Comment DIFF FINAL Differential Comment Sodium Level 147 MEQ/L Potassium Level 3.7 MEQ/L Chloride Level 116 MEQ/L Carbon Dioxide Level 21.6 MEQ/L Anion Gap 9 MEQ/L Blood Urea Nitrogen 66 MG/DL Creatinine 2.92 MG/DL Estimat Glomerular Filtration 20 ML/MIN Rate Random Glucose 112 MG/DL Calcium Level 8.1 MG/DL CA 19-9 Antigen 21.4 U/ML Culture Results Microbiology Date/Time Procedure Status Source Growth 08/06/16 00:06 Urine Culture - Preliminary Resulted Urine Clean Catch Staphylococcus Aureus Administered Medications Medications (Trade) Dose Ordered Sig/Constance Route PRN Reason Start Time Stop Time Status Last Admin Dose Admin Sodium Chloride (NS Flush) 2 ml BID IV FLUSH 08/06/16 09:00 08/06/16 09:45 Amlodipine Besylate (Norvasc) 10 mg DAILY PO 08/07/16 12:00 08/08/16 08:47 Pantoprazole Sodium (Protonix) 40 mg DAILY PO 08/08/16 09:00 08/08/16 08:46 Amoxicillin 500 mg 500 mg TID PO 08/07/16 18:00 08/08/16 08:46 Sodium Chloride (1/2 NS 1000 ml Inj) 1,000 ml @ 84 mls/hr [id number] IV 08/08/16 07:30 08/08/16 08:47 Hydralazine HCl (Apresoline) 25 mg Q8HR PO 08/08/16 08:12 08/08/16 08:46 Metoprolol Tartrate (Lopressor) 25 mg Q12HR PO 08/08/16 09:00 08/08/16 08:47 Objective Remarks GENERAL: Elderly male, sitting up in bed in [facility]. SKIN: Warm and dry. HEAD: Normocephalic. EYES: No injection or drainage. NECK: Supple, trachea midline. CARDIOVASCULAR: Regular rate and rhythm RESPIRATORY: Breath sounds equal bilaterally. No accessory muscle use. GASTROINTESTINAL: Abdomen soft, non-tender, nondistended. EXTREMITIES: No cyanosis NEUROLOGICAL: awake and alert, normal speech Assessment/Plan Problem List: (1) Normocytic anemia Status: Acute Plan: --anemia dating back to January of 2016. -- last endoscopy and colonoscopy showed gastritis. also had tubulovillous adenoma in the transverse colon. --no obvious bleeding, on ASA for afib. --some question of whether he was also on Eliquis prior to admission --normocytic anemia previously microcytic just from a month ago. suspect that the decrease in hemoglobin is due to the chronic iron deficiency. --recommend the empiric trial of parenteral iron therapy is see if that resolves his anemia completely. B12 is offered to enhance his hematopoiesis. --GI following and recommends capsule endoscopy outpatient Assessment 89y/o with anemia. history of hypertension, coronary artery disease, atrial fibrillation and chronic anemia. Obstructive uropathy. Radiation proctitis. Decubitus ulcer. Chronic venostasis. History of prostate cancer treated. Plan 1. monitor CBC 2. monitor for bleeding. Attending Statement The exam, history, and the medical decision-making described in the above note were completed with the assistance of the mid-level provider. I reviewed and agree with the findings presented. I attest that I had a [id number] encounter with the patient on the same day, and personally performed and documented my assessment and findings in the medical record. PT seen and examined. Clinically feels stronger. Anticipate return to [facility], discussed plan to continue iron as out patient. OK for DC from heme/onc standpoint. Hgb increasing. No neurologic event while Apixaban on hold, pending resumption of Apixaban. Carley Francis Aug 08, 2016 09:56 Cori Isaac MD Aug 08, 2016 19:17
--- NOTE | 2016-08-08 14:46 | HHI.PR ---
Subjective Remarks Follow up anemia. Patient seen and examined while laying in bed. He was sitting up eating and drinking. Denies any new complaints. Denies any bloody stools, chest pain, or shortness of breath. He states he feels good to get back to [facility]. Lab values were discussed with patient, and the need for another day of IVF, encouraged him to increase oral intake as well. Objective Vitals Vital Signs Date Time Temp Pulse Resp B/P Pulse Ox O2 Delivery O2 Flow Rate FiO2 08/08/16 12:12 98.2 63 20 130/71 94 08/08/16 07:25 97.8 90 22 164/85 96 08/08/16 05:59 89 148/74 08/08/16 04:39 96.3 90 18 181/97 97 08/08/16 00:00 97.0 87 22 172/90 96 08/07/16 20:00 96.2 84 22 151/80 95 08/07/16 20:00 80 08/07/16 15:54 97.0 77 20 160/77 94 I/O 08/07/16 08/07/16 08/07/16 08/08/16 08/08/16 08/08/16 07:00 15:00 23:00 07:00 15:00 23:00 Intake Total 960 ml 3070 ml 928 ml Balance 960 ml 3070 ml 928 ml Intake Oral 960 ml 720 ml IV Total 2350 ml 928 ml # Voids 2 3 3 # Bowel Movements 1 1 1 Result Diagram: 08/08/16 0430 08/08/16 0430 Imaging Last Impressions Abdomen/Pelvis CT 08/07/16 0000 Signed Impressions: Service Date/Time: July 10:30 - CONCLUSION: 1. Bilateral hydronephrosis and probable parapelvic cysts. 2. Cholelithiasis. 3. There are cystic masses near the head of the pancreas and body of the pancreas and the pancreas is atrophic. Further characterization with abdominal MRI is suggested if indicated clinically. 4. Slight AAA. KSherman Ferraro MD Objective Remarks GENERAL: Well-developed well-nourished. In no acute distress. SKIN: Warm and dry. No lesions noted. HEENT: Normocephalic. Pupils equal and round. Mucous membranes pink and moist. CARDIOVASCULAR: Regular rate and rhythm. No murmur appreciated. RESPIRATORY: No accessory muscle use. Clear to auscultation. Breath sounds equal bilaterally. GASTROINTESTINAL: Abdomen soft, non-tender, nondistended. Bowel sounds x4. MUSCULOSKELETAL: No obvious deformities. No clubbing or cyanosis. No edema. NEUROLOGICAL: Awake and alert. No focal neurological deficits. Moves upper and lower extremities spontaneously. Normal speech. PSYCHIATRIC: Appropriate mood and affect; insight and judgment normal. Medications and IVs Current Medications Medications (Trade) Dose Ordered Sig/Constance Route Start Time Stop Time Status Last Admin (NS Flush) 2 ml UNSCH PRN IV FLUSH 08/05/16 21:45 (NS Flush) 2 ml BID IV FLUSH 08/06/16 09:00 08/06/16 09:45 (Zofran Inj) 4 mg Q6H PRN IVP 08/05/16 21:45 (Narcan Inj) 0.4 mg UNSCH PRN IV 08/05/16 21:45 (Norvasc) 10 mg DAILY PO 08/07/16 12:00 08/08/16 08:47 (Protonix) 40 mg DAILY PO 08/08/16 09:00 08/08/16 08:46 (Silvadene 1% Cream (50 Gm)) 1 applic DAILY PRN TOPICAL 08/07/16 12:00 Amoxicillin 500 mg 500 mg TID PO 08/07/16 18:00 08/08/16 13:48 (1/2 NS 1000 ml Inj) 1,000 ml @ 84 mls/hr [id number] IV 08/08/16 07:30 08/08/16 08:47 (Apresoline) 25 mg Q8HR PO 08/08/16 08:12 08/08/16 13:48 (Lopressor) 25 mg Q12HR PO 08/08/16 09:00 08/08/16 08:47 Urinary Catheter: No Vascular Central Line Catheter: No A/P Assessment and Plan 89-year-old male with a past medical history of HTN, CAD, A. fib, CKD, Hx prostate cancer with obstructive uropathy and radiation proctitis who is sent from [facility] for possible GI bleeding Anemia, normocytic, iron deficiency Hemoglobin 7.8 at admission, transfuse 2 units PRBCs and hemoglobin 9.8-->8.9--> 9.2 -Hematology consulted and ordered B12 and iron transfusion -Recommending to trend HGB. Possible GI bleeding Patient with recent EGD and colonoscopy last month which showed gastritis and abnormal, friable colon mucosa. -GI consulted and has signed off, plan for patient to follow up outpatient with Dr. Lugo and will discuss for the need for capsule endoscopy in 2-4 weeks - Cont PPI -Discussed with Dr. Lugo, ok to restart Eliquis at lower dosing HERBERTH on CKD Creatinine 3.66 on admission, slowly improving 2.92, previously 2.05 on 07/21/16. Possibly prerenal secondary to anemia/blood loss vs postrenal due to history of obstructive uropathy. -Continue IVF and follow-up BMP in AM. Abnormal UA Patient denies any urinary symptoms. Afebrile with no leukocytosis. Culture grew staph aureus, resistant to PCN -Change to Bactrim 400/80 BID , lower dose due to decreased kidney function SVT/history of A. fib: Echocardiogram with mild LVH, systolic function within normal limits, EF 50%. Patient's acute care nurse, Dr. Vines consulted, recommends resuming Eliquis 2.5mg BID. -Anemia improved. Eliquis restarted. -Monitor on telemetry. Hypertension: Chronic. Resume home amlodipine and hydralazine with holding parameters. Monitor. DVT prophylaxis: SCDs. Eliquis Discussed with Dr. Silva Discharge Planning Pending labs in [place] Singleton Aug 08, 2016 14:46
--- NOTE | 2016-08-08 17:18 | PD.CARD.PN ---
Subjective Subjective Remarks No CP or SOB, feels well, eating breakfast Objective Medications Current Medications Medications (Trade) Dose Ordered Sig/Constance Route Start Time Stop Time Status Last Admin (NS Flush) 2 ml UNSCH PRN IV FLUSH 08/05/16 21:45 (NS Flush) 2 ml BID IV FLUSH 08/06/16 09:00 08/06/16 09:45 (Zofran Inj) 4 mg Q6H PRN IVP 08/05/16 21:45 (Narcan Inj) 0.4 mg UNSCH PRN IV 08/05/16 21:45 (Norvasc) 10 mg DAILY PO 08/07/16 12:00 08/08/16 08:47 (Protonix) 40 mg DAILY PO 08/08/16 09:00 08/08/16 08:46 (Silvadene 1% Cream (50 Gm)) 1 applic DAILY PRN TOPICAL 08/07/16 12:00 Amoxicillin 500 mg 500 mg TID PO 08/07/16 18:00 08/08/16 13:48 (1/2 NS 1000 ml Inj) 1,000 ml @ 84 mls/hr [id number] IV 08/08/16 07:30 08/08/16 08:47 (Apresoline) 25 mg Q8HR PO 08/08/16 08:12 08/08/16 13:48 (Lopressor) 25 mg Q12HR PO 08/08/16 09:00 08/08/16 08:47 (Eliquis) 2.5 mg BID PO 08/08/16 21:00 (Bactrim 400-80 Mg) 1 tab Q12HR PO 08/08/16 21:00 Vital Signs / I&O Vital Signs Date Time Temp Pulse Resp B/P Pulse Ox O2 Delivery O2 Flow Rate FiO2 08/08/16 15:43 97.9 82 20 154/71 96 08/08/16 15:14 77 08/08/16 12:12 98.2 63 20 130/71 94 08/08/16 07:25 97.8 90 22 164/85 96 08/08/16 05:59 89 148/74 08/08/16 04:39 96.3 90 18 181/97 97 08/08/16 00:00 97.0 87 22 172/90 96 08/07/16 20:00 96.2 84 22 151/80 95 08/07/16 20:00 80 I/O 08/07/16 08/07/16 08/07/16 08/08/16 08/08/16 08/08/16 07:00 15:00 23:00 07:00 15:00 23:00 Intake Total 960 ml 3070 ml 928 ml Balance 960 ml 3070 ml 928 ml Intake Oral 960 ml 720 ml IV Total 2350 ml 928 ml # Voids 2 3 3 # Bowel Movements 1 1 1 Physical Exam GENERAL: In NAD SKIN: Warm and dry. HEAD: Normocephalic. EYES: No scleral icterus. No injection or drainage. NECK: Supple, trachea midline. No JVD or lymphadenopathy. CARDIOVASCULAR: Irregular rate and rhythm without murmurs, gallops, or rubs. RESPIRATORY: Breath sounds equal bilaterally. No accessory muscle use. GASTROINTESTINAL: Abdomen soft, non-tender, nondistended. MUSCULOSKELETAL: No cyanosis, or edema. Laboratory Laboratory Tests Test 08/08/16 04:30 White Blood Count 9.7 TH/MM3 Red Blood Count 3.43 MIL/MM3 Hemoglobin 9.2 GM/DL Hematocrit 28.0 % Mean Corpuscular Volume 81.7 FL Mean Corpuscular Hemoglobin 26.7 PG Mean Corpuscular Hemoglobin 32.7 % Concent Red Cell Distribution Width 20.2 % Platelet Count 212 TH/MM3 Mean Platelet Volume 7.5 FL Neutrophils (%) (Auto) 80.7 % Lymphocytes (%) (Auto) 8.9 % Monocytes (%) (Auto) 6.8 % Eosinophils (%) (Auto) 2.9 % Basophils (%) (Auto) 0.7 % Neutrophils # (Auto) 7.8 TH/MM3 Lymphocytes # (Auto) 0.9 TH/MM3 Monocytes # (Auto) 0.7 TH/MM3 Eosinophils # (Auto) 0.3 TH/MM3 Basophils # (Auto) 0.1 TH/MM3 CBC Comment DIFF FINAL Differential Comment Sodium Level 147 MEQ/L Potassium Level 3.7 MEQ/L Chloride Level 116 MEQ/L Carbon Dioxide Level 21.6 MEQ/L Anion Gap 9 MEQ/L Blood Urea Nitrogen 66 MG/DL Creatinine 2.92 MG/DL Estimat Glomerular Filtration 20 ML/MIN Rate Random Glucose 112 MG/DL Calcium Level 8.1 MG/DL CA 19-9 Antigen 21.4 U/ML Imaging Last Impressions Abdomen/Pelvis CT 08/07/16 0000 Signed Impressions: Service Date/Time: July 10:30 - CONCLUSION: 1. Bilateral hydronephrosis and probable parapelvic cysts. 2. Cholelithiasis. 3. There are cystic masses near the head of the pancreas and body of the pancreas and the pancreas is atrophic. Further characterization with abdominal MRI is suggested if indicated clinically. 4. Slight AAA. K. Manuel Ferraro MD Assessment and Plan Problem List: (1) Anemia (2) GI bleed (3) Acute kidney injury superimposed on chronic kidney disease (4) HTN (hypertension) (5) Atrial fibrillation Assessment and Plan Continue monitoring. Renal fx improving. Continue Eliquis 2.5 mg BID. Increase activity. No new cardiac issues. Problem Qualifiers (1) Anemia: Qualified Code: D64.9 - Anemia, unspecified type (2) GI bleed: Qualified Code: K92.2 - Gastrointestinal hemorrhage, unspecified gastrointestinal hemorrhage type Wilma Vines MD Aug 08, 2016 17:18
[2016-08-08] MEDS ORDERED: IRON SUCROSE INJ 100 MG in SODIUM CHLORIDE 0.9% INJ 100 ML IV ONE (20:30)
[2016-08-08] MEDS ORDERED: APIXABAN 2.5 MG TABLET PO SCH (21:00)
[2016-08-08] MEDS ORDERED: PILL SPLITTER OTHER PRN (21:45)
[2016-08-08] MEDS: SULFAMETHOXAZOLE-TRIMETHOPRIM 400-80 MG TAB PO SCH (22:08)
[2016-08-08] MEDS: APIXABAN 5 MG TABLET PO SCH (22:08)
[2016-08-09 00:54] VITALS: BP 157/86; PULSE 74; RESP 20; TEMP 98.1; O2SAT 94
[2016-08-09 05:27] VITALS: BP 156/78; PULSE 82; RESP 20; TEMP 98.2; O2SAT 94
[2016-08-09] MEDS: hydrALAZINE HCL 25 MG TAB PO SCH ×3 (06:30→20:38)
[2016-08-09 07:15] VITALS: PULSE 76
[2016-08-09] MEDS: SODIUM CHLOR 0.45% 1000 ML INJ 1,000 ML IV SCH ×2 (07:20→19:15)
[2016-08-09 08:00] VITALS: BP 162/77; PULSE 83; RESP 18; TEMP 98; O2SAT 97
[2016-08-09 08:28] LABS: AUTOMATED NEUTROPHIL # 6.9 TH/MM3 (1.8-7.7); BASOPHIL # 0.1 TH/MM3 (0-0.2); BASOPHIL % 1.1 % (0.0-2.0); EOSINOPHIL # 0.3 TH/MM3 (0-0.4); EOSINOPHIL % 3.2 % (0.0-4.0); HEMO FLAGS DIFF FINAL; MEAN CELL VOLUME 82.2 FL (80.0-100.0); MEAN CORPUSCULAR HGB CONC 31.6 % (32.0-36.0); MONO % 6.8 % (0.0-8.0); NEUT % 77.9 % (16.0-70.0); PLATELET COUNT 185 TH/MM3 (150-450); RED BLOOD COUNT 3.53 MIL/MM3 (4.50-5.90); RED CELL DISTRIBUTION WIDTH 20.6 % (11.6-17.2); WHITE BLOOD COUNT 8.9 TH/MM3 (4.0-11.0)
[2016-08-09 08:40] LABS: BICARBONATE 19.4 MEQ/L (21.0-32.0); POTASSIUM 4.5 MEQ/L (3.5-5.1)
[2016-08-09] MEDS: SODIUM CHLORIDE 0.9% FLUSH 10 ML FLUSH IV FLUSH SCH (08:43)
[2016-08-09] MEDS: APIXABAN 5 MG TABLET PO SCH ×2 (08:44→20:37)
[2016-08-09] MEDS: SULFAMETHOXAZOLE-TRIMETHOPRIM 400-80 MG TAB PO SCH ×2 (08:44→20:38)
[2016-08-09] MEDS: METOPROLOL TARTRATE 25 MG TAB PO SCH ×2 (08:45→20:38)
[2016-08-09] MEDS: AMOXICILLIN (TRIHYDRATE) 500 MG CAP PO SCH (08:46)
[2016-08-09] MEDS: PANTOPRAZOLE SOD 40 MG DELAYED RELEASE TAB PO SCH (08:46)
[2016-08-09] MEDS: amLODIPine BESYLATE 5 MG TAB PO SCH (08:46)
[2016-08-09] MEDS ORDERED: BACT400T PO (09:46)
[2016-08-09] MEDS ORDERED: APIX5TAB PO (09:46)
[2016-08-09] MEDS ORDERED: METO25TA3 PO (09:46)
--- NOTE | 2016-08-09 09:55 | HHI.DS ---
Dr. Perrin Discharge Summary Admission Date Aug 07, 2016 at 12:13 Discharge Date: Aug 09, 2016 Admitting Diagnosis acute on chronic kidney failure, GI bleed, hematoma, Anemia (1) Acute kidney injury superimposed on chronic kidney disease ICD Code: N17.9 Diagnosis: Secondary (2) GI bleed ICD Code: K92.2 Diagnosis: Principal (3) HTN (hypertension) ICD Code: I10 Diagnosis: Secondary (4) Normocytic anemia ICD Code: D64.9 Diagnosis: Principal (5) Atrial fibrillation ICD Code: I48.91 Diagnosis: Secondary (6) UTI (urinary tract infection) ICD Code: N39.0 Diagnosis: Secondary Procedures none Brief History - From Admission History from patient, ER provided medication, and review of medical records. Patient reported that the staff members at rehabilitation facility where he resides thought that he was bleeding because he noted some blood in his stool. However he reports that he has a wound in his behind and that was also bleeding previously. He states they are not sure whether the blood is coming from that ulcer or from his stool itself. He himself is also not sure. In the emergency room, guaiac test was done by ER provider and this was positive. Again, report stated that it was quite unclear whether there was contaminant from the wound itself. Patient himself denies any vomiting blood. He denies any nausea/vomiting/diarrhea. He denies any chest pain/palpitations/shortness of breath/dizziness/syncopal episodes. He states he was doing well and was able to participate in the physical therapy there. 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 He reports that his baseline status as he was living with his and daughter at home previous to his last hospitalization and that he's been at the rehabilitation facility only for the past 1 month or so. Patient's blood work in the emergency room is noted to have elevated BUN and creatinine from his baseline. His hemoglobin is also somewhat low although not significant drop. Patient does have history of CAD. CBC/BMP: 08/09/16 0700 08/09/16 0700 Significant Findings Laboratory Tests Test 08/06/16 08/06/16 08/06/16 08/07/16 10:45 13:54 20:02 09:30 Hemoglobin 9.3 GM/DL 9.5 GM/DL 9.8 GM/DL 8.9 GM/DL (13.0-17.0) (13.0-17.0) (13.0-17.0) (13.0-17.0) Hematocrit 29.5 % 30.9 % 30.4 % 28.1 % (39.0-51.0) (39.0-51.0) (39.0-51.0) (39.0-51.0) Red Blood Count 3.41 MIL/MM3 (4.50-5.90) Mean Corpuscular Hemoglobin 26.0 PG (27.0-34.0) Mean Corpuscular Hemoglobin 31.6 % Concent (32.0-36.0) Red Cell Distribution Width 19.8 % (11.6-17.2) Neutrophils (%) (Auto) 83.1 % (16.0-70.0) Lymphocytes (%) (Auto) 8.2 % (9.0-44.0) Lymphocytes # (Auto) 0.7 TH/MM3 (1.0-4.8) Sodium Level 146 MEQ/L (136-145) Chloride Level 115 MEQ/L (98-107) Blood Urea Nitrogen 69 MG/DL (7-18) Creatinine 3.15 MG/DL (0.60-1.30) Estimat Glomerular Filtration 19 ML/MIN (>89) Rate Calcium Level 8.3 MG/DL (8.5-10.1) Test 08/08/16 08/09/16 04:30 07:00 Red Blood Count 3.43 MIL/MM3 3.53 MIL/MM3 (4.50-5.90) (4.50-5.90) Hemoglobin 9.2 GM/DL 9.2 GM/DL (13.0-17.0) (13.0-17.0) Hematocrit 28.0 % 29.0 % (39.0-51.0) (39.0-51.0) Mean Corpuscular Hemoglobin 26.7 PG 26.0 PG (27.0-34.0) (27.0-34.0) Red Cell Distribution Width 20.2 % 20.6 % (11.6-17.2) (11.6-17.2) Neutrophils (%) (Auto) 80.7 % 77.9 % (16.0-70.0) (16.0-70.0) Lymphocytes (%) (Auto) 8.9 % (9.0-44.0) Neutrophils # (Auto) 7.8 TH/MM3 (1.8-7.7) Lymphocytes # (Auto) 0.9 TH/MM3 (1.0-4.8) Sodium Level 147 MEQ/L 147 MEQ/L (136-145) (136-145) Chloride Level 116 MEQ/L 116 MEQ/L (98-107) (98-107) Blood Urea Nitrogen 66 MG/DL (7-18) 58 MG/DL (7-18) Creatinine 2.92 MG/DL 2.78 MG/DL (0.60-1.30) (0.60-1.30) Estimat Glomerular Filtration 20 ML/MIN (>89) 22 ML/MIN (>89) Rate Random Glucose 112 MG/DL (74-106) Calcium Level 8.1 MG/DL 8.1 MG/DL (8.5-10.1) (8.5-10.1) Mean Corpuscular Hemoglobin 31.6 % Concent (32.0-36.0) Carbon Dioxide Level 19.4 MEQ/L (21.0-32.0) Imaging Last Impressions Abdomen/Pelvis CT 08/07/16 0000 Signed Impressions: Service Date/Time: July 10:30 - CONCLUSION: 1. Bilateral hydronephrosis and probable parapelvic cysts. 2. Cholelithiasis. 3. There are cystic masses near the head of the pancreas and body of the pancreas and the pancreas is atrophic. Further characterization with abdominal MRI is suggested if indicated clinically. 4. Slight AAA. Edgar. Manuel Ferraro MD PE at Discharge GENERAL: Well-developed well-nourished. In no acute distress. SKIN: Warm and dry. No lesions noted. HEENT: Normocephalic. Pupils equal and round. Mucous membranes pink and moist. CARDIOVASCULAR: Regular rate and rhythm. No murmur appreciated. RESPIRATORY: No accessory muscle use. Clear to auscultation. Breath sounds equal bilaterally. GASTROINTESTINAL: Abdomen soft, non-tender, nondistended. Bowel sounds x4. MUSCULOSKELETAL: No obvious deformities. No clubbing or cyanosis. No edema. NEUROLOGICAL: Awake and alert. No focal neurological deficits. Moves upper and lower extremities spontaneously. Normal speech. PSYCHIATRIC: Appropriate mood and affect; insight and judgment normal. Pt update on day of discharge The patient is doing well today. He has no acute complaints. He's been eating and drinking well. He wants to go back to his SNF. Discussed with RN and case resource manager. Hospital Course 89-year-old male with a past medical history of HTN, CAD, A. fib, CKD, Hx prostate cancer with obstructive uropathy and radiation proctitis who is sent from SNF for possible GI bleeding Anemia, normocytic, iron deficiency Hemoglobin 7.8 at admission, transfused 2 units PRBCs. Hematology consulted and ordered B12 and IV iron infusion as well. Hemoglobin stable at 9.2 at discharge. No further bleeding noted after resuming Eliquis. Possible GI bleeding Patient with recent EGD and colonoscopy last month which showed gastritis and abnormal, friable colon mucosa. -GI consulted and has signed off, plan for patient to follow up outpatient with Dr. Lugo and will discuss for the need for capsule endoscopy in 2-4 weeks -Cont PPI -Cleared by GI to resume anticoagulation HERBERTH on CKD Creatinine 3.66 on admission, continued to slowly improve over the course of admission down to 2.78. Tolerating diet. Possibly prerenal secondary to anemia/ blood loss vs postrenal due to history of obstructive uropathy/UTI. -Follow up labs as outpatient in 2-3 days Abnormal UA Patient denies any urinary symptoms. Afebrile with no leukocytosis. Culture grew staph aureus, resistant to PCN -Continue course of Bactrim 400/80 BID renally dosed SVT/history of A. fib: Echocardiogram with mild LVH, systolic function within normal limits, EF 50%. Patient's bag cutter, Dr. Vines consulted, recommends resuming Eliquis 2.5mg BID (renally dosed). -Anemia improved. Eliquis restarted. Pt Condition on Discharge: Stable Discharge Disposition: Discharge to SNF Discharge Time: > 30 minutes Discharge Instructions DIET: Follow Instructions for: Heart Healthy Diet Activities you can perform: Regular-No Restrictions Follow up Referrals: Cardiology - 3 Weeks with Wilma Vines MD Gastroenterology - 2 Weeks @ [facility] - 3 Weeks with Cori Isaac MD PCP Follow-up - 2-3 Days with Berto Perrin MD New Orders: BASIC METABOLIC PROF - 2-3 Days CBC WITH DIFF - 2-3 Days New Medications: Apixaban (Eliquis) 5 Mg Tab 2.5 MG PO BID Blood Clot Prevention #60 TAB Metoprolol Tartrate (Metoprolol Tartrate) 25 Mg Tab 25 MG PO Q12HR Blood Pressure Management #60 TAB Sulfamethoxazole-Trimethoprim (Bactrim) 400-80 Mg Tab 1 TAB PO Q12HR UTI #15 TAB Continued Medications: Acetaminophen (Acetaminophen) 325 Mg Tab 650 MG PO Q4H PRN PAIN SCALE 1 TO 10 TAB Amlodipine (Norvasc) 5 Mg Tab 10 MG PO DAILY htn Days 90 TAB Ascorbic Acid (Vitamin C) 500 Mg Cap 500 MG PO Nutritional Supplement Ref 0 CAP Cholecalciferol (Vitamin D3) 50,000 Unit Tab 71632 UNITS PO WEEKLY Nutritional Supplement #1 Ref 0 BOTTLE Hydralazine (Hydralazine) 25 Mg Tab 25 MG PO TID htn Days 90 Ref 11 TAB Hydrocortisone (Topical) (Hydrocortisone 1% in Abso) 1 % Oin BID Rash Magnesium Hydroxide Liq (Milk of Magnesia Liq) 400 Mg/5 Ml Susp 30 ML PO Q12H PRN CONSTIPATION #15 Ref 5 BOTTLE Multiple Vitamin (Multiple Vitamin) 1 Tab 1 TAB PO DAILY Nutritional Supplement Ref 0 TAB Pantoprazole (Pantoprazole) 40 Mg Tab 40 MG PO DAILY gib #30 Ref 11 TAB Silver Sulfadiazine Topical (Silvadene Topical) 1 % Cream 1 APPLIC TOPICAL DAILY PRN pressure injury #400 Ref 0 GM Discontinued Medications: Apixaban (Eliquis) 5 Mg Tab 5 MG PO BID Blood Clot Prevention #[address] (Aspirin EC) 81 Mg Tabdr 81 MG PO EVERY OTHER DAY af Days 30 Ref 11 TAB Omeprazole (Omeprazole) 40 Mg Cap 40 MG PO DAILY #30 Ref 0 CAP Bennie Booth Aug 09, 2016 09:55
[2016-08-09 11:52] VITALS: BP 127/62; PULSE 63; RESP 20; TEMP 98; O2SAT 97
[2016-08-09 14:30] VITALS: BP 149/79; PULSE 73; RESP 20; TEMP 97.7; O2SAT 97
--- NOTE | 2016-08-09 17:24 | HHI.PR ---
Subjective Remarks The patient is doing well today. He has no acute complaints. He's been eating and drinking well. He wants to go back to his SNF. Discussed with RN and case coordinator. The patient was not discharged back to SNF today, because they are arranging for a bariatric bed. Objective Vitals Vital Signs Date Time Temp Pulse Resp B/P Pulse Ox O2 Delivery O2 Flow Rate FiO2 08/09/16 14:30 97.7 73 20 149/79 97 08/09/16 11:52 98.0 63 20 127/62 97 08/09/16 08:00 98.0 83 18 162/77 97 08/09/16 05:27 98.2 82 20 156/78 94 08/09/16 00:54 98.1 74 20 157/86 94 08/08/16 20:40 98.2 85 20 151/87 93 08/08/16 20:00 83 I/O 08/08/16 08/08/16 08/08/16 08/09/16 08/09/16 08/09/16 07:00 15:00 23:00 07:00 15:00 23:00 Intake Total 928 ml 1240 ml Balance 928 ml 1240 ml IV Total 928 ml 1240 ml # Voids 3 # Bowel Movements 1 Result Diagram: 08/09/16 0700 08/09/16 0700 Objective Remarks GENERAL: Well-developed well-nourished. In no acute distress. SKIN: Warm and dry. No lesions noted. HEENT: Normocephalic. Pupils equal and round. Mucous membranes pink and moist. CARDIOVASCULAR: Regular rate and rhythm. No murmur appreciated. RESPIRATORY: No accessory muscle use. Clear to auscultation. Breath sounds equal bilaterally. GASTROINTESTINAL: Abdomen soft, non-tender, nondistended. Bowel sounds x4. MUSCULOSKELETAL: No obvious deformities. No clubbing or cyanosis. No edema. NEUROLOGICAL: Awake and alert. No focal neurological deficits. Moves upper and lower extremities spontaneously. Normal speech. PSYCHIATRIC: Appropriate mood and affect; insight and judgment normal. Procedures none A/P Problem List: (1) Acute kidney injury superimposed on chronic kidney disease ICD Code: N17.9 Status: Acute (2) GI bleed ICD Code: K92.2 Status: Acute (3) HTN (hypertension) ICD Code: I10 Status: Acute (4) Normocytic anemia ICD Code: D64.9 Status: Acute (5) Atrial fibrillation ICD Code: I48.91 Status: Acute (6) UTI (urinary tract infection) ICD Code: N39.0 Status: Acute Assessment and Plan 89-year-old male with a past medical history of HTN, CAD, A. fib, CKD, Hx prostate cancer with obstructive uropathy and radiation proctitis who is sent from SNF for possible GI bleeding Anemia, normocytic, iron deficiency Hemoglobin 7.8 at admission, transfused 2 units PRBCs. Hematology consulted and ordered B12 and IV iron infusion as well. Hemoglobin stable at 9.2 at discharge. No further bleeding noted after resuming Eliquis. Possible GI bleeding Patient with recent EGD and colonoscopy last month which showed gastritis and abnormal, friable colon mucosa. -GI consulted and has signed off, plan for patient to follow up outpatient with Dr. Lugo and will discuss for the need for capsule endoscopy in 2-4 weeks -Cont PPI -Cleared by GI to resume anticoagulation HERBERTH on CKD Creatinine 3.66 on admission, continued to slowly improve over the course of admission down to 2.78. Tolerating diet. Possibly prerenal secondary to anemia/ blood loss vs postrenal due to history of obstructive uropathy/UTI. -Follow up labs as outpatient in 2-3 days Abnormal UA Patient denies any urinary symptoms. Afebrile with no leukocytosis. Culture grew staph aureus, resistant to PCN -Continue course of Bactrim 400/80 BID renally dosed SVT/history of A. fib: Echocardiogram with mild LVH, systolic function within normal limits, EF 50%. Patient's medical receptionist biller, Dr. Vines consulted, recommends resuming Eliquis 2.5mg BID (renally dosed). -Anemia improved. Eliquis restarted. Hypertension: Chronic. Resume home amlodipine and hydralazine with holding parameters. Monitor. DVT prophylaxis: SCDs. No chemical prophylaxis with anemia/possible bleeding as above. Discharge Planning Discharged back to SNF when arranged. Problem Qualifiers (1) GI bleed: Qualified Code: K92.2 - Gastrointestinal hemorrhage, unspecified gastrointestinal hemorrhage type Bennie Booth Aug 09, 2016 17:24
[2016-08-10 00:02] VITALS: PULSE 80
[2016-08-10] MEDS: hydrALAZINE HCL 25 MG TAB PO SCH (06:14)
[2016-08-10] MEDS: SODIUM CHLOR 0.45% 1000 ML INJ 1,000 ML IV SCH (07:10)
[2016-08-10 07:56] VITALS: BP 160/89; PULSE 74; RESP 20; TEMP 98.3; O2SAT 96
[2016-08-10] MEDS: APIXABAN 5 MG TABLET PO SCH (08:40)
[2016-08-10] MEDS: amLODIPine BESYLATE 5 MG TAB PO SCH (08:40)
[2016-08-10] MEDS: METOPROLOL TARTRATE 25 MG TAB PO SCH (08:41)
[2016-08-10] MEDS: SULFAMETHOXAZOLE-TRIMETHOPRIM 400-80 MG TAB PO SCH (08:41)
[2016-08-10] MEDS: PANTOPRAZOLE SOD 40 MG DELAYED RELEASE TAB PO SCH (08:41)
[2016-09-10] MEDS ORDERED: TAMS0.4C4 PO (14:56)
[2016-09-10] MEDS ORDERED: BETH25TA2 PO (14:57)
[2016-10-15] MEDS ORDERED: TYLE325T PO (09:54)
[2016-10-15] MEDS ORDERED: CHOL1CAP34 PO (09:54)
[2016-10-15] MEDS ORDERED: HYDR-3799 PO (09:54)
== END 2016-08-10 13:15 | DRG 683 ==
LOC: NEDAMB 16:54 → NEDA 22:16 → NEPHCDU 23:42 → OBSVTOIN 08-07 12:13
PROVIDERS: ADMIT Hospitalist; ATTEND Hospitalist
PROC: 30233N1 Transfusion of Nonautologous Red Blood Cells into Peripheral Vein, Percutaneous Approach (ICD-10-PCS; principal; 2016-08-06)
DX: N17.9 Acute kidney failure, unspecified (principal); N39.0 Urinary tract infection, site not specified; B95.61 Methicillin susceptible Staphylococcus aureus infection as the cause of diseases classified elsewhere; Z16.11 Resistance to penicillins; D50.9 Iron deficiency anemia, unspecified; E86.0 Dehydration; I48.2 Chronic atrial fibrillation; N13.9 Obstructive and reflux uropathy, unspecified; I12.9 Hypertensive chronic kidney disease with stage 1 through stage 4 chronic kidney disease, or unspecified chronic kidney disease; N18.3 Chronic kidney disease, stage 3 (moderate); I25.10 Atherosclerotic heart disease of native coronary artery without angina pectoris; Z85.46 Personal history of malignant neoplasm of prostate; K62.7 Radiation proctitis; Z79.02 Long term (current) use of antithrombotics/antiplatelets; I87.8 Other specified disorders of veins; R60.9 Edema, unspecified
CPT/HCPCS: 36430; 74176; 76937; 80048; 80053; 81001; 82378; 84080; 85014; 85018; 85025; 85610; 85730; 86301; 86403; 86850; 86900; 86901; 86920; 87086; 87186; 93005; 93306; G0378; G8987-GP; G8988-GP; J1756; J3420; J7030; J7040; P9016; Q9963